=== PATIENT | female | born 1970 | race Caucasian/White ===

== ENCOUNTER 2019-08-04 13:12 | Observation (INO) | payer OTHER, SELFPAY ==
[2019-08-04] VITALS (14 sets, daily range): BP systolic 125–147; BP diastolic 71–99; PULSE 76–111; RESP 16–26; TEMP 36.2–36.9; O2SAT 94–100; BMI 37.0
--- NOTE | ~2019-08-04 | MR_ITS ---
EXAMINATION: MR shoulder RT wo con DATE: 08/05/2019 12:52 INDICATION: Right shoulder pain. TECHNIQUE: Magnetic resonance imaging (MRI) of the right shoulder was performed without intravenous c ontrast. Sequences included axial PD-weighted FS FSE, coronal oblique PD-weighted FS FSE and T2-weigh tate FS FSE, and sagittal oblique T2-weighted FS FSE and T1-weighted FSE. COMPARISON: Right shoulder radiographs 08/04/2019 FINDINGS: Coracoacromial arch: The acromion undersurface is flat in morphology (type I). There is moderate acromioclavicular joint o steoarthritis. There is mild subacromial/subdeltoid bursitis. Rotator cuff: There is moderate supraspinatus and infraspinatus tendinopathy. Teres minor tendon is normal. Subscap ularis tendon is normal. There is no asymmetric fatty atrophy of the rotator cuff muscle bellies. Biceps tendon and glenoid labrum: Biceps tendon is in bicipital groove. Intra-articular biceps tendon is normal. The glenoid labrum is normal. Fluid: There is a small glenohumeral joint effusion. Bones/cartilage: The glenoid cartilage is normal. Humeral head cartilage is normal. IMPRESSION: 1. Moderate rotator cuff tendinopathy. No tear. 2. Moderate acromioclavicular joint osteoarthritis. 3. Mild subacromial/subdeltoid bursitis. 4. Small glenohumeral joint effusion. Reviewed, dictated and finalized at location A. ILITY CLAIMS EXAMINER
--- NOTE | ~2019-08-04 | XR_ITS ---
EXAMINATION: XR chest 2V 08/04/2019 14:13 INDICATION: Chest pain and arm numbness PROCEDURE: 2 view chest COMPARISON: Comparison to multiple prior studies sequentially, with oldest reviewed study dated 08/22. FINDINGS: The lungs are clear. The cardiomediastinal silhouette is within normal limits. There are no pleural effusions. There is no pneumothorax suspected. IMPRESSION: 1: NO ACUTE CARDIOPULMONARY DISEASE. Reviewed, dictated and finalized at location B. REPAIRER TOWER
--- NOTE | ~2019-08-04 | CT_ITS ---
EXAMINATION: CT brain wo con DATE: 08/04/2019 13:58 INDICATION: Numbness. TECHNIQUE: Computed tomography (CT) of the head was performed without intravenous contrast. The dose- length product was 605.33 mGy-cm. Automated exposure control and iterative reconstruction technique w ere employed. COMPARISON: None FINDINGS: There is a kyle cisterna magna. No acute intracranial hemorrhage, infarction, mass or mass effect. Mild generalized atrophy. No ventriculomegaly or midline shift. Basilar cisterns are patent. There is mild mucosal thickening of the ethmoid sinuses. Mastoids are pneumatized. No depressed skull fractures. IMPRESSION: 1. No acute intracranial abnormality. 2: Kyle cisterna magna 3: Mild sinus disease. Reviewed, dictated and finalized at location B. TER MAINTENANCE
--- NOTE | ~2019-08-04 | MR_ITS ---
EXAMINATION: MR cervical spine wo con DATE: 08/05/2019 12:52 INDICATION: Right arm numbness and tingling. TECHNIQUE: Magnetic resonance imaging (MRI) of the cervical spine was performed without intravenous c ontrast. Sequences included sagittal T2-weighted FSE, sagittal STIR FSE, sagittal T1-weighted FSE, ax ial MERGE, and axial T2-weighted FSE. COMPARISON: None FINDINGS: Motion artifact is noted. Bone alignment is normal. Vertebral body heights are normal. Ther e is mildly decreased disc height at C5-C6. The spinal cord signal intensity is normal. The following disc levels are specifically discussed: C2-C3: The disc does not extend beyond the endplate margin. There is no uncovertebral joint osteoarth ritis. There is mild bilateral facet joint osteoarthritis. There is no neural foraminal stenosis. The re is no central canal stenosis. C3-C4: The disc is bulging. There is mild bilateral uncovertebral joint osteoarthritis. There is no f acet joint osteoarthritis. There is mild bilateral neural foraminal stenosis. There is mild central c anal stenosis. C4-C5: The disc does not extend beyond the endplate margin. There is no uncovertebral joint osteoarth ritis. There is no facet joint osteoarthritis. There is no neural foraminal stenosis. There is no collins tral canal stenosis. C5-C6: The disc is bulging. There is severe right and moderate left uncovertebral joint osteoarthriti s. There is no facet joint osteoarthritis. There is moderate right and mild left neural foraminal simeon nosis. There is mild central canal stenosis with ventral indentation of the spinal cord. C6-C7: The disc does not extend beyond the endplate margin. There is no uncovertebral joint osteoarth ritis. There is no facet joint osteoarthritis. There is no neural foraminal stenosis. There is no collins tral canal stenosis. C7-T1: The disc does not extend beyond the endplate margin. There is no uncovertebral joint osteoarth ritis. There is mild bilateral facet joint osteoarthritis. There is mild bilateral neural foraminal s tenosis. There is no central canal stenosis. IMPRESSION: 1. Mild cervical spondylosis. Reviewed, dictated and finalized at location A. 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
--- NOTE | ~2019-08-04 | XR_ITS ---
EXAMINATION: XR shoulder RT min 2V DATE: 08/04/2019 14:13 INDICATION: Right shoulder pain. TECHNIQUE: 4 views of right shoulder were obtained. COMPARISON: Right shoulder radiographs 09/09/2018 FINDINGS: Bone alignment is normal. No fracture. Glenohumeral joint is normal. There is mild acromioc lavicular joint osteoarthritis. IMPRESSION: 1. Mild right acromioclavicular joint osteoarthritis. Reviewed, dictated and finalized at location A. L SUMMER INTERN
--- NOTE | 2019-08-04 13:15 | ECG_ITS ---
Measurements Intervals [place] Rate: 100 P: 67 CT: 162 QRS: 50 QRSD: 101 T: 48 QT: 339 QTc: 439 Interpretive Statements SINUS TACHYCARDIA MINIMAL Q WAVES- INFERIOR LEADS BORDERLINE ECG Electronically Signed On 08-04-2019 13:21:01 NURSING SURGICAL SERVICES DIRECTOR by Dejuan Cardoso D.O.
[2019-08-04 13:34] LABS: Basophils Absolute Auto 0.1 K/mm3 (0.0-0.1); Basophils Percent Auto 0.9 % (0.2-1.2); Eosinophils Absolute Auto 0.2 K/mm3 (0-0.3); Eosinophils Percent Auto 3.5 % (0-4.4); Hematocrit 41.5 % (37.0-47.0); Hemoglobin 13.8 g/dL (12.0-15.0); Immature Granulocyte Absolute 0.01 K/mm3 (0.00-0.031); Immature Granulocyte Percent A 0.2 % (0-0.5); Lymphocytes Absolute Auto 2.45 K/mm3 (0.9-3.2); Lymphocytes Percent Auto 43.1 % (18.3-44.2); Mean Corpuscular HGB Conc 33.3 g/dl (32-36); Mean Corpuscular Hemoglobin 32.6 pg (26-34); Mean Corpuscular Volume 98.1 fl (80-100); Mean Platelet Volume 9.1 fl (7.4-10.4); Monocytes Absolute Auto 0.5 K/mm3 (0.1-0.6); Monocytes Percent Auto 8.1 % (2.6-8.5); Neutrophils Absolute Auto 2.5 K/mm3 (1.3-6.7); Neutrophils Percent Auto 44.2 % (45.5-73.1); Platelet Count Result 271 k/mm3 (150-375); Red Blood Count 4.23 M/mm3 (4.2-5.4); Red Cell Distribution Width 12.3 % (11.5-14.5); White Blood Count 5.7 K/mm3 (4.5-10.0)
--- NOTE | 2019-08-04 13:42 | ED.EXTPRO ---
HPI - Extremity Problem General Chief complaint: Chest Pain Stated complaint: Pain/numbess in back and right arm Time Seen by Provider: 08/04/19 13:37 Source: patient and RN notes reviewed Mode of arrival: ambulatory Limitations: no limitations History of Present Illness HPI Narrative: Pt is a 49 y/o female who presents to the ED with c/o rt arm pain. 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 Pt notes that she has had pain radiating from her rt hand up her rt arm and into her rt posterior shoulder. She states that movement of her rt arm aggravates her pain. Pt states that she has had intermittent numbness in her rt arm and swelling in her rt hand. Pt also reports lt sided chest tightness as of yesterday, a cough, and chronic back pain, but denies any numbness in her legs or fever. She notes that her CP is currently resolved. MD Complaint: extremity pain Pain Consistency: constant Location: right and upper extremity Exacerbating factors: range of motion Associated symptoms: chest pain (lt sided chest tightness (resolved)) and other (numbness in rt arm; swelling in rt hand; cough; back pain (chronic)) Related Data Home Medications Medication Instructions Recorded Confirmed hydrocodone-acetaminophen [Vicodin 1 tablet PO BID PRN 08/04/19 HP] metformin mg PO 08/04/19 Allergies Allergy/AdvReac Type Severity Reaction Status Date / Time No Known Allergies Allergy Unknown Unverified 08/04/19 13:18 Review of Systems Review of Systems: Narrative: CONSTITUTIONAL: Denies fever, chills, or sweats. CARDIOVASCULAR: Reports lt sided chest tightness (resolved). Denies palpitations or edema. RESPIRATORY: Reports cough. Denies dyspnea. GASTROINTESTINAL: Denies abdominal pain, nausea, vomiting, or diarrhea. MUSCULOSKELETAL: Reports rt arm pain extending into rt posterior shoulder, swelling in rt hand, and chronic back pain. NEUROLOGIC: Denies headache or weakness. Reports numbness in rt arm. Denies numbness in legs. All systems reviewed & are unremarkable except as noted in HPI and below PMFSH Past Medical History Medical History Anxiety Bowel obstruction Bowel perforation Bronchitis COPD (chronic obstructive pulmonary disease) Depression Diverticulitis Emphysema of lung Pneumonia Type 2 diabetes mellitus Surgical History Surgical History History of ankle surgery Hx of knee surgery Hx of spinal surgery Hx of tubal ligation Family History Family History (Updated 03/27/17 @ 10:23 by DOCTOR UNKNOWN) Mother Patient's mother is in good health Family history of Alzheimer's disease Sibling Family history of type 2 diabetes mellitus Father Family history of malignant neoplasm of kidney Social History Social History Smoking status: Current every day smoker Second hand tobacco smoke exposure: No Alcohol intake: current Gender identity (if verbalized by the patient): Female Exam Narrative: Exam Narrative: GENERAL: Well-appearing, well-nourished, and in no acute distress. HEAD: Normocephalic, atraumatic. EYES: PERRLA and EOMI. ENT: Nares clear, no rhinorrhea or epistaxis. Mucous membranes moist. NECK: Supple. No cervical midline tenderness. No step-offs or deformities. CHEST: Bilateral expiratory wheezing. No respiratory distress. HEART: Regular rate and rhythm. No murmur heard. Normal peripheral pulses. ABDOMEN: Soft, nontender, nondistended, normal active bowel sounds. EXTREMITIES: No edema. Tenderness over trapezius. Pain with abduction of rt upper extremity. Tenderness over the trapezius. This reproduces pain. Intact sensation over the deltoid. Intact sensation median, ulnar, radial nerve distribution. Crm Architect strength 5 out of 5. Radial pulse is 2+. SKIN: Warm, dry, no rash. NEURO: No focal deficits. Alert and or
[2019-08-04 13:43] LABS: INR 0.9; Prothrombin Time 11.3 Seconds (11.1-14.7)
[2019-08-04 13:44] LABS: Partial Thromboplastin Time 27.9 SECONDS (22.3-36.8)
[2019-08-04] MEDS: ASPIRIN 81 MG CHEWABLE TABLET 324 MG PO (13:45)
[2019-08-04 13:46] LABS: Blood Urea Nitrogen 13 mg/dL (7-17); Calcium 8.4 mg/dL (8.4-10.2); Carbon Dioxide 22 mmol/L (22-30); Chloride 105 mmol/L (98-107); Estimated CRCL calculation 130 ml/min; Estimated Glomerular Filt Rate > 60; Glucose 148 mg/dL (65-105); Potassium 4.1 mmol/L (3.4-5.0); Sodium 139 mmol/L (137-145)
--- NOTE | 2019-08-04 13:51 | PC.NURSE ---
Patient to CT at this time.
[2019-08-04 13:59] LABS: Troponin I 0.065 ng/mL (0.000-0.034)
--- NOTE | 2019-08-04 14:12 | PCRCNOTE ---
[address] 1406 Pt in X-ray. 1415 Pt returned to room.
[2019-08-04] MEDS: ALBUTEROL SULFATE NEB 2.5 MG/0.5 ML INH 5 MG INHALATION ×2 (14:15→21:42)
[2019-08-04] MEDS: IPRATROPIUM BR 0.02% INH SOLN 0.5 MG/2.5 ML VIAL 1 MG INHALATION (14:15)
[2019-08-04] MEDS: ACETAMINOPHEN 500 MG TABLET 1000 MG PO (14:43)
[2019-08-04] MEDS: methylPREDNISolone SOD SUCC 125 MG VIAL IV PUSH (14:44)
[2019-08-04] MEDS: KETOROLAC 15 MG/ML VIAL (*BKC) IV PUSH (14:44)
[2019-08-04] MEDS: SODIUM CHLORIDE 0.9% IV 500 ML 999 ML IV CONT (14:45)
[2019-08-04 17:13] LABS: Troponin I 0.047 ng/mL (0.000-0.034)
--- NOTE | 2019-08-04 17:20 | PC.NURSE ---
This patient, Padma Santana, was admitted to IMU Room 204-01. Patient/family oriented to hospital policies and general routines including ID bracelet, bed and alarms, visiting hours, pain management, procedures, bathroom and other care routines, personal items, smoking policy, room service/diet, and visiting hours. Valuables list has been completed. Information on how to activate the Rapid Response Team has been discussed. Patient/Family are encouraged to report perceived risks to care and to ask questions if they do not understand what they are told or what they should do.
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
[2019-08-04 20:10] LABS: Troponin I 0.023 ng/mL (0.000-0.034)
[2019-08-04 20:34] LABS: Hemoglobin A1C 5.8 % (<5.7)
[2019-08-04 20:49] LABS: Glucose Point of Care 224 (65-105)
[2019-08-04] MEDS: IPRATROPIUM BR 0.02% INH SOLN 0.5 MG/2.5 ML VIAL INHALATION (21:42)
[2019-08-05] VITALS (14 sets, daily range): BP systolic 130–140; BP diastolic 68–96; PULSE 59–111; RESP 18–20; TEMP 36.1–36.7; O2SAT 96–98
--- NOTE | 2019-08-05 | EST_ITS ---
Patient Info Name: Padma Santana Age: 49 years : 1970 Gender: Female Ht: 69 in Wt: 250 lbs BSA: 2.40 m2 Exam Date: 08/05/2019 8:26 AM [facility] Patient Status: Inpatient Admit Date: 08/04/2019 Staff Ordering Physician: Oscar Augustin MD Seaming Machine Operator: Zully Balderas RDCS Attending Provider: DR ARTIS Exam Type: CA stress echo Study Info Indications R07.89 - Other chest pain Treadmill exercise stress echocardiogram is performed. Summary 1. Patient exercised for 4 minutes and 18 seconds on Andrews protocol achieving \R\7 METs. HR was 93 at rest, went up to 145 which was 84% of her max target heart rate. BP was 133/91 at rest, went up to 162/70 at peak exercise. No evidence of ischemia on EKG at rest or peak stress. LV function was normal to hyperdynamic at rest and augmented to hyperdynamic at peak exercise. LV cavity became smaller at peak exercise. Summary: Negative stress test by EKG and echocardiogram criteria. Protocol: Andrews Stress ECG Details Stage: REST Duration (min): 1 min : 6 sec Speed (mph): 0.0 Grade (%): 0 HR (bpm): 108 SBP (mmHg): 133 DBP (mmHg): 91 METS: --- Stage: REST Duration (min): 12 min : 21 sec Speed (mph): 0.0 Grade (%): 0 HR (bpm): 110 SBP (mmHg): 133 DBP (mmHg): 91 METS: --- Stage: STAGE 1 Duration (min): 1 min : 0 sec Speed (mph): 1.7 Grade (%): 10 HR (bpm): 127 SBP (mmHg): 133 DBP (mmHg): 91 METS: --- Stage: STAGE 1 Duration (min): 2 min : 0 sec Speed (mph): 1.7 Grade (%): 10 HR (bpm): 136 SBP (mmHg): 133 DBP (mmHg): 91 METS: --- Stage: STAGE 1 Duration (min): 3 min : 0 sec Speed (mph): 1.7 Grade (%): 10 HR (bpm): 140 SBP (mmHg): 161 DBP (mmHg): 80 METS: --- Stage: STAGE 2 Duration (min): 1 min : 0 sec Speed (mph): 2.5 Grade (%): 12 HR (bpm): 144 SBP (mmHg): 161 DBP (mmHg): 80 METS: --- Stage: STAGE 2 Duration (min): 1 min : 18 sec Speed (mph): 0.0 Grade (%): 0 HR (bpm): 145 SBP (mmHg): 161 DBP (mmHg): 80 METS: --- Stage: RECOVERY Duration (min): 0 min : 41 sec Speed (mph): 0.0 Grade (%): 0 HR (bpm): 124 SBP (mmHg): 162 DBP (mmHg): 70 METS: --- Stage: RECOVERY Duration (min): 1 min : 41 sec Speed (mph): 0.0 Grade (%): 0 HR (bpm): 114 SBP (mmHg): 162 DBP (mmHg): 70 METS: --- Stage: RECOVERY Duration (min): 2 min : 41 sec Speed (mph): 0.0 Grade (%): 0 HR (bpm): 113 SBP (mmHg): 159 DBP (mmHg): 67 METS: --- Stage: RECOVERY Duration (min): 3 min : 41 sec Speed (mph): 0.0 Grade (%): 0 HR (bpm): 102 SBP (mmHg): 159 DBP (mmHg): 67 METS: --- Stage: RECOVERY Duration (min): 4 min : 41 sec Speed (mph): 0.0 Grade (%): 0 HR (bpm): 102 SBP (mmHg): 152 DBP (mmHg): 68 METS: ---
[2019-08-05 05:10] LABS: Basophils Percent Auto 0.2 % (0.2-1.2); Hematocrit 39.9 % (37.0-47.0); Hemoglobin 13.4 g/dL (12.0-15.0); Immature Granulocyte Absolute 0.03 K/mm3 (0.00-0.031); Immature Granulocyte Percent A 0.3 % (0-0.5); Lymphocytes Absolute Auto 0.85 K/mm3 (0.9-3.2); Lymphocytes Percent Auto 8.6 % (18.3-44.2); Mean Corpuscular HGB Conc 33.6 g/dl (32-36); Mean Corpuscular Hemoglobin 33.1 pg (26-34); Mean Corpuscular Volume 98.5 fl (80-100); Mean Platelet Volume 9.7 fl (7.4-10.4); Monocytes Absolute Auto 0.2 K/mm3 (0.1-0.6); Monocytes Percent Auto 1.5 % (2.6-8.5); Neutrophils Absolute Auto 8.8 K/mm3 (1.3-6.7); Neutrophils Percent Auto 89.4 % (45.5-73.1); Platelet Count Result 282 k/mm3 (150-375); Red Blood Count 4.05 M/mm3 (4.2-5.4); Red Cell Distribution Width 11.9 % (11.5-14.5); White Blood Count 9.9 K/mm3 (4.5-10.0)
[2019-08-05 05:27] LABS: CRP < 0.5 mg/dL (<1.0); Cholesterol 160 mg/dL (0-200); HDL Direct 54 mg/dL; Magnesium 2.1 mg/dL (1.6-2.3); Triglycerides 114 mg/dL (<150)
[2019-08-05 05:35] LABS: LDL Cholesterol Direct 86 mg/dL
[2019-08-05 06:11] LABS: Thyroid Stimulating Hormone Reflex 0.471 uIU/mL (0.465-4.68)
[2019-08-05 07:51] LABS: Glucose Point of Care 127 (65-105)
[2019-08-05] MEDS: ALBUTEROL SULFATE NEB 2.5 MG/0.5 ML INH 5 MG INHALATION ×2 (08:16→14:27)
[2019-08-05] MEDS: IPRATROPIUM BR 0.02% INH SOLN 0.5 MG/2.5 ML VIAL INHALATION ×2 (08:16→14:27)
[2019-08-05] MEDS: predniSONE 20 MG TABLET 60 MG PO (09:59)
[2019-08-05] MEDS: ASPIRIN 81 MG CHEWABLE TABLET PO (09:59)
[2019-08-05] MEDS: CYCLOBENZAPRINE HCL 5 MG TABLET PO (10:00)
--- NOTE | 2019-08-05 10:05 | PM.CNCAR ---
Assessment and Plan Assessment and plan (1) Chest pain: Code(s): R07.9 - Chest pain, unspecified Status: Acute Assessment and Plan: With indeterminate trop elevation at 0.06 that subsequently normalized EKG with no ischemic changes Chest pain characteristic are atypical for angina Given her cardiovascular risk factors including obesity, DM and smoking will proceed with stress echo If that is normal then she should be stable for discharge from cardiac standpoint (2) Type 2 diabetes mellitus: Code(s): E11.9 - Type 2 diabetes mellitus without complications Status: Chronic Assessment and Plan: On Metformin (3) Tobacco abuse: Code(s): Z72.0 - Tobacco use Status: Acute Assessment and Plan: Smoking cessation and other lifestyle modifications is highly recommended History of Present Illness History of Present Illness Consult date/time: 08/05/19 10:05 49 year old female with h/o of DM on Metformin and tobacco abuse who presented with right shoulder pain. She reports pain from right shoulder down to the arm associated with numbness and tingling. Troponin checked in EF and was very mildly elevated at 0.06. She denies any active chest pain now but admits to prior chest pains including on Sunday. She has stable exertional dyspnea attributed to her tobacco abuse. Denies dizziness, lightheadedness or syncope. EKG with sinus rhythm with small inferior Q waves. Reason For Visit: Elevated troponin/shoulder strain/copd exacerbatio Review of Systems Review of Systems: All systems reviewed & are unremarkable except as noted in HPI and below Constitutional: Constitutional: Denies fatigue and Denies headache(s) Eyes: Eyes: Denies blurry vision ENT: Reports Normal hearing present and Denies headache(s) Cardiovascular: Cardiovascular: Denies chest pain, Denies diaphoresis, Denies pedal edema, Denies leg edema, Denies lightheadedness, Denies palpitations and Denies dyspnea Respiratory: Respiratory: Denies cough and Denies dyspnea Gastrointestinal: Gastrointestinal: Denies abdominal pain Musculoskeletal: Musculoskeletal: Denies back pain Neurologic: Reports Normal hearing present and Denies headache(s) Psychiatric: Psychiatric: Denies anxiety Endocrine: Endocrine: Denies fatigue and Denies palpitations [facility] Past Medical History Medical History (Updated 08/05/19 @ 10:11 by Helena White MD) Acute exacerbation of chronic obstructive pulmonary disease Anxiety Bowel obstruction Bowel perforation Patient had microperforation diverticulitis in 2017 and was treated conservatively without surgery Bronchitis COPD (chronic obstructive pulmonary disease) Degenerative disc disease Depression Diverticulitis Emphysema of lung Pneumonia Type 2 diabetes mellitus Surgical History Surgical History (Updated 08/04/19 @ 20:10 by Lilliana Vasquez NP) History of ankle surgery right ankle History of endometrial ablation Hx of knee surgery left knee Hx of spinal surgery L3, L4 Hx of tubal ligation Family History Family History (Updated 08/04/19 @ 20:11 by Lilliana Vasquez NP) Mother Alzheimer's disease Sibling Diabetes mellitus Type 2 Father Renal carcinoma Sibling No problems noted. Social History Social History (Updated 08/04/19 @ 20:27 by Lilliana Vasquez NP) Social History: Patient reports she has one child, a daughter. She has 1 brother and 2 sisters. She had another brother who is . Smoking packs per day: 0.5 Smoking cigarettes per day: 10.0 Years smoked: 25 Smoking pack-years: 12.50 Smoking status: Current every day smoker Tobacco type: cigarettes Second hand tobacco smoke exposure: No Alcohol intake: current Alcohol use details: Reports she occasionally drinks, goes out about once every 3 months and has a few drinks with friends Substance use: never Living arrangements: with f
[2019-08-05] MEDS: LIDOCAINE 5% PATCH 1 PATCH TRANSDERM (12:58)
[2019-08-05 13:02] LABS: Glucose Point of Care 193 (65-105)
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
== END 2019-08-05 16:05 | disposition home or self-care (01) ==
LOC: ANHED 15:43 → ANHIMU 18:28
PROVIDERS: Emergency Medicine; Nurse Practitioner; Admitting Provider Family Medicine; Emergency Provider Emergency Medicine; PCP Family Medicine Adolescent Medicine; Visit Provider Internal Medicine
DX: S46.911A Strain of unspecified muscle, fascia and tendon at shoulder and upper arm level, right arm, initial encounter (principal); X58.XXXA Exposure to other specified factors, initial encounter; Y99.0 Civilian activity done for income or pay; R79.89 Other specified abnormal findings of blood chemistry; F41.9 Anxiety disorder, unspecified; E11.9 Type 2 diabetes mellitus without complications; J43.9 Emphysema, unspecified; F17.210 Nicotine dependence, cigarettes, uncomplicated; M19.011 Primary osteoarthritis, right shoulder; M47.892 Other spondylosis, cervical region; M54.9 Dorsalgia, unspecified; G89.29 Other chronic pain; Z79.84 Long term (current) use of oral hypoglycemic drugs; Z79.899 Other long term (current) drug therapy
CPT/HCPCS: 36415; 70450; 71046; 72141; 73030; 73221; 80048; 80061; 83036; 83735; 84443; 84484; 85025; 85610; 85730; 86140; 87804; 93005; 93351; 94640; 96361; 96374; 96375; 99285; A9270; G0378; J1885; J2930; J7040; J7512

== ENCOUNTER 2021-05-20 21:20 | Emergency (ER) | payer OTHER, SELFPAY ==
--- NOTE | ~2021-05-20 | XR_ITS ---
XR shoulder LT min 2V DATE: 05/20/2021 23:05 INDICATION: Left shoulder pain, radiating TECHNIQUE: 4 views COMPARISON: None FINDINGS: There is moderately prominent osteoarthritic change of the left glenohumeral joint and mild degenerative change at the acromioclavicular joint. No fracture or dislocation, periosteal reaction or bone destruction. There is interbody spinal fusion at C5-6. IMPRESSION: Moderately prominent osteoarthritis at left glenohumeral joint Mild degenerative change at the left acromioclavicular joint Reviewed, dictated and finalized at location A. TRANSPORTATION OPERATOR
[2021-05-20 21:26] VITALS: BP 181/108; PULSE 111; RESP 22; TEMP 36.6; O2SAT 100
--- NOTE | 2021-05-20 21:41 | PC.NURSE ---
pt. hysterical in waiting room and hyperventilating. pt. instructed to focus on slow breathing.
--- NOTE | 2021-05-20 22:01 | ECG_ITS ---
Measurements Intervals [place] Rate: 113 P: 50 AR: 173 QRS: 20 QRSD: 93 T: 55 QT: 315 QTc: 433 Interpretive Statements SINUS TACHYCARDIA BASELINE ARTIFACT- I, III, AVR, AVL, AVF, V2 ABNORMAL ECG Electronically Signed On 05-21-2021 6:47:35 SOLID TIRE FINISHER by Dejuan Cardoso D.O.
--- NOTE | 2021-05-20 23:55 | ED.GENADULT ---
HPI - General Adult General Chief complaint: Extremity Injury, Upper Stated complaint: L shoulder pain Time Seen by Provider: 05/20/21 23:15 History of Present Illness HPI narrative: Patient is a 51-year-old female presents emerged from with chief complaint of left shoulder pain. Patient reports that she has pain that shoots from her left neck down her left arm. The patient states that sharp worse with movement and improved with rest. The patient states she took [place] and took a Flexeril and had no improvement in her symptoms. Patient states the pain is worse with movement states that sharp denies any numbness or tingling. Patient reports she has history of arthritis of her shoulder also reports that she has history of degenerative disc disease in her neck. The patient states she is had surgeries before. Related Data Home Medications Medication Instructions Recorded Confirmed hydrocodone-acetaminophen [Vicodin 1 tablet PO QID PRN 08/04/19 08/04/19 HP] metformin 500 mg PO DAILY 08/04/19 08/04/19 Allergies Allergy/AdvReac Type Severity Reaction Status Date / Time No Known Allergies Allergy Unknown Unverified 08/04/19 13:18 Review of Systems Review of Systems: A 10 system review of systems was completed on the patient and is negative except for what is stated in the HPI. Nursing and ancillary documentation was reviewed. [facility] Past Medical History Medical History Acute exacerbation of chronic obstructive pulmonary disease Anxiety Bowel obstruction Bowel perforation Patient had microperforation diverticulitis in 2017 and was treated conservatively without surgery Bronchitis COPD (chronic obstructive pulmonary disease) Degenerative disc disease Depression Diverticulitis Emphysema of lung Pneumonia Type 2 diabetes mellitus Surgical History Surgical History History of ankle surgery right ankle History of endometrial ablation Hx of knee surgery left knee Hx of spinal surgery L3, L4 Hx of tubal ligation Family History Family History Mother Alzheimer's disease Sibling Diabetes mellitus Type 2 Father Renal carcinoma Sibling No problems noted. Social History Social History Social History: Patient reports she has one child, a daughter. She has 1 brother and 2 sisters. She had another brother who is . Smoking packs per day: 0.5 Smoking cigarettes per day: 10.0 Years smoked: 25 Smoking pack-years: 12.50 Smoking status: Current every day smoker Tobacco type: cigarettes Second hand tobacco smoke exposure: No Alcohol intake: current Alcohol use details: Reports she occasionally drinks, goes out about once every 3 months and has a few drinks with friends Substance use: never Additional living arrangements comments: Resides with and her mother who has Alzheimer's. At present she is caring for both of them. Her just had recent C-spine surgery. 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 HEAD: Normocephalic, atraumatic. EYES: PERRLA and EOMI. ENT: Nares clear, no rhinorrhea or epistaxis. Mucous membranes moist. NECK: Supple. There is tenderness in the paraspinous muscles of the left neck CHEST: Clear to auscultation. No respiratory distress. HEART: Regular rate and rhythm. No murmur heard. Normal peripheral pulses. ABDOMEN: Soft, nontender, nondistended, normal active bowel sounds. EXTREMITIES: Normal range of motion. No edema. There is tenderness to palpatio
[2021-05-21] MEDS: DEXAMETHASONE SOD PHOS INJ 4 MG/ML VIAL 10 MG IM (00:02)
[2021-05-21] MEDS: KETOROLAC (*BKC) 60 MG/2 ML VIAL IM (00:05)
[2021-05-21] MEDS: MORPHINE SULFATE (*CRX) 4 MG/ML INJ IM (00:07)
[2021-05-21 00:11] VITALS: BP 159/96; PULSE 116; RESP 24; O2SAT 98
== END 2021-05-21 00:25 | disposition home or self-care (01) ==
PROVIDERS: Emergency Provider Emergency Medicine; PCP Family Medicine Adolescent Medicine
DX: M54.12 Radiculopathy, cervical region (principal); M25.512 Pain in left shoulder; E11.9 Type 2 diabetes mellitus without complications; J43.9 Emphysema, unspecified; F17.210 Nicotine dependence, cigarettes, uncomplicated
CPT/HCPCS: 73030; 93005; 96372; 99284; A4565; J1100; J1885; J2270

== ENCOUNTER 2022-06-05 10:10 | Emergency (ER) | payer OTHER, SELFPAY ==
--- NOTE | ~2022-06-05 | XR_ITS ---
EXAMINATION: XR hand LT min 3V DATE: 06/05/2022 11:19 INDICATION: Left hand injury. TECHNIQUE: 3 views of left hand were obtained. COMPARISON: Left hand radiographs 12/16/2005 FINDINGS: Bone alignment is normal. No fracture. Joint spaces are well maintained. IMPRESSION: 1. No fracture. Reviewed, dictated and finalized at location A. ITIAN ASSISTANT IMPRESSION: 1. No fracture.
--- NOTE | ~2022-06-05 | XR_ITS ---
EXAMINATION: XR facial bones min 3V DATE: 06/05/2022 11:18 INDICATION: Face injury and left cheek pain. TECHNIQUE: 4 views of the facial bones were obtained. COMPARISON: Head CT 08/04/2019 FINDINGS: Bone alignment is normal. No fracture. There is a prosthetic disc in cervical spine. IMPRESSION: 1. No fracture. Reviewed, dictated and finalized at location A. ORT TEACHER IMPRESSION: 1. No fracture.
[2022-06-05 10:14] VITALS: BP 143/83; PULSE 117; RESP 20; TEMP 36.9; O2SAT 97
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
== END 2022-06-05 11:59 | disposition home or self-care (01) ==
PROVIDERS: Emergency Provider Nurse Practitioner; PCP Family Medicine Adolescent Medicine
DX: S60.222A Contusion of left hand, initial encounter (principal); S00.83XA Contusion of other part of head, initial encounter; Y04.0XXA Assault by unarmed brawl or fight, initial encounter; F17.210 Nicotine dependence, cigarettes, uncomplicated; J44.9 Chronic obstructive pulmonary disease, unspecified; E11.9 Type 2 diabetes mellitus without complications
CPT/HCPCS: 70150; 73130; 99214; G0463

== ENCOUNTER 2023-04-19 19:46 | Emergency (ER) | payer OTHER, SELFPAY ==
[2023-04-19 19:56] VITALS: BP 133/81; PULSE 118; RESP 20; TEMP 37.1; O2SAT 98
--- NOTE | 2023-04-19 20:17 | ED.BACK ---
HPI - Back Pain/Injury General Chief Complaint: Back Pain/Injury Stated Complaint: Lower back pain Time Seen by Provider: 04/19/23 20:10 Source: patient Mode of arrival: ambulatory Limitations: no limitations History of Present Illness HPI Narrative: 53-year-old female with a history of chronic back pain and sciatica presented for complaint of new left lower back pain. Onset yesterday while standing cooking dinner. Denies known injury. She states pain is unrelieved with tens unit, ice/heat, hydrocodone or NSAIDs. Pain is worse with coughing or movements. States this does not feel like her sciatica pain. She denies pain radiating into the hip or leg. Denies numbness, tingling, weakness of the lower extremities. Denies change in gait, saddle paresthesia or loss of bowel or bladder. Patient is scheduled with her PCP tomorrow morning. Related Data Allergies Allergy/AdvReac Type Severity Reaction Status Date / Time No Known Allergies Allergy Unknown Verified 04/19/23 20:04 Review of Systems Review of Systems: CONSTITUTIONAL: Denies body aches, fever, chills EYES: Denies visual changes CARDIOVASCULAR: Denies chest pain, palpitations, or edema. RESPIRATORY: Denies cough or dyspnea. GASTROINTESTINAL: Denies abdominal pain, nausea, vomiting, or diarrhea. SKIN: Denies rash, itching, or wounds. MUSCULOSKELETAL: reports back pain NEUROLOGIC: Denies headache, numbness, tingling, or weakness. All systems reviewed & are unremarkable except as noted in HPI and below PMFSH Past Medical History Medical History Acute exacerbation of chronic obstructive pulmonary disease Anxiety Bowel obstruction Bowel perforation Patient had microperforation diverticulitis in 2017 and was treated conservatively without surgery COPD (chronic obstructive pulmonary disease) Degenerative disc disease Depression Diabetes Diverticulitis Emphysema of lung Pneumonia Radiculopathy, cervical region Type 2 diabetes mellitus Surgical History Surgical History History of ankle surgery right ankle History of endometrial ablation Hx of knee surgery left knee Hx of spinal surgery L3, L4 Hx of tubal ligation Family History Family History Mother Alzheimer's disease Cerebrovascular accident Hypertension Sibling Diabetes mellitus Type 2 Asthma Hypertension Father Renal carcinoma Colon polyp Sibling Diabetes mellitus Hypertension Other Depression Social History Social History Social History: Patient reports she has one child, a daughter. She has 1 brother and 2 sisters. She had another brother who is . Smoking packs per day: 0.5 Smoking cigarettes per day: 10.0 Years smoked: 25 Smoking pack-years: 12.50 Smoking status: Current every day smoker Tobacco type: cigarettes Second hand tobacco smoke exposure: No Alcohol intake: never Alcohol use details: Reports she occasionally drinks, goes out about once every 3 months and has a few drinks with friends Substance use: never Substance use type: does not use Lack of Transportation: No Lack of Food: Sometimes True Current Housing: I Have Housing Concerned About Future Housing: No Difficulty Paying Gas/Electric Bills: No Difficulty Paying for Meds: No Currently Unemployed: YES Education: Trade/Vocational Certificate Difficulty w/ Childcare or Family Care: No Living arrangements: with family Additional living arrangements comments: Resides with and her mother who has Alzheimer's. At present she is caring for both of them. Her just had recent C-spine surgery. 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
== END 2023-04-19 20:22 | disposition left against medical advice (07) ==
PROVIDERS: Emergency Provider Nurse Practitioner Family; PCP Family Medicine Adolescent Medicine
DX: M54.50 Low back pain, unspecified (principal); F17.210 Nicotine dependence, cigarettes, uncomplicated; J44.9 Chronic obstructive pulmonary disease, unspecified; E11.9 Type 2 diabetes mellitus without complications
CPT/HCPCS: 81003; 99212; G0463

== ENCOUNTER 2024-08-27 12:02 | Emergency (ER) | payer OTHER, SELFPAY ==
--- NOTE | ~2024-08-27 | CT_ITS ---
EXAMINATION: CT abdomen pelvis w con DATE: 08/27/2024 14:12 INDICATION: Mid abdomen pain TECHNIQUE: Computed tomography (CT) of the abdomen and pelvis was performed with 100 cc Omnipaque 350 intravenous contrast. The dose-length product was 1668.17 mGy-cm. Automated exposure control and ite rative reconstruction technique were employed. COMPARISON: CT dated 04/02/2019. FINDINGS: There is dependent atelectasis. Heart size normal. No significant pleural or pericardial ef fusion. There are multiple dilated loops of proximal and mid small bowel with air-fluid levels at mul tiple locations. There is transition to normal caliber small bowel in the ileum. Colonic diverticulos is without evidence for diverticulitis. Normal appendix. There is gas throughout the colon. Fatty infiltration of the liver. The spleen, pancreas, adrenal glands and kidneys are normal. Gallbla dder is present. No significant vascular abnormality. No lymphadenopathy. Moderate-severe lumbar spon dylosis. No focal lytic or blastic lesions. IMPRESSION: 1. Dilated small bowel with air-fluid levels with transition to normal caliber in the ileum. Findings may represent partial small bowel obstruction and ileus. Reviewed, dictated and finalized at location A.
[2024-08-27 12:04] VITALS: BP 151/106; PULSE 130; RESP 20; TEMP 36.9; O2SAT 100
--- NOTE | 2024-08-27 12:11 | ECG_ITS ---
Test Date: 2024-08-27 12:17:05 Measurements Intervals [place] Rate: 119 P: 66 SD: 165 QRS: 46 QRSD: 88 T: 64 QT: 298 QTc: 419 Interpretive Statements SINUS TACHYCARDIA No previous ECG available for comparison Electronically Signed On 08-27-2024 13:04:02 CDT by Massimo Presley M.D.
[2024-08-27 12:15] LABS: BEDSIDEPREGUCG Negative (Negative)
[2024-08-27 12:40] LABS: Basophils Absolute Auto 0.1 K/mm3 (0.0-0.1); Basophils Percent Auto 0.8 % (0.2-1.2); Eosinophils Absolute Auto 0.2 K/mm3 (0-0.3); Eosinophils Percent Auto 1.7 % (0-4.4); Hematocrit 51.8 % (37.0-47.0); Hemoglobin 17.5 g/dL (12.0-15.0); Immature Granulocyte Absolute 0.04 K/mm3 (0.00-0.031); Immature Granulocyte Percent A 0.3 % (0-0.5); Immature Platelet Fraction Pct 4.8 % (0.9-11.2); Lymphocytes Absolute Auto 3.38 K/mm3 (0.9-3.2); Lymphocytes Percent Auto 28.5 % (18.3-44.2); Mean Corpuscular HGB Conc 33.8 g/dl (32-36); Mean Corpuscular Hemoglobin 32.1 pg (26-34); Mean Platelet Volume 10.1 fl (7.4-10.4); Monocytes Absolute Auto 0.7 K/mm3 (0.1-0.6); Monocytes Percent Auto 6.2 % (2.6-8.5); Neutrophils Absolute Auto 7.4 K/mm3 (1.3-6.7); Neutrophils Percent Auto 62.5 % (45.5-73.1); Platelet Count Result 273 k/mm3 (150-375); Red Blood Count 5.45 M/mm3 (4.2-5.4); White Blood Count 11.9 K/mm3 (4.5-10.0)
[2024-08-27 12:43] LABS: Add Urine Microscopic? YES; Appearance Urine Cloudy (Clear); Bacteria Urine 4+ /hpf; Bilirubin Urine Negative (Negative); Blood Urine Negative (Negative); Color Urine Yellow (Yellow); Glucose Urine UA Negative (Negative); Ketones Urine Trace mg/dL (Negative); Leukocyte Esterase Ur Negative LEU/UL (Negative); Nitrate Urine Negative (Negative); Protein Urine Negative (Negative); RBC Urine 0-2 /hpf (0-2); Specific Grav Ur 1.023 (1.001-1.035); Squamous Epithelial Cell Urine Moderate /hpf (Few); Urobilinogen Urine 0.2 mg/dL (<2.0); pH Urine 5.5 (5.0-9.0)
[2024-08-27] MEDS: MORPHINE SULFATE (*CRX) 4 MG/ML INJ IV PUSH (12:54)
[2024-08-27] MEDS: ONDANSETRON INJ 4 MG/2 ML VIAL IV PUSH (12:56)
[2024-08-27 12:57] VITALS: BP 134/102; PULSE 116; RESP 28; O2SAT 100
[2024-08-27] MEDS: SODIUM CHLORIDE 0.9% IV 1,000 ML 150 ML IV CONT (12:57)
[2024-08-27 13:01] LABS: Atypical Lymphocytes Present; Platelet Estimate Adequate (Adequate); Schistocytes None Seen
--- OUTSIDE RECORDS SUMMARY | 2024-08-27 13:18 | XMS_ITS | Clinical Summary ---
Author Organization [facility] Address [address] [place] [id number] Care Team Providers Care Wrecking Car Driver Name Role Phone Cb Perdue MD Primary Care Provider [phone] Allergies No known active allergies Medications cyclobenzaprine 10 MG tablet 12/19/2018 Active CONTOUR NEXT TEST test strip 08/29/2018 Active hydrocodone-acetam inophen 5-325 MG tablet 06/16/2019 Active ibuprofen 400 MG tablet 04/09/2019 Active metFORMIN ER 500 MG 24 hr tablet 05/08/2019 Act opal traMADol 50 MG tablet 03/20/2019 Active Active Problems Problem Noted Date Diagnosed Date Syncope 06/25/2019 Social History Tobacco Use Types Packs/Day Years Used Date Smoking Tobacco: Every Day Cigarettes 0.3 25 Electronic Cigarettes Smokeless Tobacco: Never Tobacco Cessation:Ready to Q uit: Yes Alcohol Use Standard Drinks/Week Comments Yes 0 (1 standard drink = 0.6 oz pur e alcohol) occassionally Comments No Sex and Gender Information Value Date Recorded Sex Assigned at Not on file Legal Sex Female 5:22 PM SUPERVISOR [employer] WORK[employer] Gender Identity Not on file Sexual Orientation Not on file Last Filed Vital Signs Vital Sign Reading Time Taken Comments Blood Pressure 151/86 06/27/2019 9:55 AM SUPERVISOR [employer] Pulse 71 06/27/2019 7:47 AM SUPERVISOR [employer] WORK[employer] Temperature 36.1 C (97 F) 06/27/2019 7:47 AM SUPERVISOR [employer] WORK[employer] Respiratory Rate 16 06/27/2019 7:47 AM SUPERVISOR [employer] WORK[employer] Oxygen Saturation 96% 06/27/2019 3:41 AM SUPERVISOR [employer] WORK[employer] Inhaled Oxygen Concentration - - Weight 113.6 kg (250 lb 7.1 oz) 06/27/2019 3:41 AM SUPERVISOR [employer] WORK[employer] Height 170.2 cm (5' 7 ) 06/25/2019 10:4 7 PM SUPERVISOR [employer] WORK[employer] Body Mass Index 39.22 06/25/2019 10:47 PM SUPERVISOR [employer] WORK[employer] Plan of Treatment Health Maintenance Due Date Last Done Comments Cervical Cancer Screening Pa p Smear (Age 30 to 64) Every 3 Years 1972 Colorectal Cancer Screening Colonoscopy (10 Years) 1972 Annual Physical 02/14/1975 Pneumococcal Vaccine: Pediat rics (0 to 5 Years) and At-Risk Patients (6 to 64 Years) (1 of 2 - PCV) 02/14/1978 Hepatitis C 02/14/1990 DTaP, Tdap and Td Vaccines ( 1 - Tdap) 02/14/1991 Hepatitis B Vaccines (1 of 3 - 19+ 3-dose series) 02/14/1991 Cervical Cancer Screening Pa p with HPV Testing (Age 30 to 64) Every 5 Years 02/14/2002 Cervical Cancer Screening with HPV 02/14/2002 Mammogram Screening 2012 Zoster Vaccines (1 of 2) 02/14/2022 COVID-19 Vaccine (1 - 2023-2 5 season) 2024 Influenza Adult (#1) 2024 Meningococcal B Vaccine Aged Out No l onger eligible based on patient's age to complete this topic Meningococcal Vaccine Aged Out No lan shahab eligible based on patient's age to complete this topic RSV Immunizations Under 20 Months Aged Out No longer eligible based on patient's age to complete this topic Goals Goal Patient Goal Type Associated Problems Recent Progress Patient-Stated? Author [facility] Pamela Alonso RN Insurance [facility] Advance Directives * Full Code (Latest Code Status on File) Date Activated Date Inactivated Comments 06/25/2019 10:58 PM 06/27/2019 1:16 PM Care Teams Wrecking Car Driver Relationship Specialty Start Date End Date Cb Perdue MD [address] [address] PCP - General FAMILY PRACTICE 06/25/19
--- OUTSIDE RECORDS SUMMARY | 2024-08-27 13:18 | XMS_ITS | Clinical Summary ---
Author Organization [facility] Address [address] [place], [address] [address] Phone Care Team Providers Care Pediatric Oncology Nurse Name Role Phone Cb Pedrue MD Primary Care Provider + Allergies No known active allergies Medications ciprofloxacin (CIPRO) 500 MG Tablet TAKE 1 TABLET BY MOUTH TWICE A DAY 0 03/14/2017 Active fluticasone (FLONASE) 50 MCG/ACT Suspension SPRAY 1 SPRAY INTO BOTH NOSTRILS TWICE A DAY 6 02/13/2017 Active HYDROcodone-gali taminophen (NORCO) 5-325 MG Tablet TAKE 1 TO 2 TABLETS BY MOUTH EVERY 4 HOURS NEEDED FOR PAIN 0 03/08/2017 Active metFORMIN (GLUCOPHAGE-XR) 500 MG TABLET SR 24 HR TAKE 2 TABLETS BY MOUTH ONCE DAILY 3 02/16/2017 Active metroNIDAZOLE (FLAGYL) 500 MG Tablet Take 500 mg by mouth 3 times daily. Active montelukast (SINGULAIR) 10 MG Tablet Take 10 mg by mouth every evening. Active pantoprazole (PROTONIX) 40 MG Tablet Delayed Response Take 1 Tab by mouth 2 times daily. 60 Tab 3 03/21/2017 Active Family History Medical History Relation Name Comments Kidney Cancer Father inner ear canc er Breast Cancer Mother Cancer Mother nose Relation Name Status Comments Father Mother Alive Social History Tobacco Use Types Packs/Day Years Used Date Smoking Tobacco: Some Days Cigarettes 0.3 23 Smokeless Tobacco: Never Alcohol Use Standard Drinks/Week Comments No 0 (1 standard drink = 0.6 oz pur e alcohol) Comments No Sex and Gender Information Value Date Recorded Sex Assigned at Not on file Legal Sex Female 8:50 PM CDT Gender Identity Not on file Sexual Orientation Not on file Last Filed Vital Signs Vital Sign Reading Time Taken Comments Blood Pressure 136/89 05/03/2017 10:19 AM SALES ASSOCIATE FISHING Pulse 83 05/03/2017 10:19 AM SALES ASSOCIATE FISHING Temperature 36 C (96.8 F) 05/03/2017 10:19 AM SALES ASSOCIATE FISHING Respiratory Rate 19 05/03/2017 10:19 AM SALES ASSOCIATE FISHING Oxygen Saturation 100% 05/03/2017 10:19 AM SALES ASSOCIATE FISHING Inhaled Oxygen Concentration - - Weight 133.8 kg (295 lb) 05/09/2017 11:00 AM SALES ASSOCIATE FISHING Height 175.3 cm (5' 9 ) 05/09/2017 11:00 AM SALES ASSOCIATE FISHING Body Mass Index 43.56 05/09/2017 11:00 AM SALES ASSOCIATE FISHING Plan of Treatment Health Maintenance Due Date Last Done Comments Hepatitis C Virus (HCV) Screening 1972 TdaP Immunization 1972 Hepatitis B Immunization (1 of 3 - 19+ 3-dose series) 02/14/1991 Pap Smear 02/14/1993 Cervical Cancer Screening (CCS) 02/14/2002 HPV/Cotest 02/14/2002 Mammogram 2012 Cologuard 02/14/2022 Immunochemical Fecal Occult Blood 02/14/2022 Pneumococcal Immunization (5 0+ years) (1 of 1 - PCV) 02/14/2022 Zoster Immunization (1 of 2) 02/14/2022 Influenza Immunization (#1) 2024 SARS-COV-2 Immunization ( - season) 2024 Colonoscopy 05/03/2027 05/03/2017 Colorectal Cancer Screening 05/03/2027 Respiratory Syncytial Virus (RSV) Immunization (Adult) (1 - 1-dose 75+ series) 02/14/2047 05/03/2017 Meningococcal Immunization (ACWY) Aged Out No longer eligible based on patient's age to complete this topic Pneumococcal Immunization Combined Aged Out No longer eligible based on patient's age to complete this topic Rotavirus Immunization Aged Out No lo nger eligible based on patient's age to complete this topic Care Teams Pediatric Oncology Nurse Relationship Specialty Start Date End Date Cb Perdue MD [address] [phone] PCP - General Family Medicine 03/21/17
--- OUTSIDE RECORDS SUMMARY | 2024-08-27 13:18 | XMS_ITS | Clinical Summary ---
Author Organization [facility] Address [address] [place] [address] Care Team Providers Care Produce Wrapper Name Role Phone Cb Perdue MD Primary Care Prov ider Allergies No known active allergies Medications metFORMIN XR (GLUCOPHAGE XR) 500 mg 24 hr tablet Take 1,000 mg by mouth daily 5 12/10/2018 Active HYDROcodone-acet aminophen (NORCO) 5-325 mg per tabletIndication s:Pain Take 1 tablet by mouth every 6 (six) hours as needed Active cyclobenzaprine (FLEXERIL) 5 mg tablet Take 5 mg by mouth 3 (three) times a day as needed for muscle spasms Active orlistat (ARDEN) 60 mg capsuleIndicatio ns:Weight Loss Management for Patient with BMI >=27 Take 60 mg by mouth 3 (three) times a day with meals Active Active Problems No known active problems Surgical History Surgery Date Site/Laterality Comments BACK SURGERY KNEE SURGERY ANKLE SURGERY ABLATION Uterus Medical History Medical History Date Comments Diabetes mellitus (HCC) Obesity COPD (chronic obstructive pulmonary disease) (HC C) Family History Medical History Relation Name Comments Cancer Father Kidney disease Father Arthritis Mother Heart disease Mother Relation Name Status Comments Father Mother Social History Tobacco Use Types Packs/Day Years Used Date Smoking Tobacco: Every Day Cigarettes Smokeless Tobacco: Never Alcohol Use Standard Drinks/Week Comments Yes 0 (1 standard drink = 0.6 oz pur e alcohol) Rare AUDIT-C Answer Date Recorded Q1: How often do you have a drink containing alc ohol? 2-4 times a month 02/25/2021 Q2: How many drinks containi ng alcohol do you have on a typical day when you are drinking? 1 or 2 02/25/2021 Q3: How often do you have si x or more drinks on one occasion? 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 Not on file Not on file Obstetrics History Last Filed Vital Signs Vital Sign Reading Time Taken Comments Blood Pressure 154/83 02/25/2021 10:50 AM CDT Pulse 94 02/25/2021 11:35 AM CDT Temperature 36.1 C (97 F) 02/25/2021 10:25 AM CDT Respiratory Rate 18 02/25/2021 11:3 0 AM CDT Oxygen Saturation 100% 02/25/2021 11: 35 AM CDT Inhaled Oxygen Concentration - - Weight 136.3 kg (300 lb 7.8 oz) 02/25/2021 6:45 AM CDT Height 170.2 cm (5' 7 ) 02/25/2021 6:45 AM CDT Body Mass Index 47.06 02/25/2021 6:45 AM CDT Plan of Treatment Not on file Insurance [facility] [place] [address] [place] Care Teams Produce Wrapper Relationship Specialty Start Date End Date Cb Perdue MD PCP - General Family Medicine 01/14/19
--- OUTSIDE RECORDS SUMMARY | 2024-08-27 13:18 | XMS_ITS | Referral Summary ---
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
[2024-08-27 14:00] LABS: Alanine Aminotransferase 47 U/L (6-35); Albumin Level 4.8 g/dL (3.5-5.1); Alkaline Phosphatase 115 U/L (38-126); Anion Gap 14 mmol/L (4-12); Aspartate Amino Transferase 31 U/L (14-36); Bilirubin,Total 0.5 mg/dL (0.2-1.3); Blood Urea Nitrogen 17 mg/dL (7-17); Calcium 10.3 mg/dL (8.4-10.2); Carbon Dioxide 25 mmol/L (22-30); Chloride 99 mmol/L (98-107); Estimated CRCL calculation 101 ml/min; Estimated Glomerular Filt Rate > 60; Glucose 186 mg/dL (65-110); Lipase 89 U/L (23-300); Potassium 4.7 mmol/L (3.4-5.0); Sodium 138 mmol/L (137-145)
--- OUTSIDE RECORDS SUMMARY | 2024-08-27 14:23 | XMS_ITS | Referral Summary ---
Author Organization 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
--- OUTSIDE RECORDS SUMMARY | 2024-08-27 14:23 | XMS_ITS | Clinical Summary ---
Author Organization [facility] Address [address], [address] [address] Phone Care Team Providers Care Block Cleaner Name Role Phone Cb Perdue MD Primary Care Provider + Allergies No [...] Comments Blood Pressure 136/89 05/03/2017 10:19 AM LASER SPECIALIST Pulse 83 05/03/2017 10:19 AM LASER SPECIALIST Temperature 36 C (96.8 F) 05/03/2017 10:19 AM LASER SPECIALIST Respiratory Rate 19 05/03/2017 10:19 AM LASER SPECIALIST Oxygen Saturation 100% 05/03/2017 10:19 AM LASER SPECIALIST Inhaled Oxygen Concentration - - Weight 133.8 kg (295 lb) 05/09/2017 11:00 AM LASER SPECIALIST Height 175.3 cm (5' 9 ) 05/09/2017 11:00 AM LASER SPECIALIST Body Mass Index 43.56 05/09/2017 11:00 AM LASER SPECIALIST Plan of Treatment Health Maintenance Due Date [...] age to complete this topic Care Teams Block Cleaner Relationship Specialty Start Date End Date Cb Perdue MD [address] [phone] PCP - General Family Medicine 03/21/17
--- OUTSIDE RECORDS SUMMARY | 2024-08-27 14:23 | XMS_ITS | Clinical Summary ---
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
--- NOTE | 2024-08-27 14:34 | ED_ITS ---
HPI - Abdominal Pain General Chief Complaint: Abdominal Pain Stated Complaint: Abd Pain, Nauseated, Burping rotten eggs Time Seen by Provider: 08/27/24 12:38 Source: patient Mode of arrival: ambulatory Limitations: no limitations History of Present Illness HPI narrative: 54-year-old with a history of hypertension, diabetes here with the complaints of upper abdominal pain which started last night associated with some nausea and vomiting. She denies any fever or chills. Pertinent past history: none Onset (ago): day(s) (1) Pain Consistency: constant Location: diffuse Severity: moderate Quality: aching Radiation: none Exacerbating factors: nothing Relieving factors: nothing Associated symptoms: denies other symptoms Related Data Allergies Allergy/AdvReac Type Severity Reaction Status Date / Time No Known Allergies Allergy Unknown Verified 08/27/24 12:03 Review of Systems 2 Review of Systems: All systems reviewed & are unremarkable except as noted in HPI and below Constitutional: Constitutional: Reports no additional constitutional complaints Eyes: Eyes: Reports no additional eye complaints ENT: Reports system reviewed and no additional complaints, except as documented Cardiovascular: Cardiovascular: Reports no additional cardiovascular complaints Respiratory: Respiratory: Reports no additional respiratory complaints Gastrointestinal: Gastrointestinal: Reports as per HPI Musculoskeletal: Musculoskeletal: Reports no additional musculoskeletal complaints Integumentary/Breasts: Skin/Breast: Reports system reviewed and no additional complaints, except as docu PMFSH Past Medical History Medical History Radiculopathy, cervical region Degenerative disc disease Acute exacerbation of chronic obstructive pulmonary disease Anxiety Depression Bowel perforation Patient had microperforation diverticulitis in 2017 and was treated conservatively without surgery Bowel obstruction Diverticulitis Pneumonia Emphysema of lung Surgical History Surgical History History of endometrial ablation History of ankle surgery right ankle Hx of knee surgery left knee Hx of spinal surgery L3, L4 Hx of tubal ligation Family History Family History Mother Alzheimer's disease Cerebrovascular accident Hypertension Sibling Diabetes mellitus Type 2 Asthma Hypertension Father Renal carcinoma Colon polyp Sibling Diabetes mellitus Hypertension Other Depression Social History Social History Social History: Patient reports she has one child, a daughter. She has 1 brother and 2 sisters. She had another brother who is . Smoking packs per day: 0.5 Smoking cigarettes per day: 10.0 Years smoked: 25 Smoking pack-years: 12.50 Smoking status: Current every day smoker Tobacco type: cigarettes Second hand tobacco smoke exposure: No Alcohol intake: never Alcohol use details: Reports she occasionally drinks, goes out about once every 3 months and has a few drinks with friends Substance use: never Substance use type: does not use Do You Feel Safe in your Home?: Yes Lack of Transportation: No Lack of Food: Sometimes True Current Housing: I Have Housing Concerned About Future Housing: No Difficulty Paying Gas/Electric Bills: No Difficulty Paying for Meds: No Currently Unemployed: YES Education: Trade/Vocational Certificate Difficulty w/ Childcare or Family Care: No Living arrangements: with family Additional living arrangements comments: Resides with and her mother who has Alzheimer's. At present she is caring for both of them. Her just had recent C-spine surgery. 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 HEAD: Normocephalic, atraumatic. EYES: PERRLA and EOMI. ENT: Nares clear, no rhinorrhea or epistaxis. Mucous membranes moist. NECK: Supple. CHEST: Clear to auscultation. No respiratory distress. HEART: Regular rate and rhythm. No murmur heard. Normal peripheral pulses. ABDOMEN: Soft, diffuse tenderness more so in the upper abdomen, nondistended, normal active bowel sounds. EXTREMITIES: Normal range of motion. No edema. SKIN: Warm, dry, no rash. NEURO: No focal deficits. Alert and oriented x3. PSYCH: Normal mood and affect. Course Course Emergency Course: Patient feeling much better. Informed about the lab work, CT findings cause of her pain is unknown at this time. Advised her to take pain medication as prescribed, follow-up with her primary doctor Vital Signs Vital signs: Vital Signs Temperature 36.9 C 08/27/24 12:04 Pulse Rate 130 H 08/27/24 12:04 Respiratory Rate 20 03/26/25 12:04 Blood Pressure 151/106 H 08/27/24 12:04 Pulse Oximetry 100 08/27/24 12:04 Oxygen Delivery Room Air 08/27/24 12:04 Temperature 36.9 C 08/27/24 12:04 Pulse Rate 116 H 08/27/24 12:57 Respiratory Rate 28 H 08/27/24 12:57 Blood Pressure 134/102 H 08/27/24 12:57 Pulse Oximetry 100 08/27/24 12:57 Oxygen Delivery Room Air 08/27/24 12:04 MDM - Abdominal Pain Differential Diagnosis Differential diagnosis: Likely abdominal pain, pancreatitis and small bowel obstruction Medical Records Attestation: I reviewed the patient's medical records. Lab Data Attestation: I reviewed the patient's lab results. 08/27/24 12:24 08/27/24 12:24 Labs: Lab Results 08/27/24 08/27/24 Range/Units 12:10 12:24 WBC 11.9 H (4.5-10.0) K/mm3 RBC 5.45 H (4.2-5.4) M/mm3 Hgb 17.5 H D (12.0-15.0) g/dL Hct 51.8 H (37.0-47.0) % MCV 95.0 (80-100) fl MCH 32.1 (26-34) pg MCHC 33.8 (32-36) g/dl RDW 13.0 (11.5-14.5) % Plt Count 273 (150-375) k/mm3 MPV 10.1 (7.4-10.4) fl Immature Gran % (Auto) 0.3 (0-0.5) % Neut % (Auto) 62.5 (45.5-73.1) % Lymph % (Auto) 28.5 (18.3-44.2) % [place] % (Auto) 6.2 (2.6-8.5) % Eos % (Auto) 1.7 (0-4.4) % Baso % (Auto) 0.8 (0.2-1.2) % Lymph # (Auto) 3.38 H (0.9-3.2) K/mm3 [place] # (Auto) 0.7 H (0.1-0.6) K/mm3 Eos # (Auto) 0.2 (0-0.3) K/mm3 Baso # (Auto) 0.1 (0.0-0.1) K/mm3 Abs Immat Gran (auto) 0.04 H (0.00-0.031) K/mm3 Absolute Neuts (auto) 7.4 H (1.3-6.7) K/mm3 Absolute Nucleated RBC 0.000 (0.0-0.012) K/mm3 Band Neutrophils % Not Reportable Nucleated RBC % 0.0 (0.0-0.2) % Atypical Lymphocytes Present Platelet Estimate Adequate (Adequate) % Immature Plt Fraction 4.8 (0.9-11.2) % Schistocytes None seen Sodium 138 (137-145) mmol/L Potassium 4.7 (3.4-5.0) mmol/L Chloride 99 (98-107) mmol/L Carbon Dioxide 25 (22-30) mmol/L Anion Gap 14 H (4-12) mmol/L BUN 17 (7-17) mg/dL Creatinine 0.83 (0.7-1.0) mg/dL Estim Creat Clear Calc 101 ml/min Estimated GFR > 60 (59 - ) Glucose 186 H (65-110) mg/dL Calcium 10.3 H (8.4-10.2) mg/dL Total Bilirubin 0.5 (0.2-1.3) mg/dL AST 31 (14-36) U/L ALT 47 H (6-35) U/L Alkaline Phosphatase 115 (38-126) U/L Total Protein 8.0 (6.3-8.2) g/dL Albumin 4.8 (3.5-5.1) g/dL Lipase 89 (23-300) U/L Urine Color Yellow (Yellow) Urine Appearance Cloudy H (Clear) Urine pH 5.5 (5.0-9.0) Ur Specific [place] 1.023 (1.001-1.035) Urine Protein Negative (Negative) mg/dL Urine Glucose (UA) Negative (Negative) mg/dL Urine Ketones Trace H (Negative) mg/dL Ur Blood (Man) Negative (Negative) Urine Nitrate Negative (Negative) Urine Bilirubin Negative (Negative) Urine Urobilinogen 0.2 (<2.0) mg/dL Leukocyte Esterase Rfl Negative (Negative) AYESHA/UL Urine RBC 0-2 (0-2) /hpf Urine WBC 6-10 H (0-3) /hpf Ur Squamous Epith Cells Moderate (Few) /hpf Urine Bacteria 4+ H /hpf Urine Casts 3-5 POC Urine HCG, Qual Negative (Negative) Imaging Data Radiologist's impression: ITS Impressions Abdomen/Pelvis CT 08/27/24 14:18 IMPRESSION: 1. Dilated small bowel with air-fluid levels with transition to normal caliber in the ileum. Findings may represent partial small bowel obstruction and ileus. ECG Data EKG #1: ECG completion date: 08/27/24 ECG completion time: 12:17 Ischemic changes: poor r wave progression tachycardia (117), no ectopy, no ST changes and no acute changes Discharge Plan Discharge Clinical Impression: Abdominal pain Qualifiers: Abdominal location: upper abdomen, unspecified Qualified Code(s): R10.10 - Upper abdominal pain, unspecified Patient Disposition: Home, Self-Care Condition: Stable Instructions: Abdominal Pain (ED) Patient Language: Latvian Prescriptions: New ondansetron 4 mg tablet,disintegrating 4 mg PO Q6-8H PRN (Reason: nausea and vomiting) Qty: 14 0RF dicyclomine 20 mg tablet 20 mg PO QID PRN (Reason: abdominal pain) Qty: 30 0RF No Action albuterol sulfate 90 mcg/actuation HFA aerosol inhaler 2 inh inhalation Q4H PRN (Reason: shortness of breath or wheezing) Qty: 8.5 4RF cyclobenzaprine 10 mg tablet 10 mg PO TID PRN (Reason: muscle spasm) Qty: 30 0RF furosemide 40 mg tablet 40 mg PO QAM Qty: 30 4RF (DME) BD Sharps Dry Roller Misc See Rx Instructions .Route Qty: 1 0RF Rx Instructions: As directed insulin glargine [Lantus Solostar U-100 Insulin] 100 unit/mL (3 mL) insulin pen 55 unit subcut DAILY Qty: 18 5RF (DME) pen needle, diabetic [TRUEplus Pen Needle] 32 gauge x 5/32 needle See Rx Instructions .Route Qty: 100 2RF Rx Instructions: Use one daily to inject insulin (DME) blood-glucose meter Misc See Rx Instructions .Route Qty: 1 0RF Rx Instructions: use to test blood sugars once daily (DME) OneTouch Verio test strips Strip See Rx Instructions .Route Qty: 100 2RF Rx Instructions: use to test blood sugars once daily hydrocodone-acetaminophen 7.5-325 mg tablet 1 tablet PO Q6H PRN (Reason: pain) Qty: 90 0RF Ozempic 1 mg/dose (4 mg/3 mL) pen injector 1 mg subcut WEEKLY Qty: 3 5RF Follow-up/Referrals: Cb Perdue MD [Primary Care Provider] - Time of Disposition: 14:41
[2024-08-27 15:12] VITALS: BP 146/93; PULSE 100; RESP 19; TEMP 36.8; O2SAT 94
== END 2024-08-27 15:13 | disposition home or self-care (01) ==
PROVIDERS: Student in an Organized Health Care Education/Training Program; Emergency Provider Family Medicine; PCP Family Medicine Adolescent Medicine
DX: R10.10 Upper abdominal pain, unspecified (principal); I10 Essential (primary) hypertension; E11.9 Type 2 diabetes mellitus without complications; J43.9 Emphysema, unspecified; F17.210 Nicotine dependence, cigarettes, uncomplicated; Z87.01 Personal history of pneumonia (recurrent); Z79.4 Long term (current) use of insulin; Z79.85 Long-term (current) use of injectable non-insulin antidiabetic drugs; R00.0 Tachycardia, unspecified
CPT/HCPCS: 36415; 74177; 80053; 81001; 81025; 83690; 85025; 85055; 93005; 96361; 96374; 96375; 99284; J2270; J2405; J7030; Q9967

== ENCOUNTER 2024-09-08 04:20 | Observation (INO) | payer OTHER, SELFPAY ==
--- NOTE | ~2024-09-08 | XR_ITS ---
EXAMINATION: XR_[id number]_CR DATE: 09/08/2024 13:56 INDICATION: Small bowel obstruction. Unable to place nasogastric tube on the floor. TECHNIQUE: Fluoroscopy was utilized during nasogastric tube placement. The patient also had one swall ow of water-soluble contrast dated visualization of the cervical esophagus again tube placement. A to pete of 153 fluoroscopic images and one overhead radiograph of the abdomen were obtained. The amount o f fluoroscopy time used during this procedure was 1.6 minutes. Total DAP was 29.513 Gycm^2. FINDINGS: Nasogastric tube extends below the gastroesophageal junction with distal tip and proximal side port i n the body of the stomach. Small amount of contrast in the stomach and proximal duodenum. Multiple ga s-filled loops of small bowel and colon in the visualized abdomen to be seen with small bowel obstruc tion or ileus. IMPRESSION: 1. Successful fluoroscopic guided nasogastric tube placement with distal tip in proximal side port in the body the stomach. 2. Extensive gas-filled small bowel which could be due to ileus or obstruction. Reviewed, dictated and finalized at location A.
--- NOTE | ~2024-09-08 | CT_ITS ---
CT of the Abdomen and Pelvis: Indication: Bowel obstruction versus ileus Technique: 2.5 mm axial scans were obtained through the abdomen and pelvis following intravenous adm inistration of 100 cc of Omnipaque 350. Dose reduction technique was used on this scan by utilizing a utomated exposure control and iterative reconstruction technique. The dose-length product (DLP) was 1 692.76 mGy-cm. COMPARISON: 08/27/2024 Findings: Scans through the lung bases are unremarkable. There is diffuse fatty infiltration of the liver. The spleen, pancreas, gallbladder, adrenals and kid neys are within normal limits. No evidence of aortic aneurysm. No lymphadenopathy. There are multiple mildly dilated small bowel loops with probable transition point in the right mid a bdomen. Distal small bowel appears to be decompressed. Sigmoid diverticulosis present. Images through the pelvis were performed. Urinary bladder unremarkable. No adnexal mass seen. Small a mount of abdominopelvic ascites present. Impression: Probable small bowel obstruction, transition point in the relatively distal small bowel. Small amount of abdominopelvic ascites. Diffuse hepatic steatosis. Reviewed, dictated and finalized at [facility]. Impression: Probable small bowel obstruction, transition point in the relatively distal sma ll bowel. Small amount of abdominopelvic ascites. Diffuse hepatic steatosis.
--- NOTE | ~2024-09-08 | XR_ITS ---
EXAMINATION: XR sm bowel follow through WS DATE: 09/09/2024 13:41 INDICATION: No bowel obstruction TECHNIQUE: Battery Charger Conveyor Line radiograph(s) of the abdomen was/were obtained. The nasogastric tube was noted to be withdrawn into the mid esophagus. Utilizing fluoroscopic observation the nasogastric tube was advanc ed with the distal tip in proximal side port within the body the stomach and the nasogastric tube paramjit ttached to the nares with tape. Water-soluble oral contrast was then administered, and sequential rad iographs of the abdomen were obtained for 1.5 hours at which time the patient refused additional imag ing. A single fluoroscopic image and 9 overhead radiographs were recorded. Fluoroscopy exposure time was 0.1 minutes. Total DAP was 190.547 Gycm^2. COMPARISON: None. FINDINGS: Nasogastric tube in the mid esophagus on the initial document control supervisor radiograph which was subsequently advanced with distal tip in proximal side port in the body the stomach. There are multiple dilated gas-filled loops of small bowel in the abdomen consistent with persistent small bowel obstruction versus ileus. Contrast advanced through mildly dilated loops of small bowel. At the 1 1/2 hour time point there is still some nonopacified gas-filled loops of dilated small bowel in the right abdomen. IMPRESSION: 1. Persistent mildly dilated loops of small bowel consistent with small bowel obstruction versus ileu s. Transit time to the colon was indeterminate but greater than 1.5 hours at which time at patient re quest the study was terminated. 2. Nasogastric tube initially in the midesophagus, subsequently repositioned and appropriate position with the distal tip and proximal side port in the body the stomach. Reviewed, dictated and finalized at location B. IMPRESSION: 1. Persistent mildly dilated loops of small bowel consistent with small bowel o bstruction versus ileus. Transit time to the colon was indeterminate but greate r than 1.5 hours at which time at patient request the study was terminated. 2. Nasogastric tube initially in the midesophagus, subsequently repositioned an d appropriate position with the distal tip and proximal side port in the body t he stomach.
[2024-09-08 04:23] VITALS: BP 148/99; PULSE 128; RESP 22; TEMP 36.7; O2SAT 99
--- OUTSIDE RECORDS SUMMARY | 2024-09-08 04:23 | XMS_ITS | Clinical Summary ---
Author Organization [facility] Address [address], [address] [address] Phone Care Team Providers Care Printer Machine Name Role Phone Cb Perdue MD Primary [...] Comments Blood Pressure 136/89 05/03/2017 10:19 AM SKEWER UP Pulse 83 05/03/2017 10:19 AM SKEWER UP Temperature 36 C (96.8 F) 05/03/2017 10:19 AM SKEWER UP Respiratory Rate 19 05/03/2017 10:19 AM SKEWER UP Oxygen Saturation 100% 05/03/2017 10:19 AM SKEWER UP Inhaled Oxygen Concentration - - Weight 133.8 kg (295 lb) 05/09/2017 11:00 AM SKEWER UP Height 175.3 cm (5' 9 ) 05/09/2017 11:00 AM SKEWER UP Body Mass Index 43.56 05/09/2017 11:00 AM SKEWER UP Plan of Treatment Health Maintenance Due Date [...] age to complete this topic Care Teams Printer Machine Relationship Specialty Start Date End Date Cb Perdue MD [address] [id number] PCP - General Family Medicine 03/21/17
--- OUTSIDE RECORDS SUMMARY | 2024-09-08 04:23 | XMS_ITS | Clinical Summary ---
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
--- OUTSIDE RECORDS SUMMARY | 2024-09-08 04:23 | XMS_ITS | Clinical Summary ---
Author Organization [facility] Address [address] [place] [address] Care Team Providers Care Instrument Technician Helper Name Role Phone Cb Perdue MD Primary Care Provider [phone]- [phone] Allergies No known active allergies Medications cyclobenzaprine [...] on file Legal Sex Female 5:22 PM SHALE PLANER OPERATOR Gender Identity Not on file Sexual Orientation Not on file Last Filed Vital Signs Vital Sign Reading Time Taken Comments Blood Pressure 151/86 06/27/2019 9:55 AM SHALE PLANER OPERATOR Pulse 71 06/27/2019 7:47 AM SHALE PLANER OPERATOR Temperature 36.1 C (97 F) 06/27/2019 7:47 AM SHALE PLANER OPERATOR Respiratory Rate 16 06/27/2019 7:47 AM SHALE PLANER OPERATOR Oxygen Saturation 96% 06/27/2019 3:41 AM SHALE PLANER OPERATOR Inhaled Oxygen Concentration - - Weight 113.6 kg (250 lb 7.1 oz) 06/27/2019 3:41 AM SHALE PLANER OPERATOR Height 170.2 cm (5' 7 ) 06/25/2019 10:4 7 PM SHALE PLANER OPERATOR Body Mass Index 39.22 06/25/2019 10:47 PM SHALE PLANER OPERATOR Plan of Treatment Health Maintenance Due Date [...] Vaccine (1 - 2023-2 5 season) 2024 Meningococcal B Vaccine Aged Out No [...] Recent Progress Patient-Stated? Author [facility] No Pamela Kirk, RN Insurance [facility] Advance Directives * Full Code (Latest Code Status on File) Date Activated Date Inactivated Comments 06/25/2019 10:58 PM 06/27/2019 1:16 PM Care Teams Instrument Technician Helper Relationship Specialty Start Date End Date Cb Perdue MD [address] [address] PCP - General FAMILY PRACTICE 06/25/19
--- OUTSIDE RECORDS SUMMARY | 2024-09-08 04:23 | XMS_ITS | Continuity of Care Document ---
Author Organization [facility] Address [address] [place] [address] [place] [address] Phone Care Team Providers Care Brewery Pumper Name Role Phone Wili PT,MPT,ATC, Harvinder Unavailable Unavai lable Procedures Procedure Date THERAPEUTIC EXERCISES NEUROMUSCULAR RE-ED HOT/COLD PACK ELECTRIC STIMULATION UNATT THERAPEUTIC EXERCISES NEUROMUSCULAR RE-ED HOT/COLD PACK ELECTRIC STIMULATION UNATT THERAPEUTIC EXERCISES NEUROMUSCULAR RE-ED HOT/COLD PACK ELECTRIC STIMULATION UNATT PT EVALUATION THERAPEUTIC EXERCISES HOT/COLD PACK ELECTRIC STIMULATION UNATT OT RE-EVALUATION THERAPEUTIC EXERCISES NEUROMUSCULAR RE-ED FUNC ACTIVITY HOT/COLD PACK ELECTRIC STIMULATION UNATT THERAPEUTIC EXERCISES NEUROMUSCULAR RE-ED MANUAL THERAPY FUNC ACTIVITY HOT/COLD PACK OT RE-EVALUATION THERAPEUTIC EXERCISES NEUROMUSCULAR RE-ED MANUAL THERAPY FUNC ACTIVITY HOT/COLD PACK THERAPEUTIC EXERCISES NEUROMUSCULAR RE-ED MANUAL THERAPY FUNC ACTIVITY HOT/COLD PACK ELECTRIC STIMULATION UNATT THERAPEUTIC EXERCISES MANUAL THERAPY FUNC ACTIVITY HOT/COLD PACK ELECTRIC STIMULATION UNATT OT EVALUATION THERAPEUTIC EXERCISES MANUAL THERAPY FUNC ACTIVITY HOT/COLD PACK Advance Directives Directive Yes / No Effective Date File Name No Information Encounters Encounter Description Practice Location Reason(s) For Visit Diagnoses Date Provider Providers Copied on Encounter [facility] [address] [place] [address], [place], [id number], tel:[phone] [place] No Information Sep-1 6- 5 [facility] [place] [place] [address] [place] [address], [place], [id number], tel:[phone] [place] No Information Sep-1 5 [facility] [place]. Referring Provider: Oscar Robles [address] [place] [address], [facility]. tel:[phone] [address], [place], [id number], tel:[phone] [place] No Information Sep-0 3-201 5 Robbie Maikel. [address] [facility], [address], [facility], . tel:[phone] Referring Provider: Oscar Robles [facility] [address], [place], [facility]. tel:[phone], [place], [place], [id number], tel:[phone] [place] No Information Sep-0 2-201 5 Robbie Maikel. [address] [facility], [address], [place], [facility], . tel:[phone] Referring Provider: Oscar Robles [address] [place] [address] [address], [place], [facility]. tel:[phone] [facility] [address], [place], [place], [id number], [place] tel:[phone] [place] Pain in joint involving shoulder region 5 Robbie Maikel. [address] [place] [address], [address], [place], [facility], . tel:[phone] Referring Provider: Oscar Robles , [address], [place], [address]. tel:[phone] [facility] [address], [place], [place], [id number], [place] tel:[phone] [place] No Information 2-201 4 Nancy Hernández. [address] [place] [address], [address], [place], [facility], . tel:[phone] Referring Provider: Edmundo Mcfarland, [address] [place] [address], [address]. tel:[phone] [facility] [address] [place], [place] [address], [place], [place], [id number], [place] tel:[phone] [place] No Information 0-201 4 Nancy Hernández. [address] [place] [address], [address], [place], [facility], . tel:[phone] Referring Provider: Edmundo Mcfarland, [address] [place], [address]. tel:[phone] [facility] [address] [facility] [address], [id number], [place] tel:[phone] [place] No Information 5-201 4 Nancy Hernández. [address] [place] [address], [address], [place], [facility], . tel:[phone] Referring Provider: Edmundo Mcfarland, [address] [place], [address]. tel:[phone] [facility] [facility] [address], [place], [id number], tel:[phone] [place] No Information 3-201 4 Nancy Hernández. [address] [facility], [address], [facility], . tel:[phone] Referring Provider: Edmundo Mcfarland, [address] [place], [address]. tel:[phone], [id number], tel:[phone] [place] No Information 0-201 4 Nancy Hernández. [address] [facility], [address], [address], . tel:[phone] Referring Provider: Edmundo Mcfarland, [address] [place], [address]. tel:[phone], [id number], tel:[phone] [place] Pain in joint involving hand 8-201 4 Nancy Hernández. [address] [facility], [address], [address], . tel:[phone] Referring Provider: Edmundo Mcfaralnd, [address] [place], [address]. tel:[phone] Family History Family Member Type Diagnosis Age At Onset No Information Payers Payer name Insurance type Covered republican ID Authorreinier saravia(s) One Call - Align [facility] [id number] Social History Type Description Quantity Date Captured Comments Sex Female Smoking Status No Information Chief Complaint And Reason For Visit No Information Reason For Referral Reason For Referral No Information History Of Present Illness Encounter Date Complaint History Of Prese nt Illness No Information Functional Status Date Functional Assessmen t No Information Instructions Date Instruction Additional Infor mation No Information Assessments Type Assessment Date No Information Patient Care Teams Name Effective Dates (start - stop) Status Members No Information
--- OUTSIDE RECORDS SUMMARY | 2024-09-08 04:23 | XMS_ITS | Referral Summary ---
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
--- OUTSIDE RECORDS SUMMARY | 2024-09-08 05:12 | XMS_ITS | Clinical Summary ---
Author Organization [facility] Address [address], [address] [address] Phone Care Team Providers Care Security Officers And Guards Name Role Phone Cb Perdue MD Primary [...] Comments Blood Pressure 136/89 05/03/2017 10:19 AM HIDES SOAKER Pulse 83 05/03/2017 10:19 AM HIDES SOAKER Temperature 36 C (96.8 F) 05/03/2017 10:19 AM HIDES SOAKER Respiratory Rate 19 05/03/2017 10:19 AM HIDES SOAKER Oxygen Saturation 100% 05/03/2017 10:19 AM HIDES SOAKER Inhaled Oxygen Concentration - - Weight 133.8 kg (295 lb) 05/09/2017 11:00 AM HIDES SOAKER Height 175.3 cm (5' 9 ) 05/09/2017 11:00 AM HIDES SOAKER Body Mass Index 43.56 05/09/2017 11:00 AM HIDES SOAKER Plan of Treatment Health Maintenance Due Date [...] age to complete this topic Care Teams Security Officers And Guards Relationship Specialty Start Date End Date Cb Perdue MD [address] [id number] PCP - General Family Medicine 03/21/17
--- OUTSIDE RECORDS SUMMARY | 2024-09-08 05:12 | XMS_ITS | Referral Summary ---
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
--- OUTSIDE RECORDS SUMMARY | 2024-09-08 05:12 | XMS_ITS | Clinical Summary ---
Author Organization 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 Gender Identity Not on file Sexual Orientation Not on file Last Filed Vital Signs Vital Sign Reading Time Taken Comments Blood Pressure 151/86 06/27/2019 9:55 AM TEXTILE DESIGNER Pulse 71 06/27/2019 7:47 AM TEXTILE DESIGNER Temperature 36.1 C (97 F) 06/27/2019 7:47 AM TEXTILE DESIGNER Respiratory Rate 16 06/27/2019 7:47 AM TEXTILE DESIGNER Oxygen Saturation 96% 06/27/2019 3:41 AM TEXTILE DESIGNER Inhaled Oxygen Concentration - - Weight 113.6 kg (250 lb 7.1 oz) 06/27/2019 3:41 AM TEXTILE DESIGNER Height 170.2 cm (5' 7 ) 06/25/2019 10:4 7 PM TEXTILE DESIGNER Body Mass Index 39.22 06/25/2019 10:47 PM TEXTILE DESIGNER Plan of Treatment Health Maintenance Due Date [...] Progress Patient-Stated? Author [facility] No Pamela Kirk, RN Insurance [facility] Advance Directives * Full Code (Latest Code Status on File) Date Activated Date Inactivated Comments 06/25/2019 10:58 PM 06/27/2019 1:16 PM Care Teams Senior Market Research Analyst Relationship Specialty Start Date End Date Cb Perdue MD [address] [address] PCP - General FAMILY PRACTICE 06/25/19
--- OUTSIDE RECORDS SUMMARY | 2024-09-08 05:13 | XMS_ITS | Continuity of Care Document ---
Author Organization [facility] Address [address] [place] [address] [place] [address] Phone Care Team Providers Care Multicultural Services Librarian Name Role Phone Wili PT,MPT,ATC, Harvinder Unavailable [...] Diagnoses Date Provider Providers Copied on Encounter [facility] [address] [place] [address], [place], [id number], tel:[phone] [place] No Information Sep-1 6- 5 [facility] [place] [place]. [facility] [address] [place] [address], [place], [id number], tel:[phone] [place] No Information Sep-1 5 [facility] [place] [place]. Referring Provider: Oscar Robles [address] [place] [address], [facility]. tel:[phone], [place], [id number], tel:[phone] [place] No Information Sep-0 3-201 5 Robbie Maikel. [address] [facility], [address], [facility], . tel:[phone] Referring Provider: Oscar Robles Mich[facility] [address], [place], [facility]. tel:[phone], [place], [place], [id number], tel:[phone] [place] No Information Sep-0 2-201 5 Robbie Maikel. [address] [facility], [address], [place], [facility], . tel:[phone] Referring Provider: Oscar Robles [address] [place] [address] [address], [place], [facility]. tel:[phone] [facility] [address], [place], [place], [id number], [place] tel:[phone] [place] Pain in joint involving shoulder region 5 Robbie Maikel. [address] [place] [address], [address], [place], [facility], . tel:[phone] Referring Provider: Oscar Robles , [address], [place], [address]. tel:[phone] [facility] [address], [place], [place], [id number], [place] tel:[phone] [place] No Information 2-201 4 Nancy Hernández. [address] [place] [address], [address], [place], [facility], . tel:[phone] Referring Provider: Edmundo Mcfarland, [address] [place] [address], [address]. tel:[phone] [facility] [address] [place], [place] [address], [place], [place], [id number], [place] tel:[phone] [place] No Information 0-201 4 Nancy Hernández. [address] [place] [address], [address], [place], [facility], . tel:[phone] Referring Provider: Edmundo Mcfarland, [address] [place], [address]. tel:[phone] [facility] [address] [facility] [address], [place], [id number], [place] tel:[phone] [place] No Information 5-201 4 Nancy Hernández. [address] [place] [address], [address], [place], [facility], . tel:[phone] Referring Provider: Edmundo Mcfarland, [address] [place], [address]. tel:[phone] [facility] [facility] [address], [place], [id number], tel:[phone] [place] No Information 3-201 4 Nancy Hernández. [address] [facility], [address], [facility], . tel:[phone] Referring Provider: Edmundo Mcfarland, [address] [place], [address]. tel:[phone], [id number], tel:[phone] [place] No Information 0-201 4 Nancy Hernández. [address] [facility], [address], [address], . tel:[phone] Referring Provider: Edmundo Mcfarland, [address] [place], [address]. tel:[phone], [id number], tel:[phone] [place] Pain in joint involving hand 8-201 4 Nancy Hernández. [address] [facility], [address], [address], . tel:[phone] Referring Provider: Edmundo Mcfarland, [address] [place], [address]. tel:[phone] Family History Family Member Type Diagnosis Age At Onset No Information Payers Payer name Insurance type Covered democrat ID Authorreinier saravia(s) One Call - Align [facility] [id number] Social History Type Description Quantity Date Captured [...]
--- OUTSIDE RECORDS SUMMARY | 2024-09-08 05:13 | XMS_ITS | Clinical Summary ---
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
--- NOTE | 2024-09-08 05:16 | ED_ITS ---
HPI - Abdominal Pain General Chief Complaint: Abdominal Pain Stated Complaint: ABD pain, left sided, N/V Time Seen by Provider: 09/08/24 05:07 Source: patient Mode of arrival: ambulatory Limitations: no limitations History of Present Illness HPI narrative: Patient presents with generalized abdominal pain although the lef side seems to hurt the most, nausea/ vomiting. She was here a few days ago for the same, symptoms have continued. She quit drinking soda and tried water. She is having large burps which bring up fluid. LBM was Sunday or Sunday, not passing flatus. Initially denies any previous abdominal surgeries but there are some listed in EMR. Not on anticoagulation. DEYANIRA Sunday. Her emesis has not been bilious, it has been brown but she denies coffee grounds. Related Data Allergies Allergy/AdvReac Type Severity Reaction Status Date / Time No Known Allergies Allergy Unknown Verified 09/08/24 12:11 [facility] Past Medical History Medical History COPD (chronic obstructive pulmonary disease) Type 2 diabetes mellitus with hyperglycemia Radiculopathy, cervical region Degenerative disc disease Acute exacerbation of chronic obstructive pulmonary disease Anxiety Depression Bowel perforation Patient had microperforation from ileocecal diverticulitis in 2017 and was treated conservatively without surgery Bowel obstruction Diverticulitis Pneumonia Emphysema of lung Surgical History Surgical History History of endometrial ablation History of ankle surgery right ankle Hx of knee surgery left knee Hx of spinal surgery L3, L4 Hx of tubal ligation Family History Family History Mother Alzheimer's disease Cerebrovascular accident Hypertension Sibling Diabetes mellitus Type 2 Asthma Hypertension Father Renal carcinoma Colon polyp Sibling Diabetes mellitus Hypertension Other Depression Social History Social History Social History: Patient reports she has one child, a daughter. She has 1 brother and 2 sisters. She had another brother who is . Smoking packs per day: 0.5 Smoking cigarettes per day: 10.0 Years smoked: 3 Smoking pack-years: 1.50 Smoking status: Current every day smoker Tobacco type: cigarettes Second hand tobacco smoke exposure: No Alcohol intake: never Alcohol use details: Reports she occasionally drinks, goes out about once every 3 months and has a few drinks with friends Substance use: never Substance use type: does not use Do You Feel Safe in your Home?: Yes Lack of Transportation: No Lack of Food: Never True Current Housing: I Have Housing Concerned About Future Housing: No Difficulty Paying Gas/Electric Bills: No Difficulty Paying for Meds: No Currently Unemployed: No Education: High School Diploma/GED Difficulty w/ Childcare or Family Care: No Living arrangements: with family Additional living arrangements comments: Resides with and her mother who has Alzheimer's. At present she is caring for both of them. Her just had recent C-spine surgery. 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 EYES: Non injected, non icteric ENT: Nares clear, no rhinorrhea or epistaxis. NECK: Supple. CHEST: Speaking in full sentences. No respiratory distress. HEART: Tachycardic rate and rhythm. . ABDOMEN: Soft, distended. No rigidity or guarding. Not peritoneal. EXTREMITIES: Normal range of motion. No lower extremity edema. SKIN: Warm, dry, no rash. NEURO: No focal deficits. Alert and oriented x3. PSYCH: Congruent mood and affect. Course Vital Signs Vital signs: Vital Signs Temperature 98.0 F 09/08/24 04:23 Pulse Rate 128 H 09/08/24 04:23 Respiratory Rate 22 H 09/08/24 04:23 Blood Pressure 148/99 H 09/08/24 04:23 Pulse Oximetry 99 09/08/24 04:23 Oxygen Delivery Room Air 09/08/24 04:23 Temperature 98.1 F 09/09/24 05:02 Pulse Rate 106 H 09/09/24 05:02 Respiratory Rate 20 09/09/24 05:02 Blood Pressure 128/83 09/09/24 05:02 Pulse Oximetry 93 09/09/24 05:02 Oxygen Delivery Room Air 09/09/24 10:30 MDM - Abdominal Pain MDM Narrative Medical decision making narrative: Patient presents with abdominal pain, nausea, vomiting. Not having bowel movements or passing flatus. I have Strong concern for bowel obstruction. In the emergency department she is afebrile with vital signs that show hypertension, tachycardia with 128 beats per minute, and mild tachypnea 22 breaths per minute. 1 L IV fluids ordered for the tachycardia and Dilaudid ordered for pain with Zofran for nausea. Patient was seen here on 08/27/2024. CT scan at that time showed findings concerning for partial small bowel obstruction and ileus. Patient is in significant pain and distress. Multiple attempts are made an IV but I am informed by nurses that she jerks and jars or moans and groans and pulls including pulling and IV out. IM Dilaudid is ordered instead of IV to help facilitate better pain control to then obtain IV and the rest of patient's workup. Patient has mild leukocytosis. She has marked elevation in hemoglobin and hematocrit and I suspect this is due to significant hemoconcentration. Hyperglycemia with no anion gap or acidosis. Lactic normal. CT with Small bowel obstruction. NG Tube insertion ordered. Discussed with Evin who concurs. Can hold off on antibiotics. Admitted to medicine. Differential Diagnosis Differential diagnosis: Likely abdominal pain, constipation, diverticulitis, pancreatitis and small bowel obstruction Medical Records Attestation: I reviewed the patient's medical records. Medical records narrative: 08/27/24 IMPRESSION: 1. Dilated small bowel with air-fluid levels with transition to normal caliber in the ileum. Findings may represent partial small bowel obstruction and ileus. Lab Data Attestation: I reviewed the patient's lab results. 09/09/24 08:31 09/09/24 08:31 Labs: Lab Results 09/08/24 09/08/24 09/08/24 Range/Units 05:58 06:57 07:03 WBC 11.9 H (4.5-10.0) K/mm3 RBC 5.88 H (4.2-5.4) M/mm3 Hgb 18.7 H (12.0-15.0) g/dL Hct 56.9 H (37.0-47.0) % MCV 96.8 (80-100) fl MCH 31.8 (26-34) pg MCHC 32.9 (32-36) g/dl RDW 13.1 (11.5-14.5) % Plt Count 230 (150-375) k/mm3 MPV 11.2 H (7.4-10.4) fl Immature Gran % (Auto) 0.4 (0-0.5) % Neut % (Auto) 70.4 (45.5-73.1) % Lymph % (Auto) 22.4 (18.3-44.2) % Jasper % (Auto) 5.8 (2.6-8.5) % Eos % (Auto) 0.7 (0-4.4) % Baso % (Auto) 0.3 (0.2-1.2) % Lymph # (Auto) 2.67 (0.9-3.2) K/mm3 Jasper # (Auto) 0.7 H (0.1-0.6) K/mm3 Eos # (Auto) 0.1 (0-0.3) K/mm3 Baso # (Auto) 0.0 (0.0-0.1) K/mm3 Abs Immat Gran (auto) 0.05 H (0.00-0.031) K/mm3 Absolute Neuts (auto) 8.4 H (1.3-6.7) K/mm3 Absolute Nucleated RBC 0.000 (0.0-0.012) K/mm3 Nucleated RBC % 0.0 (0.0-0.2) % % Immature Plt Fraction 9.0 (0.9-11.2) % Sodium 135 L (137-145) mmol/L Potassium 3.6 (3.4-5.0) mmol/L Chloride 101 (98-107) mmol/L Carbon Dioxide 22 (22-30) mmol/L Anion Gap 12 (4-12) mmol/L BUN 12 D (7-17) mg/dL Creatinine 0.86 (0.7-1.0) mg/dL Estim Creat Clear Calc 96 ml/min Estimated GFR > 60 (59 - ) Glucose 172 H (65-110) mg/dL POC Capillary Glucose (65-105) mg/dl Hemoglobin A1c 8.6 H (<5.7) % Lactic Acid 1.4 (0.7-2.0) mmol/L Calcium 9.0 (8.4-10.2) mg/dL Magnesium 1.9 (1.6-2.3) mg/dL Total Bilirubin 0.6 (0.2-1.3) mg/dL AST 27 (14-36) U/L ALT 36 H (6-35) U/L Alkaline Phosphatase 107 (38-126) U/L Total Protein 7.0 (6.3-8.2) g/dL Albumin 4.1 (3.5-5.1) g/dL Lipase 69 (23-300) U/L 09/08/24 09/08/24 09/08/24 Range/Units 11:59 18:33 23:40 WBC (4.5-10.0) K/mm3 RBC (4.2-5.4) M/mm3 Hgb (12.0-15.0) g/dL Hct (37.0-47.0) % MCV (80-100) fl MCH (26-34) pg MCHC (32-36) g/dl RDW (11.5-14.5) % Plt Count (150-375) k/mm3 MPV (7.4-10.4) fl Immature Gran % (Auto) (0-0.5) % Neut % (Auto) (45.5-73.1) % Lymph % (Auto) (18.3-44.2) % Jasper % (Auto) (2.6-8.5) % Eos % (Auto) (0-4.4) % Baso % (Auto) (0.2-1.2) % Lymph # (Auto) (0.9-3.2) K/mm3 Jasper # (Auto) (0.1-0.6) K/mm3 Eos # (Auto) (0-0.3) K/mm3 Baso # (Auto) (0.0-0.1) K/mm3 Abs Immat Gran (auto) (0.00-0.031) K/mm3 Absolute Neuts (auto) (1.3-6.7) K/mm3 Absolute Nucleated RBC (0.0-0.012) K/mm3 Nucleated RBC % (0.0-0.2) % % Immature Plt Fraction (0.9-11.2) % Sodium (137-145) mmol/L Potassium (3.4-5.0) mmol/L Chloride (98-107) mmol/L Carbon Dioxide (22-30) mmol/L Anion Gap (4-12) mmol/L BUN (7-17) mg/dL Creatinine (0.7-1.0) mg/dL Estim Creat Clear Calc ml/min Estimated GFR (59 - ) Glucose (65-110) mg/dL POC Capillary Glucose 144 H 144 H 133 H (65-105) mg/dl Hemoglobin A1c (<5.7) % Lactic Acid (0.7-2.0) mmol/L Calcium (8.4-10.2) mg/dL Magnesium (1.6-2.3) mg/dL Total Bilirubin (0.2-1.3) mg/dL AST (14-36) U/L ALT (6-35) U/L Alkaline Phosphatase (38-126) U/L Total Protein (6.3-8.2) g/dL Albumin (3.5-5.1) g/dL Lipase (23-300) U/L 09/09/24 09/09/24 09/09/24 Range/Units 05:02 08:13 08:31 WBC 10.7 H (4.5-10.0) K/mm3 RBC 4.90 (4.2-5.4) M/mm3 Hgb 15.6 H D (12.0-15.0) g/dL Hct 48.7 H (37.0-47.0) % MCV 99.4 (80-100) fl MCH 31.8 (26-34) pg MCHC 32.0 (32-36) g/dl RDW 13.3 (11.5-14.5) % Plt Count 249 (150-375) k/mm3 MPV 10.4 (7.4-10.4) fl Immature Gran % (Auto) 0.7 H (0-0.5) % Neut % (Auto) 63.4 (45.5-73.1) % Lymph % (Auto) 24.6 (18.3-44.2) % Jasper % (Auto) 9.7 H (2.6-8.5) % Eos % (Auto) 1.3 (0-4.4) % Baso % (Auto) 0.3 (0.2-1.2) % Lymph # (Auto) 2.64 (0.9-3.2) K/mm3 Jasper # (Auto) 1.0 H (0.1-0.6) K/mm3 Eos # (Auto) 0.1 (0-0.3) K/mm3 Baso # (Auto) 0.0 (0.0-0.1) K/mm3 Abs Immat Gran (auto) 0.07 H (0.00-0.031) K/mm3 Absolute Neuts (auto) 6.8 H (1.3-6.7) K/mm3 Absolute Nucleated RBC 0.000 (0.0-0.012) K/mm3 Nucleated RBC % 0.0 (0.0-0.2) % % Immature Plt Fraction (0.9-11.2) % Sodium 139 (137-145) mmol/L Potassium 4.3 (3.4-5.0) mmol/L Chloride 98 (98-107) mmol/L Carbon Dioxide 32 H (22-30) mmol/L Anion Gap 9 (4-12) mmol/L BUN 13 (7-17) mg/dL Creatinine 1.09 H (0.7-1.0) mg/dL Estim Creat Clear Calc 77 ml/min Estimated GFR 53 L (59 - ) Glucose 122 H (65-110) mg/dL POC Capillary Glucose 117 H 115 H (65-105) mg/dl Hemoglobin A1c (<5.7) % Lactic Acid (0.7-2.0) mmol/L Calcium 8.5 (8.4-10.2) mg/dL Magnesium 2.0 (1.6-2.3) mg/dL Total Bilirubin 0.6 (0.2-1.3) mg/dL AST 23 (14-36) U/L ALT 27 (6-35) U/L Alkaline Phosphatase 79 (38-126) U/L Total Protein 7.0 (6.3-8.2) g/dL Albumin 3.6 (3.5-5.1) g/dL Lipase (23-300) U/L Imaging Data Radiologist's impression: ITS Impressions Abdomen/Pelvis CT 09/08/24 07:42 Impression: Probable small bowel obstruction, transition point in the relatively distal small bowel. Small amount of abdominopelvic ascites. Diffuse hepatic steatosis. NG Tube Placement 09/08/24 14:06 IMPRESSION: 1. Successful fluoroscopic guided nasogastric tube placement with distal tip in proximal side port in the body the stomach. 2. Extensive gas-filled small bowel which could be due to ileus or obstruction. Small Bowel X-Ray 09/09/24 14:16 IMPRESSION: 1. Persistent mildly dilated loops of small bowel consistent with small bowel obstruction versus ileus. Transit time to the colon was indeterminate but greater than 1.5 hours at which time at patient request the study was terminated. 2. Nasogastric tube initially in the midesophagus, subsequently repositioned and appropriate position with the distal tip and proximal side port in the body the stomach. Discharge Plan Discharge Clinical Impression: Hyperglycemia, SBO (small bowel obstruction), Abdominal ascites, Hepatic steatosis Patient Disposition: Still a Patient Condition: Stable
[2024-09-08 06:10] LABS: Basophils Percent Auto 0.3 % (0.2-1.2); Eosinophils Absolute Auto 0.1 K/mm3 (0-0.3); Eosinophils Percent Auto 0.7 % (0-4.4); Hematocrit 56.9 % (37.0-47.0); Hemoglobin 18.7 g/dL (12.0-15.0); Immature Granulocyte Absolute 0.05 K/mm3 (0.00-0.031); Immature Granulocyte Percent A 0.4 % (0-0.5); Lymphocytes Absolute Auto 2.67 K/mm3 (0.9-3.2); Lymphocytes Percent Auto 22.4 % (18.3-44.2); Mean Corpuscular HGB Conc 32.9 g/dl (32-36); Mean Corpuscular Hemoglobin 31.8 pg (26-34); Mean Corpuscular Volume 96.8 fl (80-100); Mean Platelet Volume 11.2 fl (7.4-10.4); Monocytes Absolute Auto 0.7 K/mm3 (0.1-0.6); Monocytes Percent Auto 5.8 % (2.6-8.5); Neutrophils Absolute Auto 8.4 K/mm3 (1.3-6.7); Neutrophils Percent Auto 70.4 % (45.5-73.1); Platelet Count Result 230 k/mm3 (150-375); Red Blood Count 5.88 M/mm3 (4.2-5.4); Red Cell Distribution Width 13.1 % (11.5-14.5); White Blood Count 11.9 K/mm3 (4.5-10.0)
[2024-09-08] MEDS: HYDROmorphone HCL INJ (*CRX) 1 MG/ML SYR IM (06:12)
[2024-09-08] MEDS: ONDANSETRON INJ 4 MG/2 ML VIAL IV PUSH ×3 (06:51→23:45)
[2024-09-08] MEDS: SODIUM CHLORIDE 0.9% IV 1,000 ML 999 ML IV CONT (06:51)
[2024-09-08 07:21] LABS: Alanine Aminotransferase 36 U/L (6-35); Albumin Level 4.1 g/dL (3.5-5.1); Alkaline Phosphatase 107 U/L (38-126); Anion Gap 12 mmol/L (4-12); Aspartate Amino Transferase 27 U/L (14-36); Bilirubin,Total 0.6 mg/dL (0.2-1.3); Blood Urea Nitrogen 12 mg/dL (7-17); Carbon Dioxide 22 mmol/L (22-30); Chloride 101 mmol/L (98-107); Estimated CRCL calculation 96 ml/min; Estimated Glomerular Filt Rate > 60; Glucose 172 mg/dL (65-110); Lipase 69 U/L (23-300); Magnesium 1.9 mg/dL (1.6-2.3); Potassium 3.6 mmol/L (3.4-5.0); Sodium 135 mmol/L (137-145)
[2024-09-08 07:22] LABS: Lactic Acid Reflex 1.4 mmol/L (0.7-2.0)
[2024-09-08] MEDS: METOCLOPRAMIDE HCL INJ 10 MG/2 ML VIAL IV PUSH (08:30)
--- NOTE | 2024-09-08 08:50 | PC.NURSE ---
Pt refused the NG tube, pushed nurses aways, grabbed and throw the tube away. Pt educated, pt still refused the NG tube said I can not do this .
[2024-09-08 08:53] VITALS: BP 133/79; PULSE 83; RESP 20; O2SAT 98
[2024-09-08 09:07] VITALS: BP 144/91; PULSE 89; RESP 20; O2SAT 97
--- NOTE | 2024-09-08 09:30 | ADMGEN ---
This patient, Padma Santana, was admitted to 2 Medical Room 251-01. Patient/family oriented to hospital policies and general routines including ID bracelet, bed and alarms, visiting hours, pain management, procedures, bathroom and other care routines, personal items, smoking policy, room service/diet, and visiting hours. Information on how to activate the Rapid Response Team has been discussed. Patient/Family are encouraged to report perceived risks to care and to ask questions if they do not understand what they are told or what they should do.
[2024-09-08 09:41] VITALS: BMI 46.2
--- NOTE | 2024-09-08 09:41 | P.CONGS_ITS ---
Assessment and Plan Assessment and plan (1) SBO (small bowel obstruction): Code(s): K56.609 - Unspecified intestinal obstruction, unspecified as to partial versus complete obstruction Status: Acute Assessment and Plan: CT showed evidence of distal SBO. No history of abdominal surgery. Does have a history of ileocecal diverticulitis with microperforation treated conservatively in 2017. WBC slightly elevated, lactic acid normal. Recommend NG tube decompression, bowel rest, and IV fluids for hydration. NG placement unsuccessful in the ER. Will order NG placement under fluoroscopy. Will get a water soluble SBS once NG placed to further evaluate the small bowel obstruction. Continue to monitor with serial abdominal exams and labs. (2) COPD (chronic obstructive pulmonary disease): Code(s): J44.9 - Chronic obstructive pulmonary disease, unspecified Status: Chronic (3) Type 2 diabetes mellitus with hyperglycemia: Code(s): E11.65 - Type 2 diabetes mellitus with hyperglycemia Status: Chronic (4) Morbid (severe) obesity due to excess calories: Code(s): E66.01 - Morbid (severe) obesity due to excess calories Status: Acute (5) Hepatic steatosis: Onset Date: 09/2024 Code(s): K76.0 - Fatty (change of) liver, not elsewhere classified Status: Chronic (6) Tobacco abuse: Code(s): Z72.0 - Tobacco use Status: Acute Plan I have discussed the patient's case and plan of care with Dr. Cleary. History of Present Illness Consult details Consult date: 09/08/24 Reason for consult: other (Small bowel obstruction) Requesting physician: Yani Moore MD Narrative: This is a 54-year-old woman with no previous abdominal surgery and PMH of COPD, tobacco abuse, diabetes, and obesity, who we have been asked to see in surgical consultation for small bowel obstruction. She developed generalized abdominal cramping pain, nausea, and belching about 2 weeks ago. She came into the ED on 08/27/24 for evaluation of these symptoms. Workup showed mild leukocytosis and CT evidence of dilated small bowel with air- fluid levels with transition to normal caliber in the ileum, consistent with possible partial SBO versus ileus. Symptoms improved in the ED and she was discharged home with dicyclomine and ondansetron. Her symptoms have persisted since then with nausea, vomiting, and abdominal pain. She was constipated leading up to the onset of symptoms, but was moving her bowels regularly up until Lad[place], 3 days ago. She has not been passing flatus or had any bowel movements since then. Over the past few days, she has been unable to keep down any food or fluids and vomits if even trying to take in any water. Her abdominal pain has progressed and is constant without any alleviating factors. She has more pain in the LUQ, but reports generalized cramping pain. Due to her persistent symptoms despite the Zofran and dicyclomine, she came into the ED today. Labs showed WBC count at 11,[address] scan of the abdomen and pelvis showed probable small bowel obstruction with transition point in the relatively distal small bowel, small amount of abdominopelvic ascites, and diffuse hepatic steatosis. She is now seen in the ER. Still no flatus or BM. Nursing had multiple failed attempts at NG placement. No previous abdominal surgeries. She reports having uterine ablation. She was treated for ileocecal diverticulitis with microperforation in 2017 with conservative management. She never had surgery follow-up or colonoscopy, which was recommended at that time. Review of Systems 2 Review of Systems: All systems reviewed & are unremarkable except as noted in HPI and below PMFSH Past Medical History Medical History COPD (chronic obstructive pulmonary disease) Type 2 diabetes mellitus with hyperglycemia Radiculopathy, cervical region Degenerative disc disease Acute exacerbation of chronic obstructive pulmonary disease Anxiety Depression Bowel perforation Patient had microperforation from ileocecal diverticulitis in 2017 and was treated conservatively without surgery Bowel obstruction Diverticulitis Pneumonia Emphysema of lung Surgical History Surgical History History of endometrial ablation History of ankle surgery right ankle Hx of knee surgery left knee Hx of spinal surgery L3, L4 Hx of tubal ligation Family History Family History Mother Alzheimer's disease Cerebrovascular accident Hypertension Sibling Diabetes mellitus Type 2 Asthma Hypertension Father Renal carcinoma Colon polyp Sibling Diabetes mellitus Hypertension Other Depression Social History Social History Social History: Patient reports she has one child, a daughter. She has 1 brother and 2 sisters. She had another brother who is . Smoking packs per day: 0.5 Smoking cigarettes per day: 10.0 Years smoked: 25 Smoking pack-years: 12.50 Smoking status: Current every day smoker Tobacco type: cigarettes Second hand tobacco smoke exposure: No Alcohol intake: never Alcohol use details: Reports she occasionally drinks, goes out about once every 3 months and has a few drinks with friends Substance use: never Substance use type: does not use Do You Feel Safe in your Home?: Yes Lack of Transportation: No Lack of Food: Sometimes True Current Housing: I Have Housing Concerned About Future Housing: No Difficulty Paying Gas/Electric Bills: No Difficulty Paying for Meds: No Currently Unemployed: YES Education: Trade/Vocational Certificate Difficulty w/ Childcare or Family Care: No Living arrangements: with family Additional living arrangements comments: Resides with and her mother who has Alzheimer's. At present she is caring for both of them. Her just had recent C-spine surgery. 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 Gender identity (if verbalized by the patient): Female Sexual Orientation (if Verbalized by the Patient): Straight or Heterosexual Spiritual care concerns: No Agree to blood products: Yes Meds Home Medications and Allergies Home Medications ?Medication ?Instructions ?Recorded ?Confirmed ?Type albuterol sulfate 90 mcg/actuation 2 inh inhalation Q4H PRN shortness 04/20/23 01/31/24 Rx aerosol inhaler of breath or wheezing #8.5 grams empty container (BD Sharps #1 ea 05/07/23 01/31/24 Rx Sleep Technician) blood sugar diagnostic (Contemporary AnalysisTouch #100 ea 03/13/24 Rx Verio test strips) blood-glucose meter #1 ea 03/13/24 Rx semaglutide 1 mg/dose (4 mg/3 mL) 1 mg (0.75 mL) subcut WEEKLY #3 mL 08/19/24 Rx subcutaneous pen injector (Ozempic) dicyclomine 20 mg tablet 20 mg PO QID PRN abdominal pain 08/27/24 Rx #30 tabs ondansetron 4 mg disintegrating 4 mg PO Q6-8H PRN nausea and 03/26/25 Rx tablet vomiting #14 tabs hydrocodone 7.5 mg-acetaminophen 1 tablet PO Q6H PRN pain #90 tabs 08/29/24 Rx 325 mg tablet Allergies Allergy/AdvReac Type Severity Reaction Status Date / Time No Known Allergies Allergy Unknown Verified 09/08/24 09:41 Vital Signs Vital Signs - 24 hr 09/08/24 04:23 09/08/24 08:53 09/08/24 09:07 Temperature 98.0 F Pulse Rate 128 H 83 89 Respiratory Rate 22 H 20 20 Blood Pressure 148/99 H 133/79 144/91 H Pulse Oximetry 99 98 97 Oxygen Delivery Room Air Exam 2 Const: General: no acute distress and uncomfortable Nutritional Appearance: obese Orientation/consciousness: patient oriented x3 HENMT: Head: normocephalic and atraumatic Ears: hearing grossly normal bilaterally Mouth: Yes moist mucous membranes Eyes: General: appearance normal, both eyes and all related structures P upils: Equal, round and reactive pupils present Neck: Neck: normal visual inspection and full ROM Resp: Effort & Inspection: no respiratory distress Auscultation: clear to auscultation bilaterally Cardio: Rate: regular rate Rhythm: regular rhythm Peripheral pulses: P eripheral pulses 2+ throughout GI: Inspection: distended, Pannus present and obesity GI Palp: Yes Soft to palpation, Yes Tenderness to palpation present (GI) (diffusely tender but worse in the LUQ and RLQ) and Yes Guarding due to palpation present (GI) (LUQ) A uscultation: Hypoactive bowel sounds present Rectal Exam: deferred Skin: General skin exam: normal color Neuro: General: moves all extremities and no focal motor deficits Speech: n ormal speech Motor exam (neuro): 5/5 motor strength present throughout Extrem: General: normal to inspection and no edema Psych: Mental Status: mental status grossly normal Attitude: cooperative Insight: Good insight present (Psych) Judgement: Good judgement present (Psych) Results Labs 09/08/24 05:58 09/08/24 06:57 Labs: Abnormal lab results 09/08/24 09/08/24 Range/Units 05:58 06:57 WBC 11.9 H (4.5-10.0) K/mm3 RBC 5.88 H (4.2-5.4) M/mm3 Hgb 18.7 H (12.0-15.0) g/dL Hct 56.9 H (37.0-47.0) % MPV 11.2 H (7.4-10.4) fl [place]ley # (Auto) 0.7 H (0.1-0.6) K/mm3 Abs Immat Gran (auto) 0.05 H (0.00-0.031) K/mm3 Absolute Neuts (auto) 8.4 H (1.3-6.7) K/mm3 Sodium 135 L (137-145) mmol/L Glucose 172 H (65-110) mg/dL ALT 36 H (6-35) U/L Diabetes panel 09/08/24 Range/Units 06:57 Sodium 135 L (137-145) mmol/L Potassium 3.6 (3.4-5.0) mmol/L Chloride 101 (98-107) mmol/L Carbon Dioxide 22 (22-30) mmol/L BUN 12 D (7-17) mg/dL Creatinine 0.86 (0.7-1.0) mg/dL Glucose 172 H (65-110) mg/dL Calcium 9.0 (8.4-10.2) mg/dL AST 27 (14-36) U/L ALT 36 H (6-35) U/L Alkaline Phosphatase 107 (38-126) U/L Total Protein 7.0 (6.3-8.2) g/dL Albumin 4.1 (3.5-5.1) g/dL Calcium panel 09/08/24 Range/Units 06:57 Calcium 9.0 (8.4-10.2) mg/dL Albumin 4.1 (3.5-5.1) g/dL Pituitary panel 09/08/24 Range/Units 06:57 Sodium 135 L (137-145) mmol/L Potassium 3.6 (3.4-5.0) mmol/L Chloride 101 (98-107) mmol/L Carbon Dioxide 22 (22-30) mmol/L BUN 12 D (7-17) mg/dL Creatinine 0.86 (0.7-1.0) mg/dL Glucose 172 H (65-110) mg/dL Calcium 9.0 (8.4-10.2) mg/dL Adrenal panel 09/08/24 Range/Units 06:57 Sodium 135 L (137-145) mmol/L Potassium 3.6 (3.4-5.0) mmol/L Chloride 101 (98-107) mmol/L Carbon Dioxide 22 (22-30) mmol/L BUN 12 D (7-17) mg/dL Creatinine 0.86 (0.7-1.0) mg/dL Glucose 172 H (65-110) mg/dL Calcium 9.0 (8.4-10.2) mg/dL Total Bilirubin 0.6 (0.2-1.3) mg/dL AST 27 (14-36) U/L ALT 36 H (6-35) U/L Alkaline Phosphatase 107 (38-126) U/L Total Protein 7.0 (6.3-8.2) g/dL Albumin 4.1 (3.5-5.1) g/dL All other labs normal. Imaging Additional studies: ITS Impressions Abdomen/Pelvis CT 09/08/24 07:42 Impression: Probable small bowel obstruction, transition point in the relatively distal small bowel. Small amount of abdominopelvic ascites. Diffuse hepatic steatosis.
[2024-09-08 09:57] VITALS: RESP 20; O2SAT 97
[2024-09-08] MEDS: LACTATED RINGERS 1,000 ML 125 ML IV CONT ×2 (10:12→19:53)
[2024-09-08] MEDS: HYDROmorphone HCL INJ (*CRX) 1 MG/ML SYR IV PUSH ×2 (11:18→23:46)
--- NOTE | 2024-09-08 11:19 | P.HP_ITS ---
H&P: HPI History of Present Illness Date/Time: 09/08/24 11:19 Chief Complaint: Abdominal pain Narrative: This is a 54-year-old female who presents with generalized abdominal pain nausea and vomiting for 1 week. She came in evaluation initially in August 27, [address] showed evidence of small bowel dilation with air fluid levels with transition to normal caliber in the ileum consistent with possible partial small-bowel obstruction versus ileus. Symptoms improved and was sent home on supportive treatment. The symptoms however progressed and she continued to have nausea vomiting and abdominal pain leading to come back to the ER last evening. She has not been able to keep her food down. Reports abdominal discomfort days in the lower abdomen. In the ED her vitals were stable or On laboratory workup revealed WBC of 11.9 hemoglobin of 18.7 platelet of 230. Chem panel was unremarkable. CT abdomen pelvis showed probable small-bowel obstruction transition point in the relatively distal small bowel with small amount of abdominal pelvic ascites and diffuse hepatic steatosis NG tube has been attempted in the ER however unsuccessful. She is getting admitted for further treatment. Review of Systems Review of Systems: - CONSTITUTIONAL: Denies weight loss, fe darron and chills. - HEENT: Denies changes in vision and he aring - RESPIRATORY: Denies SOB and cough. - CV: Denies palpitations and CP. - GI: Reports abdominal pain, nausea, v omiting and denies diarrhea. - : Denies dysuria and urinary frequen cy. - MSK: Denies myalgia and joint pain. - SKIN: Denies rash and pruritus. - NEUROLOGICAL: Denies headache and sync ope. - PSYCHIATRIC: Denies recent changes in mood. Denies anxiety and depression. [facility] Past Medical History Medical History COPD (chronic obstructive pulmonary disease) Type 2 diabetes mellitus with hyperglycemia Radiculopathy, cervical region Degenerative disc disease Acute exacerbation of chronic obstructive pulmonary disease Anxiety Depression Bowel perforation Patient had microperforation from ileocecal diverticulitis in 2017 and was treated conservatively without surgery Bowel obstruction Diverticulitis Pneumonia Emphysema of lung Surgical History Surgical History History of endometrial ablation History of ankle surgery right ankle Hx of knee surgery left knee Hx of spinal surgery L3, L4 Hx of tubal ligation Family History Family History Mother Alzheimer's disease Cerebrovascular accident Hypertension Sibling Diabetes mellitus Type 2 Asthma Hypertension Father Renal carcinoma Colon polyp Sibling Diabetes mellitus Hypertension Other Depression Social History Social History Social History: Patient reports she has one child, a daughter. She has 1 brother and 2 sisters. She had another brother who is . Smoking packs per day: 0.5 Smoking cigarettes per day: 10.0 Years smoked: 3 Smoking pack-years: 1.50 Smoking status: Current every day smoker Tobacco type: cigarettes Second hand tobacco smoke exposure: No Alcohol intake: never Alcohol use details: Reports she occasionally drinks, goes out about once every 3 months and has a few drinks with friends Substance use: never Substance use type: does not use Do You Feel Safe in your Home?: Yes Lack of Transportation: No Lack of Food: Never True Current Housing: I Have Housing Concerned About Future Housing: No Difficulty Paying Gas/Electric Bills: No Difficulty Paying for Meds: No Currently Unemployed: No Education: High School Diploma/GED Difficulty w/ Childcare or Family Care: No Living arrangements: with family Additional living arrangements comments: Resides with and her mother who has Alzheimer's. At present she is caring for both of them. Her just had recent C-spine surgery. 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 Gender identity (if verbalized by the patient): Female Sexual Orientation (if Verbalized by the Patient): Straight or Heterosexual Spiritual care concerns: No Agree to blood products: Yes Meds Home Medications and Allergies Home Medications ?Medication ?Instructions ?Recorded ?Confirmed ?Type albuterol sulfate 90 mcg/actuation 2 inh inhalation Q4H PRN shortness 04/20/23 09/08/24 Rx aerosol inhaler of breath or wheezing #8.5 grams empty container (BD Sharps #1 ea 05/07/23 09/08/24 Rx Molecular Biology Director) blood sugar diagnostic (OneTouch #100 ea 03/13/24 09/08/24 Rx Verio test strips) blood-glucose meter #1 ea 03/13/24 09/08/24 Rx semaglutide 1 mg/dose (4 mg/3 mL) 1 mg (0.75 mL) subcut WEEKLY #3 mL 08/19/24 09/08/24 Rx subcutaneous pen injector (Ozempic) dicyclomine 20 mg tablet 20 mg PO QID PRN abdominal pain 08/27/24 09/08/24 Rx #30 tabs ondansetron 4 mg disintegrating 4 mg PO Q6-8H PRN nausea and 08/27/24 09/08/24 Rx tablet vomiting #14 tabs hydrocodone 7.5 mg-acetaminophen 1 tablet PO Q6H PRN pain #90 tabs 08/29/24 09/08/24 Rx 325 mg tablet Allergies Allergy/AdvReac Type Severity Reaction Status Date / Time No Known Allergies Allergy Unknown Verified 09/08/24 09:41 Vital Signs Vital Signs - 24 hr 09/08/24 04:23 09/08/24 08:53 09/08/24 09:07 Temperature 98.0 F Pulse Rate 128 H 83 89 Respiratory Rate 22 H 20 20 Blood Pressure 148/99 H 133/79 144/91 H Pulse Oximetry 99 98 97 Oxygen Delivery Room Air 09/08/24 09:57 Temperature Pulse Rate Respiratory Rate 20 Blood Pressure Pulse Oximetry 97 Oxygen Delivery Room Air Exam Narrative: GENERAL: Well-appearing, well-nourished, and in no acute distress. HEAD: Normocephalic, atraumatic. EYES: Non injected, non icteric ENT: Nares clear, no rhinorrhea or epistaxis. NECK: Supple. CHEST: Speaking in full sentences. No respiratory distress. HEART: Regular rate and rhythm. . ABDOMEN: Soft, nondistended. Tender diffuse no rebound EXTREMITIES: Normal range of motion. No lower extremity edema. SKIN: Warm, dry, no rash. NEURO: No focal deficits. Alert and oriented x3. PSYCH: Normal mood and affect. H&P: Results Labs Labs: Short CBC 09/08/24 Range/Units 05:58 WBC 11.9 H (4.5-10.0) K/mm3 Hgb 18.7 H (12.0-15.0) g/dL Hct 56.9 H (37.0-47.0) % Plt Count 230 (150-375) k/mm3 [facility] 09/08/24 06:57 Sodium 135 L Potassium 3.6 Chloride 101 Carbon Dioxide 22 BUN 12 D Creatinine 0.86 Glucose 172 H Calcium 9.0 Liver Function 09/08/24 Range/Units 06:57 Total Bilirubin 0.6 (0.2-1.3) mg/dL AST 27 (14-36) U/L ALT 36 H (6-35) U/L Alkaline Phosphatase 107 (38-126) U/L Albumin 4.1 (3.5-5.1) g/dL Assessment and Plan Assessment and plan (1) SBO (small bowel obstruction): Code(s): K56.609 - Unspecified intestinal obstruction, unspecified as to partial versus complete obstruction Status: Acute (2) Type 2 diabetes mellitus with hyperglycemia: Code(s): E11.65 - Type 2 diabetes mellitus with hyperglycemia Status: Chronic Plan This is a 54-year-old female who presents with generalized abdominal pain nausea and vomiting for 1 week. She came in evaluation initially in August 27, [address] showed evidence of small bowel dilation with air fluid levels with transition to normal caliber in the ileum consistent with possible partial small-bowel obstruction versus ileus. Symptoms improved and was sent home on supportive treatment. The symptoms however progressed and she continued to have nausea vomiting and abdominal pain leading to come back to the ER last evening. She has not been able to keep her food down. Reports abdominal discomfort days in the lower abdomen. In the ED her vitals were stable or On laboratory workup revealed WBC of 11.9 hemoglobin of 18.7 platelet of 230. Chem panel was unremarkable. CT abdomen pelvis showed probable small-bowel obstruction transition point in the relatively distal small bowel with small amount of abdominal pelvic ascites and diffuse hepatic steatosis NG tube has been attempted in the ER however unsuccessful. She is getting admitted for further treatment. Small bowel obstruction NG tube will be attempted under fluoroscopy. Continue IV fluids and IV analysis 6 Diabetes on Ozempic started since 10 weeks Obesity COPD Tobacco abuse History of diverticulitis with micro perforation in 2017 DVT prophylaxis SCD Code status full code Hospitalist MIPS Advance Care Plan I have confirmed that the patient's Advanced Care Plan is present, code status is documented, or surrogate decision maker is listed in patient medical record.: Yes Medication Reconciliation I have utilized all available resources to obtain, update and review the patients current medications (includes all prescriptions, OTC, herbals, cannabis, and nutritional supplements).: Yes
[2024-09-08 12:05] LABS: Glucose Point of Care 144 mg/dl (65-105)
[2024-09-08 13:18] LABS: Hemoglobin A1C 8.6 % (<5.7)
[2024-09-08 14:00] VITALS: BP 160/80; PULSE 101; RESP 18; TEMP 36.5; O2SAT 100
[2024-09-08 18:37] LABS: Glucose Point of Care 144 mg/dl (65-105)
[2024-09-08 20:54] VITALS: BP 112/66; PULSE 105; RESP 20; TEMP 37.1; O2SAT 99
[2024-09-08 23:43] LABS: Glucose Point of Care 133 mg/dl (65-105)
[2024-09-09] MEDS: LACTATED RINGERS 1,000 ML 125 ML IV CONT (04:37)
[2024-09-09 05:02] VITALS: BP 128/83; PULSE 106; RESP 20; TEMP 36.7; O2SAT 93
--- NOTE | 2024-09-09 05:07 | PC.NURSE ---
Patient has not voided all shift. Encouraged patient to get up to use the restroom, patient states it's too early, I usually don't use the bathroom through the night.
[2024-09-09 05:13] LABS: Glucose Point of Care 117 mg/dl (65-105)
[2024-09-09 08:24] LABS: Glucose Point of Care 115 mg/dl (65-105)
[2024-09-09 08:52] LABS: Alanine Aminotransferase 27 U/L (6-35); Albumin Level 3.6 g/dL (3.5-5.1); Alkaline Phosphatase 79 U/L (38-126); Anion Gap 9 mmol/L (4-12); Aspartate Amino Transferase 23 U/L (14-36); Bilirubin,Total 0.6 mg/dL (0.2-1.3); Blood Urea Nitrogen 13 mg/dL (7-17); Calcium 8.5 mg/dL (8.4-10.2); Carbon Dioxide 32 mmol/L (22-30); Chloride 98 mmol/L (98-107); Estimated CRCL calculation 77 ml/min; Estimated Glomerular Filt Rate 53; Glucose 122 mg/dL (65-110); Potassium 4.3 mmol/L (3.4-5.0); Sodium 139 mmol/L (137-145)
[2024-09-09 08:55] LABS: Basophils Percent Auto 0.3 % (0.2-1.2); Eosinophils Absolute Auto 0.1 K/mm3 (0-0.3); Eosinophils Percent Auto 1.3 % (0-4.4); Hematocrit 48.7 % (37.0-47.0); Hemoglobin 15.6 g/dL (12.0-15.0); Immature Granulocyte Absolute 0.07 K/mm3 (0.00-0.031); Immature Granulocyte Percent A 0.7 % (0-0.5); Lymphocytes Absolute Auto 2.64 K/mm3 (0.9-3.2); Lymphocytes Percent Auto 24.6 % (18.3-44.2); Mean Corpuscular Hemoglobin 31.8 pg (26-34); Mean Corpuscular Volume 99.4 fl (80-100); Mean Platelet Volume 10.4 fl (7.4-10.4); Monocytes Percent Auto 9.7 % (2.6-8.5); Neutrophils Absolute Auto 6.8 K/mm3 (1.3-6.7); Neutrophils Percent Auto 63.4 % (45.5-73.1); Platelet Count Result 249 k/mm3 (150-375); Red Cell Distribution Width 13.3 % (11.5-14.5); White Blood Count 10.7 K/mm3 (4.5-10.0)
--- NOTE | 2024-09-09 08:58 | P.PNGS_ITS ---
Progress Note: A&P Assessment and Plan (1) SBO (small bowel obstruction): Code(s): K56.609 - Unspecified intestinal obstruction, unspecified as to partial versus complete obstruction Status: Acute Assessment and Plan: * Abdominal pain improved, no signs of bowel function as of yet. Continue NG tube decompression, bowel rest, and IV fluids * WS small-bowel follow-through ordered today Plan I have discussed the patient's case and plan of care with Dr. Cleary. Subjective Subjective Date/Time Seen: 09/09/24 08:58 Patient reports: no flatus and no bowel movement Interval history: Patient feeling better. Abdominal pain improved. Denies any abdominal pain this morning or overnight. She has had over 1500 mL out of the NG tube since it was placed in Radiology. She reports passing little flatus yesterday before NG placement, but no flatus or BM today. Her main complaint is discomfort from the NG tube and sore throat. Exam Const: General: no acute distress GI: Inspection: distended, Pannus present and obesity GI Palp: Yes Soft to palpation, Yes Tenderness to palpation present (GI) (diffusely tender), No Guarding due to palpation present (GI) and No Rebound tenderness present Auscultation: Hypoactive bowel sounds present Objective Data Vital Signs Vital Signs: Vital Signs - 24 hr 09/08/24 09:07 09/08/24 09:57 09/08/24 14:00 Temperature 97.7 F Pulse Rate 89 101 H Respiratory Rate 20 20 18 Blood Pressure 144/91 H 160/80 H Pulse Oximetry 97 97 100 Oxygen Delivery Room Air 09/08/24 20:54 09/09/24 05:02 Temperature 98.7 F 98.1 F Pulse Rate 105 H 106 H Respiratory Rate 20 20 Blood Pressure 112/66 128/83 Pulse Oximetry 99 93 Oxygen Delivery Intake/Output Intake/Output: Intake & Output 09/06/24 09/07/24 09/08/24 09/09/24 23:59 23:59 23:59 23:59 Intake Total 2000.0 1000 Output Total 900 650 Balance 1100.0 350 Meds/Results Medications: Active Medications Generic Name Dose Route Start Last Admin Trade Name Freq PRN Reason Stop Dose Admin Acetaminophen 650 mg 09/08/24 08:32 Acetaminophen 650 Mg Suppository RECTAL Q6H PRN Mild Pain (1-3) or Fever Albuterol 2 puff 09/08/24 11:23 Albuterol Sulfate (*Sp) Aerosol 1 Puff INHALATION Q4H PRN shortness of breath or wheezing Dextrose 12.5 gm 09/08/24 11:24 Dextrose 50% 25 Gm/50 Ml Syringe IV PUSH PRN PRN Hypoglycemia Protocol Glucagon 1 mg 09/08/24 11:24 Glucagon For Inj 1 Mg Vial IM PRN PRN Hypoglycemia Protocol Glucose 15 gm 09/08/24 11:24 Glucose Oral Gel 15 Gm Of Glucse In 37.5 Gm Tube PO PRN PRN Hypoglycemia Protocol Hydromorphone HCl 1 mg 09/08/24 08:32 09/08/24 23:46 Hydromorphone Hcl Inj (*Crx) 1 Mg/Ml Syr IV PUSH 1 mg Q4H PRN Administration Pain Rated 7-10 Lactated Ringer's 1,000 mls @ 125 mls/hr 09/08/24 08:35 09/09/24 04:37 Lr - Lactated Ringers Iv IV CONT 125 mls/hr .Q8H MARCOS Administration Dextrose 1,000 mls @ 100 mls/hr 09/08/24 11:24 Dextrose 5% 1,000 Ml IVPB PRN PRN Hypoglycemia Protocol Insulin Aspart 2 - 5 units 09/08/24 12:00 09/09/24 05:06 Insulin Aspart (*Bkc) 100 Units/Ml SUB-Q Not Given Q6HR MARCOS Protocol Ondansetron HCl 4 mg 09/08/24 08:32 09/08/24 23:45 Ondansetron Inj 4 Mg/2 Ml Vial IV PUSH 4 mg Q4H PRN Administration Nausea Ondansetron HCl 4 mg 09/08/24 11:23 Ondansetron Hcl Odt 4 Mg Tablet PO Q6-8H PRN nausea and vomiting Radiology Results: ITS Impressions Abdomen/Pelvis CT 09/08/24 07:42 Impression: Probable small bowel obstruction, transition point in the relatively distal small bowel. Small amount of abdominopelvic ascites. Diffuse hepatic steatosis. NG Tube Placement 09/08/24 14:06 IMPRESSION: 1. Successful fluoroscopic guided nasogastric tube placement with distal tip in proximal side port in the body the stomach. 2. Extensive gas-filled small bowel which could be due to ileus or obstruction. Labs Labs: Laboratory Results - last 24 hr 09/08/24 09/08/24 09/08/24 05:58 11:59 18:33 Sodium Potassium Chloride Carbon Dioxide Anion Gap BUN Creatinine Estim Creat Clear Calc Estimated GFR Glucose POC Capillary Glucose 144 H 144 H Hemoglobin A1c 8.6 H Calcium Magnesium Total Bilirubin AST ALT Alkaline Phosphatase Total Protein Albumin 09/08/24 09/09/24 09/09/24 23:40 05:02 08:13 Sodium Potassium Chloride Carbon Dioxide Anion Gap BUN Creatinine Estim Creat Clear Calc Estimated GFR Glucose POC Capillary Glucose 133 H 117 H 115 H Hemoglobin A1c Calcium Magnesium Total Bilirubin AST ALT Alkaline Phosphatase Total Protein Albumin 09/09/24 08:31 Sodium 139 Potassium 4.3 Chloride 98 Carbon Dioxide 32 H Anion Gap 9 BUN 13 Creatinine 1.09 H Estim Creat Clear Calc 77 Estimated GFR 53 L Glucose 122 H POC Capillary Glucose Hemoglobin A1c Calcium 8.5 Magnesium 2.0 Total Bilirubin 0.6 AST 23 ALT 27 Alkaline Phosphatase 79 Total Protein 7.0 Albumin 3.6
[2024-09-09] MEDS: PHENOL/SOD PHENO SPRAY CHERRY (*BKC) 1 SPRAY MUCOUS MEM (10:28)
--- NOTE | 2024-09-09 11:41 | P.PNIM_ITS ---
Progress Note: A&P Assessment and Plan (1) SBO (small bowel obstruction): Code(s): K56.609 - Unspecified intestinal obstruction, unspecified as to partial versus complete obstruction Status: Acute (2) Type 2 diabetes mellitus with hyperglycemia: Code(s): E11.65 - Type 2 diabetes mellitus with hyperglycemia Status: Chronic Plan This is a 54-year-old female who presents with generalized abdominal pain nausea and vomiting for 1 week. She came in evaluation initially in August 27, [address] showed evidence of small bowel dilation with air fluid levels with transition to normal caliber in the ileum consistent with possible partial small-bowel obstruction versus ileus. Symptoms improved and was sent home on supportive treatment. The symptoms however progressed and she continued to have nausea vomiting and abdominal pain leading to come back to the ER last evening. She has not been able to keep her food down. Reports abdominal discomfort days in the lower abdomen. In the ED her vitals were stable or On laboratory workup revealed WBC of 11.9 hemoglobin of 18.7 platelet of 230. Chem panel was unremarkable. CT abdomen pelvis showed probable small-bowel obstruction transition point in the relatively distal small bowel with small amount of abdominal pelvic ascites and diffuse hepatic steatosis NG tube has been attempted in the ER however unsuccessful. She is getting admitted for further treatment. Small bowel obstruction NG tube placed under fluoroscopy. Continue NG decompression. Continue IV fluids and IV analgesic and IV antiemetic. General surgery on board. Small-bowel follow-through plan today. Diabetes on Ozempic started since 10 weeks Obesity COPD Tobacco abuse History of diverticulitis with micro perforation in 2017 DVT prophylaxis SCD Code status full code Subjective Date/time seen: 09/09/24 11:41 Interval history: No overnight events. No new complaints. Abdominal pain is improved. NG output reviewed Review of Systems Review of Systems: All systems reviewed & are unremarkable except as noted in HPI and below Exam Narrative: GENERAL: Well-appearing, well-nourished, and in no acute distress. HEAD: Normocephalic, atraumatic. EYES: Non injected, non icteric ENT: Nares clear, no rhinorrhea or epistaxis. NECK: Supple. CHEST: Speaking in full sentences. No respiratory distress. HEART: Regular rate and rhythm. . ABDOMEN: Soft, nondistended. Nontender no rebound EXTREMITIES: Normal range of motion. No lower extremity edema. SKIN: Warm, dry, no rash. NEURO: No focal deficits. Alert and oriented x3. PSYCH: Normal mood and affect. Objective Data Vital Signs Vital Signs: Vital Signs - 24 hr 09/08/24 14:00 09/08/24 20:54 09/09/24 05:02 Temperature 97.7 F 98.7 F 98.1 F Pulse Rate 101 H 105 H 106 H Respiratory Rate 18 20 20 Blood Pressure 160/80 H 112/66 128/83 Pulse Oximetry 100 99 93 Intake/Output Intake/Output: Intake & Output 09/06/24 09/07/24 09/08/24 09/09/24 23:59 23:59 23:59 23:59 Intake Total 2000.0 1000 Output Total 900 650 Balance 1100.0 350 Meds/Results Medications: Active Medications Generic Name Dose Route Start Last Admin Trade Name Freq PRN Reason Stop Dose Admin Acetaminophen 650 mg 09/08/24 08:32 Acetaminophen 650 Mg Suppository RECTAL Q6H PRN Mild Pain (1-3) or Fever Albuterol 2 puff 09/08/24 11:23 Albuterol Sulfate (*Sp) Aerosol 1 Puff INHALATION Q4H PRN shortness of breath or wheezing Benzocaine 1 lozenge 09/09/24 08:58 Benzocaine/Menthol (*Bkc) 18 Ea Lozenge PO PRN PRN Sore Throat Dextrose 12.5 gm 09/08/24 11:24 Dextrose 50% 25 Gm/50 Ml Syringe IV PUSH PRN PRN Hypoglycemia Protocol Glucagon 1 mg 09/08/24 11:24 Glucagon For Inj 1 Mg Vial IM PRN PRN Hypoglycemia Protocol Glucose 15 gm 09/08/24 11:24 Glucose Oral Gel 15 Gm Of Glucse In 37.5 Gm Tube PO PRN PRN Hypoglycemia Protocol Hydromorphone HCl 1 mg 09/08/24 08:32 09/08/24 23:46 Hydromorphone Hcl Inj (*Crx) 1 Mg/Ml Syr IV PUSH 1 mg Q4H PRN Administration Pain Rated 7-10 Lactated Ringer's 1,000 mls @ 125 mls/hr 09/08/24 08:35 09/09/24 04:37 Lr - Lactated Ringers Iv IV CONT 125 mls/hr .Q8H MARCOS Administration Dextrose 1,000 mls @ 100 mls/hr 09/08/24 11:24 Dextrose 5% 1,000 Ml IVPB PRN PRN Hypoglycemia Protocol Insulin Aspart 2 - 5 units 09/08/24 12:00 09/09/24 05:06 Insulin Aspart (*Bkc) 100 Units/Ml SUB-Q Not Given Q6HR MARCOS Protocol Ondansetron HCl 4 mg 09/08/24 08:32 09/08/24 23:45 Ondansetron Inj 4 Mg/2 Ml Vial IV PUSH 4 mg Q4H PRN Administration Nausea Ondansetron HCl 4 mg 09/08/24 11:23 Ondansetron Hcl Odt 4 Mg Tablet PO Q6-8H PRN nausea and vomiting Phenol 1 spray 09/09/24 08:58 09/09/24 10:28 Phenol/Sod Pheno Etta Mcgill (*Bkc) MUCOUS MEM 1 spray PRN PRN Administration Sore Throat Radiology Results: ITS Impressions Abdomen/Pelvis CT 09/08/24 07:42 Impression: Probable small bowel obstruction, transition point in the relatively distal small bowel. Small amount of abdominopelvic ascites. Diffuse hepatic steatosis. NG Tube Placement 09/08/24 14:06 IMPRESSION: 1. Successful fluoroscopic guided nasogastric tube placement with distal tip in proximal side port in the body the stomach. 2. Extensive gas-filled small bowel which could be due to ileus or obstruction. Labs Labs: Laboratory Results - last 24 hr 09/08/24 09/08/24 09/08/24 05:58 11:59 18:33 WBC RBC Hgb Hct MCV MCH MCHC RDW Plt Count MPV Immature Gran % (Auto) Neut % (Auto) Lymph % (Auto) [place] % (Auto) Eos % (Auto) Baso % (Auto) Lymph # (Auto) [place] # (Auto) Eos # (Auto) Baso # (Auto) Abs Immat Gran (auto) Absolute Neuts (auto) Absolute Nucleated RBC Nucleated RBC % Sodium Potassium Chloride Carbon Dioxide Anion Gap BUN Creatinine Estim Creat Clear Calc Estimated GFR Glucose POC Capillary Glucose 144 H 144 H Hemoglobin A1c 8.6 H Calcium Magnesium Total Bilirubin AST ALT Alkaline Phosphatase Total Protein Albumin 09/08/24 09/09/24 09/09/24 23:40 05:02 08:13 WBC RBC Hgb Hct MCV MCH MCHC RDW Plt Count MPV Immature Gran % (Auto) Neut % (Auto) Lymph % (Auto) [place] % (Auto) Eos % (Auto) Baso % (Auto) Lymph # (Auto) [place] # (Auto) Eos # (Auto) Baso # (Auto) Abs Immat Gran (auto) Absolute Neuts (auto) Absolute Nucleated RBC Nucleated RBC % Sodium Potassium Chloride Carbon Dioxide Anion Gap BUN Creatinine Estim Creat Clear Calc Estimated GFR Glucose POC Capillary Glucose 133 H 117 H 115 H Hemoglobin A1c Calcium Magnesium Total Bilirubin AST ALT Alkaline Phosphatase Total Protein Albumin 09/09/24 08:31 WBC 10.7 H RBC 4.90 Hgb 15.6 H D Hct 48.7 H MCV 99.4 MCH 31.8 MCHC 32.0 RDW 13.3 Plt Count 249 MPV 10.4 Immature Gran % (Auto) 0.7 H Neut % (Auto) 63.4 Lymph % (Auto) 24.6 [place] % (Auto) 9.7 H Eos % (Auto) 1.3 Baso % (Auto) 0.3 Lymph # (Auto) 2.64 [place] # (Auto) 1.0 H Eos # (Auto) 0.1 Baso # (Auto) 0.0 Abs Immat Gran (auto) 0.07 H Absolute Neuts (auto) 6.8 H Absolute Nucleated RBC 0.000 Nucleated RBC % 0.0 Sodium 139 Potassium 4.3 Chloride 98 Carbon Dioxide 32 H Anion Gap 9 BUN 13 Creatinine 1.09 H Estim Creat Clear Calc 77 Estimated GFR 53 L Glucose 122 H POC Capillary Glucose Hemoglobin A1c Calcium 8.5 Magnesium 2.0 Total Bilirubin 0.6 AST 23 ALT 27 Alkaline Phosphatase 79 Total Protein 7.0 Albumin 3.6
--- NOTE | 2024-09-09 13:57 | PC.NURSE ---
Patient notified of risks of leaving AMA. [Joanna ]notified. Follow up instructions given to patient. Patient refused to signed AMA form. Patient returned from X-ray during small bowel series. Patient stated she's leaving against medical advice. Notified provider. Education was provided on why she's here and where she should go for further treatment.
--- NOTE | 2024-09-09 14:06 | PM.DS ---
DS: Admitting Diagnosis Discharge Date 09/09/2024 Admitting Diagnosis Abdominal pain DS: Discharge Diagnosis Discharge Diagnosis (1) SBO (small bowel obstruction): Code(s): K56.609 - Unspecified intestinal obstruction, unspecified as to partial versus complete obstruction Status: Acute (2) Type 2 diabetes mellitus with hyperglycemia: Code(s): E11.65 - Type 2 diabetes mellitus with hyperglycemia Status: Chronic DS: Summary Hospital Course Hospital Course: This is a 54-year-old female who presents with generalized abdominal pain nausea and vomiting for 1 week. She came in evaluation initially in August 27, [address] showed evidence of small bowel dilation with air fluid levels with transition to normal caliber in the ileum consistent with possible partial small-bowel obstruction versus ileus. Symptoms improved and was sent home on supportive treatment. The symptoms however progressed and she continued to have nausea vomiting and abdominal pain leading to come back to the ER last evening. She has not been able to keep her food down. Reports abdominal discomfort days in the lower abdomen. In the ED her vitals were stable or On laboratory workup revealed WBC of 11.9 hemoglobin of 18.7 platelet of 230. Chem panel was unremarkable. CT abdomen pelvis showed probable small-bowel obstruction transition point in the relatively distal small bowel with small amount of abdominal pelvic ascites and diffuse hepatic steatosis NG tube has been attempted in the ER however unsuccessful. She is getting admitted for further treatment. Small bowel obstruction NG tube placed under fluoroscopy. Continue NG decompression. Continue IV fluids and IV analgesic and IV antiemetic. General surgery on board. Small-bowel follow-through plan today and result pending. Patient however was demented leaving against medical advise. Patient alert and oriented x3 was wanted to smoke and getting agitated. Offered nicotine patch however refuses and curses. Patient subsequently left against medical advise. Diabetes on Ozempic started since 10 weeks Obesity COPD Tobacco abuse History of diverticulitis with micro perforation in 2017 DVT prophylaxis SCD Code status full code Time Spent with Patient Time attestation: Total time spent providing and/or coordinating discharge services: 35 minutes Exam Narrative: GENERAL: Well-appearing, well-nourished, and in no acute distress. HEAD: Normocephalic, atraumatic. EYES: Non injected, non icteric ENT: Nares clear, no rhinorrhea or epistaxis. NECK: Supple. CHEST: Speaking in full sentences. No respiratory distress. HEART: Regular rate and rhythm. . ABDOMEN: Soft, nondistended. Nontender no rebound EXTREMITIES: Normal range of motion. No lower extremity edema. SKIN: Warm, dry, no rash. NEURO: No focal deficits. Alert and oriented x3. Agitated PSYCH: Agitated DS: Data Data Completed and Pending Labs on day of discharge: Labs from last 24 hours 09/09/24 09/09/24 09/09/24 08:31 08:13 05:02 WBC 10.7 H RBC 4.90 Hgb 15.6 H D Hct 48.7 H MCV 99.4 MCH 31.8 MCHC 32.0 RDW 13.3 Plt Count 249 MPV 10.4 Immature Gran % (Auto) 0.7 H Neut % (Auto) 63.4 Lymph % (Auto) 24.6 [place] % (Auto) 9.7 H Eos % (Auto) 1.3 Baso % (Auto) 0.3 Lymph # (Auto) 2.64 [place] # (Auto) 1.0 H Eos # (Auto) 0.1 Baso # (Auto) 0.0 Abs Immat Gran (auto) 0.07 H Absolute Neuts (auto) 6.8 H Absolute Nucleated RBC 0.000 Nucleated RBC % 0.0 Sodium 139 Potassium 4.3 Chloride 98 Carbon Dioxide 32 H Anion Gap 9 BUN 13 Creatinine 1.09 H Estim Creat Clear Calc 77 Estimated GFR 53 L Glucose 122 H POC Capillary Glucose 115 H 117 H Calcium 8.5 Magnesium 2.0 Total Bilirubin 0.6 AST 23 ALT 27 Alkaline Phosphatase 79 Total Protein 7.0 Albumin 3.6 09/08/24 09/08/24 23:40 18:33 WBC RBC Hgb Hct MCV MCH MCHC RDW Plt Count MPV Immature Gran % (Auto) Neut % (Auto) Lymph % (Auto) [place] % (Auto) Eos % (Auto) Baso % (Auto) Lymph # (Auto) [place] # (Auto) Eos # (Auto) Baso # (Auto) Abs Immat Gran (auto) Absolute Neuts (auto) Absolute Nucleated RBC Nucleated RBC % Sodium Potassium Chloride Carbon Dioxide Anion Gap BUN Creatinine Estim Creat Clear Calc Estimated GFR Glucose POC Capillary Glucose 133 H 144 H Calcium Magnesium Total Bilirubin AST ALT Alkaline Phosphatase Total Protein Albumin Imaging Radiologist's impression: ITS Impressions Abdomen/Pelvis CT 09/08/24 07:42 Impression: Probable small bowel obstruction, transition point in the relatively distal small bowel. Small amount of abdominopelvic ascites. Diffuse hepatic steatosis. NG Tube Placement 09/08/24 14:06 IMPRESSION: 1. Successful fluoroscopic guided nasogastric tube placement with distal tip in proximal side port in the body the stomach. 2. Extensive gas-filled small bowel which could be due to ileus or obstruction. Discharge Plan Discharge Consulting providers: Leah Cleary Patient Disposition: Left Against Medical Advice Patient Language: Ethiopian Discharge Medications: No Action albuterol sulfate 90 mcg/actuation HFA aerosol inhaler 2 inh inhalation Q4H PRN (Reason: shortness of breath or wheezing) Qty: 8.5 4RF ondansetron 4 mg tablet,disintegrating 4 mg PO Q6-8H PRN (Reason: nausea and vomiting) Qty: 14 0RF dicyclomine 20 mg tablet 20 mg PO QID PRN (Reason: abdominal pain) Qty: 30 0RF (DME) [facility] Registered Nurse Nursery Misc See Rx Instructions .Route Qty: 1 0RF Rx Instructions: As directed (DME) blood-glucose meter Misc See Rx Instructions .Route Qty: 1 0RF Rx Instructions: use to test blood sugars once daily (DME) OneTouch Verio test strips Strip See Rx Instructions .Route Qty: 100 2RF Rx Instructions: use to test blood sugars once daily Ozempic 1 mg/dose (4 mg/3 mL) pen injector 1 mg subcut WEEKLY Qty: 3 5RF hydrocodone-acetaminophen 7.5-325 mg tablet 1 tablet PO Q6H PRN (Reason: pain) Qty: 90 0RF Date of admission: 09/09/24 09:20 Primary Care Provider: Cb Perdue Admitting Provider: John Marshall Attending physician on admission: John Marshall
== END 2024-09-09 13:40 | disposition left against medical advice (07) ==
LOC: ANHED 05:10 → ANH2MED 08:57
PROVIDERS: Admitting Provider Internal Medicine; Emergency Provider Student in an Organized Health Care Education/Training Program; PCP Family Medicine Adolescent Medicine; Visit Provider Internal Medicine
DX: K56.609 Unspecified intestinal obstruction, unspecified as to partial versus complete obstruction (principal); E11.65 Type 2 diabetes mellitus with hyperglycemia; J43.9 Emphysema, unspecified; F17.210 Nicotine dependence, cigarettes, uncomplicated; K76.0 Fatty (change of) liver, not elsewhere classified; R18.8 Other ascites; M54.12 Radiculopathy, cervical region; E66.01 Morbid (severe) obesity due to excess calories; Z68.42 Body mass index [BMI] 45.0-49.9, adult; F41.9 Anxiety disorder, unspecified; F32.A Depression, unspecified; Z79.51 Long term (current) use of inhaled steroids; Z79.85 Long-term (current) use of injectable non-insulin antidiabetic drugs; Z87.19 Personal history of other diseases of the digestive system; Z98.890 Other specified postprocedural states; Z79.899 Other long term (current) drug therapy
CPT/HCPCS: 36415; 74177; 74250; 80053; 82948; 83036; 83605; 83690; 83735; 85025; 85055; 96361; 96372; 96374; 96375; 96376; 99285; A9270; G0378; G0379; J1171; J2405; J2765; J7030; J7120; Q9967

== ENCOUNTER 2025-04-29 16:23 | Emergency (ER) | payer OTHER, SELFPAY ==
--- OUTSIDE RECORDS SUMMARY | 2025-04-29 16:26 | XMS_ITS | Clinical Summary ---
Author Organization [facility] Address [address], [address] [address] Phone Care Team Providers Care Political Director Name Role Phone Cb Perdue MD Primary [...] times daily. 60 Tab 3 03/21/2017 Active predniSONE (DELTASONE) 10 MG Tablet Take 4 tabs for days 1 through 5, then take 2 tabs for days 6 through 10, then take 1 tab for days 11 through 15 35 Tablet 02/23/2025 Active Encounters Date Type Department Care Team Description 02/23/2025 12:48 PM CDT - 02/23/2025 1:20 PM CDT Emergency 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, [employer] AND [employer]ICER Dermatitis due to plants, including poison abdi, sumac, and oak Discharge Disposition: Discharged to home or Selfcare 02/23/2025 Travel from Last 3 Months Family History Medical History Relation Name Comments [...] Sign Reading Time Taken Comments Blood Pressure 159/87 02/23/2025 12:47 PM CDT Pulse 108 02/23/2025 12:45 PM CDT Temperature 36.9 C (98.4 F) 02/23/2025 12:45 PM CDT Respiratory Rate 18 02/23/2025 12:45 PM CDT Oxygen Saturation 100% 02/23/2025 12:45 PM CDT Inhaled Oxygen Concentration - - Weight 133.5 kg (294 lb 5 oz) 02/23/2025 12:45 P M CDT Height 175.3 cm (5' 9) 02/23/2025 12:45 PM CDT Body Mass Index 43.46 02/23/2025 12:45 PM CDT Plan of Treatment Health Maintenance Due Date Last Done Comments Hepatitis C Virus (HCV) Screening 1970 Mammogram 1970 Hepatitis B Immunization (1 of 3 - 19+ 3-dose series) 02/14/1991 Pap Smear 02/14/1993 Cervical Cancer Screening (CCS) 02/14/2002 HPV/Cotest 02/14/2002 Cologuard 02/14/2017 Immunochemical Fecal Occult Blood 02/14/2017 Pneumococcal Immunization (5 0+ years) (2 of 2 - PCV) 09/01/2017 09/01/2016 Respiratory Syncytial Virus (RSV) Immunization (Adult) (1 - Risk 50-74 years 1-dose series) 02/14/2022 Zoster Immunization (1 of 2) 02/14/2022 Influenza Immunization (#1) 2025 07/20/2021 SARS-COV-2 Immunization (3 - season) 2025 08/10/2021, 07/20/2021 Colonoscopy 05/03/2027 05/03/2017 Colorectal Cancer Screening 05/03/2027 Pneumococcal Immunization Combined Discontinued 09/01/2016 DTaP/Tdap/Td Immunization Discontinued 11/26/2017 TdaP Immunization Completed 11/26/2017 Human Papillomavirus (HPV) Immunization Aged Out No longer eligible based on patient's age to complete this topic Meningococcal Immunization (ACWY) Aged Out No longer eligible based on patient's age to complete this topic Rotavirus Immunization Aged Out No lo nger eligible based on patient's age to complete this topic Insurance [place]ID [place] Care Teams Political Director Relationship Specialty Start Date End Date Cb Perdue MD PCP - General Family Medicine 03/21/17
--- OUTSIDE RECORDS SUMMARY | 2025-04-29 16:28 | XMS_ITS | Clinical Summary ---
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 Name Role Phone Cb Perdue MD Primary Care Prov ider Allergies No known active allergies Medications cyclobenzaprine (FLEXERIL) 5 mg tablet Take 1 tablet (5 mg total) by mouth 3 (three) times a day as needed for muscle spasms Active LANTUS 100 unit/mL (3 mL) pen for injection Inject 55 Units under the skin leguillon debeader before breakfast 5 Active albuterol HFA (PROVENTIL HFA,VENTOLIN HFA,PROAIR HFA) 90 mcg/actuation inhaler Inhale 1 puff every 6 (six) hours as needed for wheezing or shortness of breath 3 Active HYDROcodone-gali taminophen (NORCO) 7.5-325 mg per tabletIndicatio ns:Pain Take 1 tablet by mouth every 6 (six) hours as needed for pain Active Active Problems Problem Noted Date Diagnosed Date COPD exacerbation 03/29/2025 Hyperglycemia 03/29/2025 Chest pain 03/29/2025 SBO (small bowel obstruction) 09/14/2024 Encounters Date Type Department Care Team Description 03/29/2025 12:19 PM CDT - 04/01/2025 9:30 AM CDT Hospital Encounter [facility] [address] [place] [address] Triston Lynn Jr., MD Akuse, MD Ron Vela Jonathan S., MD COPD exacerbation (HCC) (Primary Dx) Discharge Disposition: Left Against Medical Advice from Last 3 Months Surgical History Surgery Date Site/Laterality Comments BACK SURGERY KNEE SURGERY ANKLE SURGERY ABLATION Uterus Medical History Medical History Date Comments Diabetes mellitus Obesity COPD (chronic obstructive pulmonary disease) Family History Medical History Relation Name Comments Cancer Father Kidney disease Father Arthritis Mother Heart disease Mother Relation Name Status Comments Father Mother Social History Tobacco Use Types Packs/Day Years Used Date Smoking Tobacco: Every Day Cigarettes Smokeless Tobacco: Never Alcohol Use Standard Drinks/Week Comments Yes 0 (1 standard drink = 0.6 oz pur e alcohol) Rare Social Connection and Isolation Panel Answer Date Recorded In a typical week, how many times do you talk on the phone with family, friends, or neighbors? Three times a week 09/15/2024 How often do you get togethe r with friends or relatives? Three times a week 09/15/2024 How often do you attend chur ch or worship services? Never 09/15/2024 Do you belong to any clubs o r organizations such as bahai groups, unions, fraternal or athletic groups, or school groups? No 09/15/2024 How often do you attend meet ings of the clubs or organizations you belong to? Never 09/15/2024 Are you , , di vorced, , never , or living with a partner? 09/15/2024 AUDIT-C Answer Date Recorded Q1: How often do you have a drink containing alc ohol? 2-4 times a month 02/25/2021 Q2: How many drinks containi ng alcohol do you have on a typical day when you are drinking? 1 or 2 02/25/2021 Q3: How often do you have si x or more drinks on one occasion? Never 02/25/2021 Overall Financial Resource Strain (CARDIA) Answe r Date Recorded How hard is it for you to pa y for the very basics like food, housing, medical care, and heating? Very hard 09/15/2024 PRAPARE - Transportation Answer Date Re corded In the past 12 months, has l ack of transportation kept you from medical appointments or from getting medications? No 09/02 In the past 12 months, has l ack of transportation kept you from meetings, work, or from getting things needed for daily living? No 09/15/2024 Housing Stability Vital Sign Answer Fer e Recorded In the last 12 months, was t here a time when you were not able to pay the mortgage or rent on time? No 09/15/2024 Number of Times Moved in the Last Year Not on fi le 09/15/2024 At any time in the past 12 m [facility], were you homeless or living in a skilled nursing (including now)? No 09/15/2024 Social Connection and Isolation Panel Answer Date Recorded In a typical week, how many times do you talk on the phone with family, friends, or neighbors? More than three times a week 03/30/2025 How often do you get togethe r with friends or relatives? Three times a week 03/30/2025 How often do you attend chur ch or worship services? Never 03/30/2025 Do you belong to any clubs o r organizations such as bahai groups, unions, fraternal or athletic groups, or school groups? No 03/30/2025 How often do you attend meet ings of the clubs or organizations you belong to? Never 03/30/2025 Are you , , di vorced, , never , or living with a partner? 03/30/2025 Overall Financial Resource Strain (CARDIA) Answe r Date Recorded How hard is it for you to pa y for the very basics like food, housing, medical care, and heating? Very hard 03/30/2025 Hunger Vital Sign Answer Date Recorded Within the past 12 months, y ou worried that your food would run out before you got the money to buy more. Never true 03/30/20 25 Within the past 12 months, t he food you bought just didn't last and you didn't have money to get more. Never true 03/30/2025 PRAPARE - Transportation Answer Date Re corded In the past 12 months, has l ack of transportation kept you from medical appointments or from getting medications? No 03/05 In the past 12 months, has l ack of transportation kept you from meetings, work, or from getting things needed for daily living? No 03/30/2025 Housing Stability Vital Sign Answer Fer e Recorded In the last 12 months, was t here a time when you were not able to pay the mortgage or rent on time? Yes 03/30/2025 In the past 12 months, how m any times have you moved where you were living? 0 03/30/2025 At any time in the past 12 m [facility], were you homeless or living in a skilled nursing (including now)? No 03/30/2025 [facility] Utilities Answer Date Recorded In the past 12 months has th e [employer], gas, oil, or water company threatened to shut off services in your home? Yes 03/30/2025 Personal Safety Answer Date Recorded Have you ever been in or are you currently in a harmful physical or emotional relationship or is someone making you feel afraid or unsafe? 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 Not on file Not on file Obstetrics History Para Term AB IAB SAB Ectopic Multiple Livin g Live Births 1 1 Date Outcome GA Total Labor Labor/2nd/3rd Weight Sex Type Anes PTL Aaliyah A1 A5 Name Clin Para Last Filed Vital Signs Vital Sign Reading Time Taken Comments Blood Pressure 142/65 04/01/2025 8:25 AM CDT Pulse 89 04/01/2025 8:25 AM CDT Temperature 35.9 C (96.6 F) 04/01/2025 8:25 AM CDT Respiratory Rate 18 04/01/2025 8:25 AM CDT Oxygen Saturation 95% 04/01/2025 8:25 AM CDT Inhaled Oxygen Concentration - - Weight 133.8 kg (294 lb 15.6 oz) 03/29/2025 3:58 PM CDT Height 170.2 cm (5' 7) 03/29/2025 3:58 PM CDT Body Mass Index 46.2 03/29/2025 3:58 PM CDT Plan of Treatment Health Maintenance Due Date Last Done Comments Breast Cancer Screening-Mammogram 1972 Cervical Cancer Screening 1972 Colon Cancer Screening-Colonoscopy 1972 Depression Screening 1972 Hepatitis C Screening 1972 Hepatitis B Screening 02/14/1990 Regular Well Visit/Exam 18-64 02/14/1990 Pneumococcal vaccine <65 (2 of 2 - PCV) 09/01/2017 0 09/01/2016 Zoster Vaccine (1 of 2) 02/14/2022 Influenza Vaccine (#1) 2025 07/20/2021 DTaP/Tdap/Td Vaccine (2 - Td or Tdap) 11/27/2027 Procedures Procedure Name Priority Date/Time Associated Diagnosis Comments POCT GLUCOSE DEVICE Routine 04/01/2025 8 :37 AM CDT POCT GLUCOSE DEVICE Routine 04/01/2025 2 :25 AM CDT POCT GLUCOSE DEVICE Routine 03/31/2025 8 :15 PM CDT AMPHETAMINE, URINE, CONFIRMATION Routine 03/31/2025 5:29 PM CDT DRUGS OF ABUSE SCREEN, URINE WITH REFLEX CONFIRMATION Routine 03/31/2025 5:29 PM CDT POCT GLUCOSE DEVICE Routine 03/31/2025 5 :13 PM CDT POCT GLUCOSE DEVICE Routine 03/31/2025 3 :10 PM CDT POCT GLUCOSE DEVICE Routine 03/31/2025 1 2:15 PM CDT POCT GLUCOSE DEVICE Routine 03/31/2025 1 1:38 AM CDT POCT GLUCOSE DEVICE Routine 03/31/2025 8 :00 AM CDT EGFR Routine 03/31/2025 2:27 AM CDT DIFFERENTIAL AUTO Routine 03/31/2025 2:2 7 AM CDT HEMOGLOBIN A1C Routine 03/31/2025 2:27 AM CDT CBC WITH AUTO DIFFERENTIAL Routine 03/31/2025 2:27 AM CDT COMPREHENSIVE METABOLIC PANEL Routine 03/31/2025 2:27 AM CDT POCT GLUCOSE DEVICE Routine 03/31/2025 2 :03 AM CDT POCT GLUCOSE DEVICE Routine 03/30/2025 8 :05 PM CDT POCT GLUCOSE DEVICE Routine 03/30/2025 4 :50 PM CDT POCT GLUCOSE DEVICE Routine 03/30/2025 3 :01 PM CDT POCT GLUCOSE DEVICE Routine 03/30/2025 1 2:28 PM CDT TRANSTHORACIC ECHO (TTE) COMPLETE W DOPPLER/CF W CONTRAST Routine 03/30/2025 8:15 AM CDT POCT GLUCOSE DEVICE Routine 03/30/2025 7 :50 AM CDT POCT GLUCOSE DEVICE Routine 03/30/2025 3 :15 AM CDT EGFR Routine 03/30/2025 12:26 AM CDT DIFFERENTIAL AUTO Routine 03/30/2025 12: 26 AM CDT CBC WITH AUTO DIFFERENTIAL Routine 03/30/2025 12:26 AM CDT COMPREHENSIVE METABOLIC PANEL Routine 03/30/2025 12:26 AM CDT PRO B-TYPE NATRIURETIC PEPTIDE Routine 03/30/2025 12:26 AM CDT POCT GLUCOSE DEVICE Routine 03/30/2025 1 2:24 AM CDT PROCALCITONIN Routine 03/30/2025 12:20 AM CDT POCT GLUCOSE DEVICE Routine 03/29/2025 1 0:23 PM CDT POCT GLUCOSE DEVICE Routine 03/29/2025 9 :17 PM CDT TROPONIN T HIGH-SENSITIVITY 6-HOUR Timed 03/29/2025 8:35 PM CDT POCT GLUCOSE DEVICE Routine 03/29/2025 8 :03 PM CDT TROPONIN T HIGH-SENSITIVITY 4-HR Timed 03/29/2025 5:57 PM CDT POCT GLUCOSE DEVICE Routine 03/29/2025 5 :52 PM CDT POCT GLUCOSE DEVICE Routine 03/29/2025 5 :04 PM CDT TROPONIN T HIGH-SENSITIVITY 2-HOUR Timed 03/29/2025 4:18 PM CDT EGFR Routine 03/29/2025 2:07 PM CDT DIFFERENTIAL AUTO STAT 03/29/2025 2:0 7 PM CDT COMPREHENSIVE METABOLIC PANEL Routine 03/29/2025 2:07 PM CDT TROPONIN T HIGH-SENSITIVITY SERIES (BASELINE, 2HR, 4HR, 6HR) Timed 03/29/2025 2:07 PM CDT CBC WITH AUTO DIFFERENTIAL STAT 03/29/2025 2:07 PM CDT XR CHEST 1 VIEW ED 03/29/2025 12:33 PM CDT INFLUENZA A/B, RSV, AND COVID-19 PCR STAT 03/29/2025 12:30 PM CDT ECG 12-LEAD STAT 03/29/2025 12:21 PM CDT from Last 3 Months Results * (ABNORMAL) POCT glucose (04/01/2025 8:37 AM CDT) [facility] Glucose, POC 221(H) 70 - 199 mg/dL Blood 04/01/2025 8:37 AM CDT 04/01/2025 8:37 AM CDT Kee Velasquez MD LAB POCT ORDERABLES - DEVICE Final Result Performing Organization Address [facility] Co de Phone Number AURELIO RUSH (ANCHOR) 1 [facility] [place] [address] * (ABNORMAL) POCT glucose (04/01/2025 2:25 AM CDT) Glucose, POC 323(H) 70 - 199 mg/dL Blood 04/01/2025 2:25 AM CDT 04/01/2025 2:25 AM CDT Grace Maynard MD LAB POCT ORDERABLES - DEVICE Final Result Performing Organization Address [facility] Co de Phone Number AURELIO RUSH (ANCHOR) 1 [facility] [place] [address] * (ABNORMAL) POCT glucose (03/31/2025 8:15 PM CDT) Glucose, POC 345(H) 70 - 199 mg/dL Blood 03/31/2025 8:15 PM CDT 03/31/2025 8:15 PM CDT Grace Maynard MD LAB POCT ORDERABLES - DEVICE Final Result Performing Organization Address [facility] Co de Phone Number AURELIO RUSH (ANCHOR) 1 [facility] [place] [address] * (ABNORMAL) Drugs of Abuse Screen, Urine with Reflex Confirmation (03/31/2025 5:29 PM CDT) Pathologist [facility] Amphetamine, ur Screen Positive, presumptive (A) CutOff 500ng/mL Comment: Interpretive Data - Amphetamines: Samples containing greater than 500 ng/mL d-methamphetamine or other cross-reacting amphetamine compounds are reported as positive. Amphetamine immunoassays are subject to significant false positive rates due to cross-reactivity of non-amphetamine drugs. Confirmatory testing required for definitive results. Current Interpretive Data was last reviewed 2023. Barbiturates, ur Not Detected CutOff 200ng/mL [facility] ([place]) Comment: Interpretive Data - Barbiturates: Samples containing greater than 200 ng/mL secobarbital or other cross-reacting barbiturate compounds are reported as positive. False positive and false negative results are possible. Confirmatory testing required for definitive results. Current Interpretive Data was last reviewed 2023. Benzodiazepines, ur Not Detected CutOff 100ng/mL [facility] ([place]) Comment: Interpretive Data - Benzodiazepines: Samples containing greater than 100 ng/mL nordiazepam or other cross-reacting compounds are reported as positive. False positive and false negative results are possible. Confirmatory testing required for definitive results. Current Interpretive Data was last reviewed 2023. Cannabinoids, ur Not Detected CutOff 50 ng/mL [facility] ([place]) Comment: Interpretive Data - Cannabinoids: Samples containing greater than 50 ng/mL delta-9 THC -COOH or other cross- reacting compounds are reported as positive. False positive and false negative results are possible. Confirmatory testing required for definitive results. Current Interpretive Data was last reviewed 2023. Cocaine, ur Not Detected CutOff 150ng/mL [facility] ([place]) Comment: Interpretive Data - Cocaine: Samples containing greater than 150 ng/mL benzoylecgonine or other cross- reacting compounds are reported as positive. False positive and false negative results are possible. Confirmatory testing required for definitive results. Current Interpretive Data was last reviewed 2023. Fentanyl, Ur Not Detected CutOff 5 ng/mL [facility] ([place]) Comment: Interpretive Data - Fentanyl: Samples containing greater than 5 ng/mL norfentanyl, fentanyl, or other cross-reacting fentanyl compounds are reported as positive. False positive and false negative results are possible. Confirmatory testing required for definitive results. Current Interpretive Data was last reviewed 2023. Methadone, ur Not Detected CutOff 300ng/mL [facility] ([place]) Comment: Interpretive Data - Methadone: Samples containing greater than 300 ng/mL d,l-methadone or other cross-reacting compounds are reported as positive. False positive and false negative results are possible. Confirmatory testing required for definitive results. Current Interpretive Data was last reviewed 2023. Opiates, ur Not Detected CutOff 300ng/mL AURELIO RUSH (SERGIO) Comment: Interpretive Data - Opiates: Samples containing greater than 300 ng/mL morphine or other cross-reacting compounds are reported as positive. False positive and false negative results are possible. Confirmatory testing required for definitive results. Current Interpretive Data was last reviewed 2023. Oxycodone, ur NOT DETECTED CutOff 100ng/mL [facility] (SERGIO) Comment: Interpretive Data - Oxycodone: Samples containing greater than 100 ng/mL oxycodone or other cross-reacting compounds are reported as positive. False positive and false negative results are possible. Confirmatory testing required for definitive results. Current Interpretive Data was last reviewed 2023. Phencyclidine, ur Not Detected CutOff 25 ng/mL AURELIO RUSH (SERGIO) Comment: Interpretive Data - Phencyclidine: Samples containing greater than 25 ng/mL phencyclidine or other cross-reacting compounds are reported as positive. False positive and false negative results are possible. Confirmatory testing required for definitive results. Current Interpretive Data was last reviewed 2023. Urine Creatinine 18 mg/dL ETHEL RUSH (SERGIO) Comment: Interpretive Data Urine Creatinine: < 10 mg/dL is extremely dilute = or > 10 but < 20 mg/dL is dilute = or > 20 mg/dL is normal Current Interpretive Data was last revised on 2017. Urine 03/31/2025 5:29 PM CDT 03/31/2025 5:31 PM CDT Narrative AURELIO RUSH (S[place]GIO) - 03/31/2025 5:47 PM CDT Drug Screening is performed by immunoassay for medical purposes. If positive, confirmation testing will be performed for amphetamines, benzodiazepines, cocaine, fentanyl, methadone, opiates, oxycodone, and phencyclidine. us Kee Velasquez MD LAB URINE ORDERABLES Final R esult AURELIO RUSH (ANCHOR) 1 [facility] [place] [address] * (ABNORMAL) Amphetamine Confirmation, Urine (03/31/2025 5:29 PM CDT) Amphetamine Conf, Ur Confirmed Positive(A) CutOff 150ng/mL Comment:Testing performed by : [facility], [address] [place]., [address] Methamphetamine Conf, Ur Confirmed Positive(A) CutOff 150ng/mL [facility] ([place]) Comment:Testing performed by : [facility], [address] [place]., [address] MDA Conf, Ur Does Not Confirm CutOff 150ng/mL [facility] ([place]) Comment:Testing performed by : [facility], [address] [place]., [address] MDMA Conf, Ur Does Not Confirm CutOff 50 ng/mL [facility] ([place]) Comment:Testing performed by : [facility], [address] [place]., [address] MDEA Conf, Ur Does Not Confirm CutOff 150ng/mL [facility] ([place]) Comment:Testing performed by : [facility], [address] [place]., [address] MBDB Conf, Ur Does Not Confirm CutOff 150ng/mL [facility] ([place]) Comment: Interpretive Data This test detects the presence or absence of drug compounds using LC Tandem mass spectrometry. While this test is highly specific, false positive and false negative results may occur in very rare circumstances. Contact the laboratory for consultation, if needed. Performance characteristics were determined by the [facility] in a manner consistent with CLIA requirement and has not been cleared or approved by the U.S. Food and Drug Administration. Current interpretive data was last revised on 2020. Testing performed by: [facility], [address] [place]., [address] Urine 03/31/2025 5:29 PM CDT 03/31/2025 8:20 PM CDT Kee Velasquez MD LAB URINE ORDERABLES Final R esult AURELIO RUSH (SERGIO) 1 [facility] [place] [address] * (ABNORMAL) POCT glucose (03/31/2025 5:13 PM CDT) Glucose, POC 454(C) 70 - 199 mg/dL Comment:Glu2: RN/MD Notified Blood 03/31/2025 5:13 PM CDT 03/31/2025 5:13 PM CDT us Grace Maynard MD LAB POCT ORDERABLES - DEVICE Final Result Performing Organization Address [facility]/ZIP Co de Phone Number AURELIO RUSH (ANCHOR) 1 [facility] [place] [address] * (ABNORMAL) POCT glucose (03/31/2025 3:10 PM CDT) Glucose, POC 413(H) 70 - 199 mg/dL Blood 03/31/2025 3:10 PM CDT 03/31/2025 3:10 PM CDT us Grace Maynard MD LAB POCT ORDERABLES - DEVICE Final Result Performing Organization Address City/[facility]/ZIP Co de Phone Number AURELIO RUSH (ANCHOR) 1 [facility] [place] [address] * (ABNORMAL) POCT glucose (03/31/2025 12:15 PM CDT) Glucose, POC 234(H) 70 - 199 mg/dL Blood 03/31/2025 12:1 5 PM CDT 03/31/2025 12:15 PM CDT us Grace Maynard MD LAB POCT ORDERABLES - DEVICE Final Result AURELIO RUSH (ANCHOR) 1 [facility] [place] [address] * (ABNORMAL) POCT glucose (03/31/2025 11:38 AM CDT) Glucose, POC 229(H) 70 - 199 mg/dL Blood 03/31/2025 11:3 8 AM CDT 03/31/2025 11:38 AM CDT Grace Maynard MD LAB POCT ORDERABLES - DEVICE Final Result AURELIO RUSH (ANCHOR) 1 [facility] [place] [address] * POCT glucose (03/31/2025 8:00 AM CDT) Glucose, POC 115 70 - 199 mg/dL Blood 03/31/2025 8:00 AM CDT 03/31/2025 8:00 AM CDT Grace Maynard MD LAB POCT ORDERABLES - DEVICE Final Result AURELIO RUSH (ANCHOR) 1 [facility] [place] [address] * eGFR (03/31/2025 2:27 AM CDT) eGFR >90 >=60 mL/min/1. 73 m2 Comment: Interpretive Data Reference Interval Normal >/= 90 mL/min/1.73m2 Mildly decreased* 60 - 89 mL/min/1.73m2 Mildly to moderately decreased 45 - 59 mL/min/1.73m2 Moderately to severely decreased 30 - 44 mL/min/1.73m2 Severely decreased 15 - 29 mL/min/1.73m2 Kidney Failure < 15 mL/min/1.73m2 *Relative to young adult level Estimated glomerular filtration rate is determined by the 2020 CKD-EPI equation recommended by the National Kidney Foundation (A Unifying Approach to GFR Estimation: Recommendations of the NKF-ASK Task Force on Reassessing the Inclusion of Race in Diagnosing Kidney Disease, MICAELASN 2020). The CKD-EPI equation should not be used for patients with unstable renal function and has not been validated in children and those over 70. Current interpretive data was last reviewed 2021. Blood 03/31/2025 2:27 AM CDT 03/31/2025 2:39 AM CDT us Valeriano Pereira MD LAB BLOOD ORDERABLES Final Resu lt [facility] ([place]) 1 [facility] [place] [address] * (ABNORMAL) Differential, auto (03/31/2025 2:27 AM CDT) Neutrophil abs 9.57(H) 1.50 - 6.50 K/cumm Imm gran abs 0.09 0.00 - 0.10 K/cumm [facility] ([place]) Lymphocyte abs 2.94 0.80 - 3.30 K/cumm [facility] ([place]) Monocyte abs 0.96(H) 0.20 - 0.80 K/cumm [facility] ([place]) Eosinophil abs 0.02 0.00 - 0.50 K/cumm [facility] ([place]) Basophil abs 0.04 0.00 - 0.10 K/cumm [facility] ([place]) Neutrophil pct 70.3 % [facility] ([place]) Comment: Interpretive Data Percent cell count reference ranges are not reported, since discordance with absolute values may lead to misinterpretation of CBC data. Current Interpretive Data was last revised on 2017. Imm gran pct 0.7 % [facility] ([place]) Comment: Interpretive Data Percent cell count reference ranges are not reported, since discordance with absolute values may lead to misinterpretation of CBC data. Current Interpretive Data was last revised on 2017. Lymphocyte pct 21.6 % [facility] ([place]) Comment: Interpretive Data Percent cell count reference ranges are not reported, since discordance with absolute values may lead to misinterpretation of CBC data. Current Interpretive Data was last revised on 2017. Monocyte pct 7.0 % [facility] ([place]) Comment: Interpretive Data Percent cell count reference ranges are not reported, since discordance with absolute values may lead to misinterpretation of CBC data. Current Interpretive Data was last revised on 2017. Eosinophil pct 0.1 % [facility] ([place]) Comment: Interpretive Data Percent cell count reference ranges are not reported, since discordance with absolute values may lead to misinterpretation of CBC data. Current Interpretive Data was last revised on 2017. Basophil pct 0.3 % [facility] ([place]) Comment: Interpretive Data Percent cell count reference ranges are not reported, since discordance with absolute values may lead to misinterpretation of CBC data. Current Interpretive Data was last revised on 2017. Blood 03/31/2025 2:27 AM CDT 03/31/2025 2:39 AM CDT us Valeriano Pereira MD LAB BLOOD ORDERABLES Final Resu lt [facility] ([place]) 1 [facility] [place] [address] * (ABNORMAL) CBC with auto differential (03/31/2025 2:27 AM CDT) WBC 13.62(H) 3.80 - 9.90 K/cumm Hgb 13.3 11.9 - 15.5 g/dL [facility] ([place]) Hct 39.4 35.6 - 45.5 % [facility] ([place]) Plt 222 150 - 400 K/cumm [facility] ([place]) MPV 10.2 9.1 - 12.3 fL [facility] ([place]) RBC 4.16 3.90 - 5.20 M/cumm [facility] ([place]) MCV 94.7 81.3 - 96.4 fL [facility] ([place]) MCH 32.0 27.1 - 33.3 pg [facility] ([place]) MCHC 33.8 32.3 - 35.7 g/dL [facility] ([place]) RDW CV 13.0 11.1 - 14.9 % [facility] ([place]) RDW SD 44.9 35.7 - 48.1 fL [facility] ([place]) NRBC abs 0.00 0.00 - 0.01 K/cumm [facility] ([place]) Blood 03/31/2025 2:27 AM CDT 03/31/2025 2:39 AM CDT us Valeriano Pereira MD LAB BLOOD ORDERABLES Final Resu lt Performing Organization Address [facility] de Phone Number AURELIO [facility] (ANCHOR) 1 [facility] [place] [address] * (ABNORMAL) Hemoglobin A1c (03/31/2025 2:27 AM CDT) Hgb A1C 9.8(H) 4.0 - 5.6 % Estimated Average Glucose 235 mg/dL [facility] (AN[facility]) Comment: The ADA recommends reporting an estimated Average Glucose (eAG) with all Hemoglobin A1c results using the equation derived from a study of 507 normal and diabetic adults. Minority populations were underrepresented and children were not included. (Diabetes Care 31:9548-3518, 2008). The eAG is not equivalent to a fasting glucose. Blood 03/31/2025 2:27 AM CDT 03/31/2025 2:39 AM CDT us Grace Maynard MD LAB BLOOD ORDERABLES Final Result Performing Organization Address [facility] Co de Phone Number [facility] 1 [facility] [place] [address] * (ABNORMAL) Comprehensive metabolic panel (03/31/2025 2:27 AM CDT) Sodium 138 135 - 145 mmol/L Potassium, pl 4.3 3.3 - 4.9 mmol/L [facility] (SERGIO) Chloride 102 97 - 110 mmol/L [facility] ([place]) CO2 26 22 - 32 mmol/L [facility] ([place]) Anion gap 10 2 - 15 mmol/L [facility] ([place]) BUN 21 6 - 25 mg/dL [facility] ([place]) Creatinine 0.62 0.60 - 1.10 mg/dL [facility] ([place]IO) Glucose 307(H) 70 - 199 mg/dL [facility] (SREGIO) Comment: Interpretive Data Fasting glucose >/= 126 mg/dl is diagnostic for diabetes. Fasting is defined as no caloric intake for at least 8 hours. Fasting glucose between 100 mg/dl to 125 mg/dl is diagnostic of prediabetes. In a patient with classic symptoms of hyperglycemia or hyperglycemic crisis, a random glucose >/= 200 mg/dl is diagnostic for diabetes. In the absence of unequivocal hyperglycemia, results should be confirmed by repeat testing. The classification and Diagnosis of Diabetes Diabetes Care 202; 46: S19-S40. Current interpretive data was last revised 2022. Calcium 8.8 8.5 - 10.3 mg/dL [facility] ([place]IO) Bilirubin, total 0.2 0.1 - 1.2 mg/dL [facility] ([facility] Protein, pl 6.7 6.5 - 8.5 g/dL [facility] ([place]) Albumin 3.8 3.5 - 5.0 g/dL [facility] ([place]) Alk phos 129 40 - 130 Units/L [facility] ([place]) ALT 15 7 - 45 Units/L [facility] ([place]) AST 16 10 - 45 Units/L [facility] ([place]) Blood 03/31/2025 2:27 AM CDT 03/31/2025 2:39 AM CDT us Valeriano Pereira MD LAB BLOOD ORDERABLES Final Resu lt [facility] (SERGIO) 1 [facility] Department of Laboratories [place], [place] [id number] * (ABNORMAL) POCT glucose (03/31/2025 2:03 AM CDT) Glucose, POC 281(H) 70 - 199 mg/dL Blood 03/31/2025 2:03 AM CDT 03/31/2025 2:03 AM CDT Grace Maynard MD LAB POCT ORDERABLES - DEVICE Final Result Performing Organization Address [facility] Co de Phone Number [facility] (ANCHOR) 1 [facility] [place] [address] * (ABNORMAL) POCT glucose (03/30/2025 8:05 PM CDT) Glucose, POC 288(H) 70 - 199 mg/dL Blood 03/30/2025 8:05 PM CDT 03/30/2025 8:05 PM CDT Grace Maynard MD LAB POCT ORDERABLES - DEVICE Final Result Performing Organization Address [facility] Co de Phone Number [facility] (ANCHOR) 1 [facility] [place] [address] * (ABNORMAL) POCT glucose (03/30/2025 4:50 PM CDT) Glucose, POC 418(H) 70 - 199 mg/dL Blood 03/30/2025 4:50 PM CDT 03/30/2025 4:50 PM CDT Grace Maynard MD LAB POCT ORDERABLES - DEVICE Final Result Performing Organization Address [facility] Co de Phone Number [facility] (ANCHOR) 1 [facility] [place] [address] * (ABNORMAL) POCT glucose (03/30/2025 3:01 PM CDT) Glucose, POC 417(H) 70 - 199 mg/dL Blood 03/30/2025 3:01 PM CDT 03/30/2025 3:01 PM CDT Grace Maynard MD LAB POCT ORDERABLES - DEVICE Final Result Performing Organization Address [facility]/ZIP Co de Phone Number [facility] (ANCHOR) [address] [place] [phone] * (ABNORMAL) POCT glucose (03/30/2025 12:28 PM CDT) Glucose, POC 328(H) 70 - 199 mg/dL Blood 03/30/2025 12:2 8 PM CDT 03/30/2025 12:28 PM CDT us Triston Lynn Jr., MD LAB POCT ORDERABLES - DEVICE Final Result Performing Organization Address [facility] Co de Phone Number AURELIO GrimesANCHOR) [address] [place] [phone] * TRANSTHORACIC ECHO (TTE) COMPLETE W DOPPLER/CF W CONTRAST (03/30/2025 8:15 AM CDT) [facility] Estimated EF 65-70 % CONS SCIMAGE Anatomical Region Laterality Modality Ultrasound 03/30/2025 8:03 AM CDT Narrative 03/30/2025 11:22 AM CDT [address] [address] Echocardiogram Report Patient Name: MICHELLE LINARES : 1970 Study Date: 03/30/2025 8:03:16 AM Sex: F Tech: AMY Location: [id number] Ref Provider: VALERIANO PEREIRA Height(Cm): BSA: Weight(Kg): Quality: Definity contrast agent used to enhance endocardial border definition Order Provider: VALERIANO PEREIRA PROCEDURES: Echocardiographic Report: Transthoracic echocardiogram with complete 2D, M-Mode, color Doppler examination and contrast. INDICATIONS: Chest Pain. MEASUREMENTS: 2D/MM Value Range Doppler Value Range EF Teich MM 69.0 % [ 54.0 - 74.0 ] CHAPIS Vmax 2.54 cm2 Estimated EF 65-70 % AV Mean PG 3 mmHg LVIDd MM 4.10 cm [ 3.80 - 5.20 ] AV Peak Landon 1.18 m/s [ 1.00 - 1.70 ] LVIDs MM 2.60 cm [ 2.20 - 3.50 ] AV VTI 21.86 cm LVPWd MM 1.20 cm [ 0.60 - 0.90 ] LVOT Diam 2.22 cm IVSd MM 1.40 cm [ 0.60 - 0.90 ] LVOT Peak Landon 0.77 m/s [ 0.70 - 1.10 ] LVOT VTI 17.17 cm MV E Peak Landon 0.54 m/s [ 0.60 - 1.30 ] MV A Peak Landon 0.69 m/s [ 1.00 - 1.20 ] MV Mean PG 1 mmHg MV PHT 43 msec [ 20 - 100 ] MVA 5.10 MV Decel Time 150 msec [ 104 - 258 ] RVSP 8.00 mmHg [ 10.00 - 36.00 ] E` 0.08 m/s E/E` 6.41 [ <= 10.00 ] PA Pressure 8.00 mmHg [ 10.00 - 36.00 ] 2D/MM Value Range Doppler Value Range - FINDINGS: Atrial Septum: Normal atrial septum. Left Ventricle: Normal left ventricular systolic function with no focal wall motion abnormalities. Normal left ventricular size. Optison contrast agent used to visually enhance endocardial wall motion and contractility. Impaired diastolic relaxation Grade I. Ejection Fraction is estimated to be 65-70 %. Left Atrium: The left atrium is normal in size. Right Ventricle: Normal right ventricular size. Normal right ventricular systolic function. Right Atrium: The right atrium is normal in size. Aortic Valve: Normal structure of the aortic valve. Mitral Valve: Normal structure of the mitral valve. Pulmonic Valve: Normal structure of the pulmonic valve. Tricuspid Valve: Normal right ventricular systolic pressure. Estimated peak RVSP is 20 mmHg. Mild tricuspid regurgitation. Pericardium: Normal pericardium with no significant pericardial effusion. Aorta: Normal aortic root. Sinus of Valsalva is normal. Aortic arch is normal. Descending aorta is normal. IVC: Normal size and normal respiratory collapse consistent with normal right atrial pressure (<5 mmHg). Pulmonary Artery: Normal pulmonary artery size. CONCLUSIONS: Probably Normal left ventricular systolic function with no focal wall motion abnormalities. Normal left ventricular size. Impaired diastolic relaxation Grade I. Ejection Fraction is estimated to be 65-70 %. Normal right ventricular systolic pressure. Estimated peak RVSP is 20 mmHg. Mild tricuspid regurgitation. Technically difficult study with suboptimal views. Optison contrast agent used to visually enhance endocardial wall motion and contractility. Electronically Signed By: Joby Marie MD 03/30/2025 11:21:27 AM CDT Procedure Note Joby Marie MD - 03/30/[address] [address] Echocardiogram Report Patient Name: MICHELLE LINARES : 1970 Study Date: 03/30/2025 8:03:16 AM Sex: F Tech: AMY Location: [id number] Ref Provider: VALERIANO PEREIRA Height(Cm): BSA: Weight(Kg): Quality: Definity contrast agent used to enhance endocardial borderdefinition Order Provider: VALERIANO PEREIRA PROCEDURES: Echocardiographic Report: Transthoracic echocardiogram with complete 2D, M-Mode, color Dopplerexamination and contrast. INDICATIONS: Chest Pain. MEASUREMENTS: 2D/MM Value Range Doppler ValueRange EF Teich MM 69.0 % [ 54.0 - 74.0 ] CHAPIS Vmax 2.54 cm2 Estimated EF 65-70 % AV Mean PG 3 mmHg LVIDd MM 4.10 cm [ 3.80 - 5.20 ] AV Peak Landon 1.18 m/s[ 1.00 - 1.70 ] LVIDs MM 2.60 cm [ 2.20 - 3.50 ] AV VTI 21.86 cm LVPWd MM 1.20 cm [ 0.60 - 0.90 ] LVOT Diam 2.22 cm IVSd MM 1.40 cm [ 0.60 - 0.90 ] LVOT Peak Landon 0.77 m/s[ 0.70 - 1.10 ] LVOT VTI 17.17 cm MV E Peak Landon 0.54 m/s [ 0.60 - 1.30 ] MV A Peak Landon 0.69 m/s [ 1.00 - 1.20 ] MV Mean PG 1 mmHg MV PHT 43 msec [ 20 - 100 ] MVA 5.10 MV Decel Time 150 msec [ 104 - 258 ] RVSP 8.00 mmHg [ 10.00 - 36.00 ] E` 0.08 m/s E/E` 6.41 [ <= 10.00 ] PA Pressure 8.00 mmHg [ 10.00 - 36.00 ] 2D/MM Value Range Doppler ValueRange - FINDINGS: Atrial Septum: Normal atrial septum. Left Ventricle: Normal left ventricular systolic function with no focal wall motionabnormalities. Normal left ventricular size. Optison contrast agent used to visually enhanceendocardial wall motion and contractility. Impaired diastolic relaxation Grade I. EjectionFraction is estimated to be 65-70 %. Left Atrium: The left atrium is normal in size. Right Ventricle: Normal right ventricular size. Normal right ventricular systolicfunction. Right Atrium: The right atrium is normal in size. Aortic Valve: Normal structure of the aortic valve. Mitral Valve: Normal structure of the mitral valve. Pulmonic Valve: Normal structure of the pulmonic valve. Tricuspid Valve: Normal right ventricular systolic pressure. Estimated peak RVSP is 20mmHg. Mild tricuspid regurgitation. Pericardium: Normal pericardium with no significant pericardial effusion. Aorta: Normal aortic root. Sinus of Valsalva is normal. Aortic arch is normal.Descending aorta is normal. IVC: Normal size and normal respiratory collapse consistent with normal rightatrial pressure (<5 mmHg). Pulmonary Artery: Normal pulmonary artery size. CONCLUSIONS: Probably Normal left ventricular systolic function with no focal wallmotion abnormalities. Normal left ventricular size. Impaired diastolic relaxationGrade I. Ejection Fraction is estimated to be 65-70 %. Normal right ventricular systolic pressure. Estimated peak RVSP is 20mmHg. Mild tricuspid regurgitation. Technically difficult study with suboptimal views. Optison contrast agentused to visually enhance endocardial wall motion and contractility. Electronically Signed By: Joby Marie MD 03/30/2025 11:21:27 AM CDT us Valeriano Pereira MD CV ECHO PROCEDURES Final Result * (ABNORMAL) POCT glucose (03/30/2025 7:50 AM CDT) [facility] Glucose, POC 200(H) 70 - 199 mg/dL Blood 03/30/2025 7:50 AM CDT 03/30/2025 7:50 AM CDT Triston Lynn Jr., MD LAB POCT ORDERABLES - DEVICE Final Result [facility] (ANCHOR) 1 [facility] [place] [address] * (ABNORMAL) POCT glucose (03/30/2025 3:15 AM CDT) [facility] Glucose, POC 308(H) 70 - 199 mg/dL Blood 03/30/2025 3:15 AM CDT 03/30/2025 3:15 AM CDT us Triston Lynn Jr., MD LAB POCT ORDERABLES - DEVICE Final Result [facility] (ANCHOR) 1 [facility] [place] [address] * eGFR (03/30/2025 12:26 AM CDT) [facility] eGFR >90 >=60 mL/min/1. 73 m2 Comment: Interpretive Data Reference Interval Normal >/= 90 mL/min/1.73m2 Mildly decreased* 60 - 89 mL/min/1.73m2 Mildly to moderately decreased 45 - 59 mL/min/1.73m2 Moderately to severely decreased 30 - 44 mL/min/1.73m2 Severely decreased 15 - 29 mL/min/1.73m2 Kidney Failure < 15 mL/min/1.73m2 *Relative to young adult level Estimated glomerular filtration rate is determined by the 2020 CKD-EPI equation recommended by the National Kidney Foundation (A Unifying Approach to GFR Estimation: Recommendations of the NKF-ASK Task Force on Reassessing the Inclusion of Race in Diagnosing Kidney Disease, JASN 2020). The CKD-EPI equation should not be used for patients with unstable renal function and has not been validated in children and those over 70. Current interpretive data was last reviewed 2021. Blood 03/30/2025 12:2 6 AM CDT 03/30/2025 12:29 AM CDT us Valeriano Pereira MD LAB BLOOD ORDERABLES Final Resu lt [facility] ([facility]) 1 [facility] [place] [address] * (ABNORMAL) Differential, auto (03/30/2025 12:26 AM CDT) Neutrophil abs 9.19(H) 1.50 - 6.50 K/cumm Imm gran abs 0.07 0.00 - 0.10 K/cumm [facility] ([place]) Lymphocyte abs 1.03 0.80 - 3.30 K/cumm [facility] ([place]) Monocyte abs 0.16(L) 0.20 - 0.80 K/cumm [facility] ([place]) Eosinophil abs 0.00 0.00 - 0.50 K/cumm [facility] ([place]) Basophil abs 0.02 0.00 - 0.10 K/cumm [facility] ([place]) Neutrophil pct 87.8 % [facility] ([place]) Comment: Interpretive Data Percent cell count reference ranges are not reported, since discordance with absolute values may lead to misinterpretation of CBC data. Current Interpretive Data was last revised on 2017. Imm gran pct 0.7 % [facility] ([place]) Comment: Interpretive Data Percent cell count reference ranges are not reported, since discordance with absolute values may lead to misinterpretation of CBC data. Current Interpretive Data was last revised on 2017. Lymphocyte pct 9.8 % [facility] ([place]) Comment: Interpretive Data Percent cell count reference ranges are not reported, since discordance with absolute values may lead to misinterpretation of CBC data. Current Interpretive Data was last revised on 2017. Monocyte pct 1.5 % [facility] ([place]) Comment: Interpretive Data Percent cell count reference ranges are not reported, since discordance with absolute values may lead to misinterpretation of CBC data. Current Interpretive Data was last revised on 2017. Eosinophil pct 0.0 % [facility] ([place]) Comment: Interpretive Data Percent cell count reference ranges are not reported, since discordance with absolute values may lead to misinterpretation of CBC data. Current Interpretive Data was last revised on 2017. Basophil pct 0.2 % [facility] ([place]) Comment: Interpretive Data Percent cell count reference ranges are not reported, since discordance with absolute values may lead to misinterpretation of CBC data. Current Interpretive Data was last revised on 2017. Blood 03/30/2025 12:2 6 AM CDT 03/30/2025 12:29 AM CDT us Valeriano Pereira MD LAB BLOOD ORDERABLES Final Resu lt [facility] (ANCHOR) 1 [facility] [place] [address] * Pro B-type natriuretic peptide (03/30/2025 12:26 AM CDT) NT-proBNP <36 <=300 pg/mL Comment: Interpretive Comments: A. Dyspnea in Acute Care Setting All Ages: < 300 pg/ml, acute heart failure unlikely. < 50 yrs: 300 - 450 pg/ml, further investigation warranted. > 450 pg/ml, acute heart failure likely. 50 - 74 yrs: 300 - 900 pg/ml, further investigation warranted. > 900 pg/ml, acute heart failure likely . > or = 75 yrs: 450 - 1800 pg/ml, further investigation warranted. > 1800 pg/ml, acute heart failure likely. B. Non-acute Setting < 75 yrs < 125 pg/ml, rules out heart failure. > or = 125 pg/ml, further investigation warranted. > or = 75 yrs < 450 pg/ml, rules out heart failure. > or = 450 pg/ml, further investigation warranted. - Knowledge of each individual patient's NT-proBNP range may be more useful than using similar cut-points for every patient. Please note that marked elevations in NT-proBNP levels may be observed in state other than Left Ventricular Congestive Failure, including: acute coronary syndromes, right heart strain/failure (including pulmonary embolism and cor pulmonale), critical illness, renal failure, as well as advanced age. - References: 1. Svetlana POP et.al. Eur Heart J. 2006:27:330-337. 2. Nolan RW, Leah APONTE. J. AM Maritza Cardiol: Cardiovasc Imag. 2009;2: 216- 225. Interpretive Data Last Revised Date: 2018. Blood 03/30/2025 12:2 6 AM CDT 03/30/2025 12:29 AM CDT us Valeriano Pereira MD LAB BLOOD ORDERABLES Final Resu lt [facility] (ANCHOR) 1 [facility] [place] [address] * (ABNORMAL) CBC with auto differential (03/30/2025 12:26 AM CDT) WBC 10.47(H) 3.80 - 9.90 K/cumm Hgb 14.1 11.9 - 15.5 g/dL [facility] ([place]) Hct 41.4 35.6 - 45.5 % [facility] ([place]) Plt 239 150 - 400 K/cumm [facility] ([place]) MPV 9.6 9.1 - 12.3 fL [facility] ([place]) RBC 4.40 3.90 - 5.20 M/cumm [facility] ([place]) MCV 94.1 81.3 - 96.4 fL [facility] MCH 32.0 27.1 - 33.3 pg [facility] ([place]) MCHC 34.1 32.3 - 35.7 g/dL [facility] ([place]) RDW CV 12.1 11.1 - 14.9 % [facility] RDW SD 42.5 35.7 - 48.1 fL [facility] NRBC abs 0.00 0.00 - 0.01 K/cumm [facility] ([place]IO) Blood 03/30/2025 12:2 6 AM CDT 03/30/2025 12:29 AM CDT us Valeriano Pereira MD LAB BLOOD ORDERABLES Final Resu lt [facility] (ANCHOR) 1 [facility] [place] [address] * (ABNORMAL) Comprehensive metabolic panel (03/30/2025 12:26 AM CDT) Sodium 135 135 - 145 mmol/L Potassium, pl 4.2 3.3 - 4.9 mmol/L [facility] ([place] Chloride 100 97 - 110 mmol/L [facility]) CO2 23 22 - 32 mmol/L [facility] ([facility] Anion gap 12 2 - 15 mmol/L [facility] ([place] BUN 15 6 - 25 mg/dL [facility] ([facility] Creatinine 0.64 0.60 - 1.10 mg/dL [facility] ([place] Glucose 311(H) 70 - 199 mg/dL [facility] ([place]) Comment: Interpretive Data Fasting glucose >/= 126 mg/dl is diagnostic for diabetes. Fasting is defined as no caloric intake for at least 8 hours. Fasting glucose between 100 mg/dl to 125 mg/dl is diagnostic of prediabetes. In a patient with classic symptoms of hyperglycemia or hyperglycemic crisis, a random glucose >/= 200 mg/dl is diagnostic for diabetes. In the absence of unequivocal hyperglycemia, results should be confirmed by repeat testing. The classification and Diagnosis of Diabetes Diabetes Care 2021; 46: S19-S40. Current interpretive data was last revised 2022. Calcium 9.2 8.5 - 10.3 mg/dL [facility] ([place]) Bilirubin, total <0.2 0.1 - 1.2 mg/dL [facility] ([place]) Protein, pl 6.6 6.5 - 8.5 g/dL [facility] ([place]) Albumin 3.7 3.5 - 5.0 g/dL [facility] ([place]) Alk phos 113 40 - 130 Units/L [facility] ([place]) ALT 17 7 - 45 Units/L [facility] ([place]) AST 16 10 - 45 Units/L [facility] ([place]) Blood 03/30/2025 12:2 6 AM CDT 03/30/2025 12:29 AM CDT us Valeriano Pereira MD LAB BLOOD ORDERABLES Final Resu lt [facility] (SERGIO) 1 [facility] [address] * (ABNORMAL) POCT glucose (03/30/2025 12:24 AM CDT) Glucose, POC 284(H) 70 - 199 mg/dL Blood 03/30/2025 12:2 4 AM CDT 03/30/2025 12:24 AM CDT us Triston Lynn Jr., MD LAB POCT ORDERABLES - DEVICE Final Result [facility] (ANCHOR) 1 [facility] [place] [address] * Procalcitonin (03/30/2025 12:20 AM CDT) Procalcitonin <0.05 <=0.25 ng/mL Comment:Testing performed by : [facility], [address] [place] [address]., [id number] Blood 03/30/2025 12:2 0 AM CDT 03/30/2025 5:59 PM CDT us Valeriano Pereira MD LAB BLOOD ORDERABLES Final Resu lt Performing Organization Address [facility]/ZIP Co de Phone Number [facility] (ANCHOR) 1 [facility] [address] [place] [address] * (ABNORMAL) POCT glucose (03/29/2025 10:23 PM CDT) Glucose, POC 331(H) 70 - 199 mg/dL Blood 03/29/2025 10:2 3 PM CDT 03/29/2025 10:23 PM CDT us Triston Lynn Jr., MD LAB POCT ORDERABLES - DEVICE Final Result Performing Organization Address [facility] Co de Phone Number [facility] (ANCHOR) 1 [facility] [place] [address] * (ABNORMAL) POCT glucose (03/29/2025 9:17 PM CDT) Glucose, POC 401(H) 70 - 199 mg/dL Blood 03/29/2025 9:17 PM CDT 03/29/2025 9:17 PM CDT Triston Lynn Jr., MD LAB POCT ORDERABLES - DEVICE Final Result Performing Organization Address City/[facility]/ZIP Co de Phone Number [facility] (ANCHOR) 1 [facility] [address] [place] [address] * Troponin T high-sensitivity 6-hour (03/29/2025 8:35 PM CDT) Trop T hs <6 <=14 ng/L Comment: Interpretive Data For further hscTnT resources including the diagnostic algorithm and an aid in interpretation, copy and paste this link: https://nrl.testcatalog.org/show/hsTrop Current Interpretive Data last revised 2020. Trop T hs delta 0 ng/L [facility] ([place]) Trop T hs interp Insignificant [facility] ([place]) Blood 03/29/2025 8:35 PM CDT 03/29/2025 8:36 PM CDT Alina Whyte NP LAB BLOOD ORDERABLES Final Resul t [facility] (ANCHOR) 1 [facility] Department [place] [address] * (ABNORMAL) POCT glucose (03/29/2025 8:03 PM CDT) Glucose, POC 463(C) 70 - 199 mg/dL Comment:Glu2: RN/ Notified Blood 03/29/2025 8:03 PM CDT 03/29/2025 8:03 PM CDT Triston Lynn Jr., MD LAB POCT ORDERABLES - DEVICE Final Result Performing Organization Address City/[facility]/ZIP Co de Phone Number [facility] (ANCHOR) 1 [facility] [place] [address] * Troponin T high-sensitivity 4-hour (03/29/2025 5:57 PM CDT) Trop T hs <6 <=14 ng/L Comment: Interpretive Data For further hscTnT resources including the diagnostic algorithm and an aid in interpretation, copy and paste this link: https://nrl.testcatDynis.org/show/hsTrop Current Interpretive Data last revised 2020. Trop T hs delta 0 ng/L [facility] ([place]) Trop T hs interp Insignificant [facility] ([place]) Blood 03/29/2025 5:57 PM CDT 03/29/2025 5:58 PM CDT Alina Whyte NP LAB BLOOD ORDERABLES Final Resul t [facility] (ANCHOR) 1 [facility] [place] [address] * (ABNORMAL) POCT glucose (03/29/2025 5:52 PM CDT) Glucose, POC 349(H) 70 - 199 mg/dL Blood 03/29/2025 5:52 PM CDT 03/29/2025 5:52 PM CDT us Triston Lynn Jr., MD LAB POCT ORDERABLES - DEVICE Final Result Performing Organization Address City/[facility]/ZIP Co de Phone Number [facility] (ANCHOR) 1 [facility] [place] [address] * (ABNORMAL) POCT glucose (03/29/2025 5:04 PM CDT) Glucose, POC 400(H) 70 - 199 mg/dL Blood 03/29/2025 5:04 PM CDT 03/29/2025 5:04 PM CDT us Triston Lynn Jr., MD LAB POCT ORDERABLES - DEVICE Final Result Performing Organization Address City/[facility]/ZIP Co de Phone Number [facility] (ANCHOR) 1 [facility] [place] [address] * Troponin T high-sensitivity 2-hour (03/29/2025 4:18 PM CDT) Trop T hs <6 <=14 ng/L Comment: Interpretive Data For further hscTnT resources including the diagnostic algorithm and an aid in interpretation, copy and paste this link: https://nrl.testcatalog.org/show/hsTrop Current Interpretive Data last revised 2020. Trop T hs delta 0 ng/L [facility] (ANCHOR) Trop T hs interp Insignificant [facility] (ANCHOR) Blood 03/29/2025 4:18 PM CDT 03/29/2025 4:23 PM CDT Alina Whyte [employer]IANCE [employer]STER LAB BLOOD ORDERABLES Final Resul t [facility] RUSH ANCHOR) 1 [facility] [place] [address] * Troponin T high-sensitivity series (baseline, 2hr, 4hr, 6hr) (03/29/2025 2:07 PM CDT) Trop T hs 6 <=14 ng/L Comment: Interpretive Data For further hscTnT resources including the diagnostic algorithm and an aid in interpretation, copy and paste this link: https://nrl.testcatalog.org/show/hsTrop Current Interpretive Data last revised 2020. Blood 03/29/2025 2:07 PM CDT 03/29/2025 2:11 PM CDT Alina Whyte NP LAB BLOOD ORDERABLES Final Resul t [facility] (ANCHOR) 1 [facility] [place] [address] * eGFR (03/29/2025 2:07 PM CDT) eGFR >90 >=60 mL/min/1. 73 m2 Comment: Interpretive Data Reference Interval Normal >/= 90 mL/min/1.73m2 Mildly decreased* 60 - 89 mL/min/1.73m2 Mildly to moderately decreased 45 - 59 mL/min/1.73m2 Moderately to severely decreased 30 - 44 mL/min/1.73m2 Severely decreased 15 - 29 mL/min/1.73m2 Kidney Failure < 15 mL/min/1.73m2 *Relative to young adult level Estimated glomerular filtration rate is determined by the 2020 CKD-EPI equation recommended by the [employer] (A Unifying Approach to GFR Estimation: Recommendations of the NKF-ASK Task Force on Reassessing the Inclusion of Race in Diagnosing Kidney Disease, JASN 2020). The CKD-EPI equation should not be used for patients with unstable renal function and has not been validated in children and those over 70. Current interpretive data was last reviewed 2021. Blood 03/29/2025 2:07 PM CDT 03/29/2025 2:11 PM CDT us Alina Whyte NP LAB BLOOD ORDERABLES Final Resul t [facility] ([facility]) 1 [facility] [place] [address] * Differential, auto (03/29/2025 2:07 PM CDT) Neutrophil abs 5.05 1.50 - 6.50 K/cumm Imm gran abs 0.05 0.00 - 0.10 K/cumm [facility] ([facility]) Lymphocyte abs 1.76 0.80 - 3.30 K/cumm [facility] ([place]) Monocyte abs 0.50 0.20 - 0.80 K/cumm [facility] ([place]) Eosinophil abs 0.22 0.00 - 0.50 K/cumm [facility] ([place]) Basophil abs 0.04 0.00 - 0.10 K/cumm [facility] ([place]) Neutrophil pct 66.2 % [facility] ([facility]) Comment: Interpretive Data Percent cell count reference ranges are not reported, since discordance with absolute values may lead to misinterpretation of CBC data. Current Interpretive Data was last revised on 2017. Imm gran pct 0.7 % [facility] ([place]) Comment: Interpretive Data Percent cell count reference ranges are not reported, since discordance with absolute values may lead to misinterpretation of CBC data. Current Interpretive Data was last revised on 2017. Lymphocyte pct 23.1 % [facility] ([place]) Comment: Interpretive Data Percent cell count reference ranges are not reported, since discordance with absolute values may lead to misinterpretation of CBC data. Current Interpretive Data was last revised on 2017. Monocyte pct 6.6 % [facility] ([place]) Comment: Interpretive Data Percent cell count reference ranges are not reported, since discordance with absolute values may lead to misinterpretation of CBC data. Current Interpretive Data was last revised on 2017. Eosinophil pct 2.9 % [facility] ([place]) Comment: Interpretive Data Percent cell count reference ranges are not reported, since discordance with absolute values may lead to misinterpretation of CBC data. Current Interpretive Data was last revised on 2017. Basophil pct 0.5 % [facility] ([place]) Comment: Interpretive Data Percent cell count reference ranges are not reported, since discordance with absolute values may lead to misinterpretation of CBC data. Current Interpretive Data was last revised on 2017. Blood 03/29/2025 2:07 PM CDT 03/29/2025 2:27 PM CDT us Alina Whyte NP LAB BLOOD ORDERABLES Final Resul t [facility] ([place]) [facility] [place] [address] * CBC with auto differential (03/29/2025 2:07 PM CDT) WBC 7.62 3.80 - 9.90 K/cumm Hgb 14.9 11.9 - 15.5 g/dL [facility] ([place]) Hct 44.2 35.6 - 45.5 % [facility] ([place]) Plt 234 150 - 400 K/cumm [facility] ([place]) MPV 9.8 9.1 - 12.3 fL [facility] ([place]) RBC 4.60 3.90 - 5.20 M/cumm [facility] ([place]) MCV 96.1 81.3 - 96.4 fL [facility] ([place]) MCH 32.4 27.1 - 33.3 pg [facility] ([place]) MCHC 33.7 32.3 - 35.7 g/dL [facility] ([place]) RDW CV 12.4 11.1 - 14.9 % [facility] ([place]) RDW SD 44.1 35.7 - 48.1 fL [facility] ([place]) NRBC abs 0.00 0.00 - 0.01 K/cumm [facility] ([place]) Blood 03/29/2025 2:07 PM CDT 03/29/2025 2:27 PM CDT us Alina Whyte NP LAB BLOOD ORDERABLES Final [facility]ul t [facility] [place] [address] * (ABNORMAL) Comprehensive metabolic panel (03/29/2025 2:07 PM CDT) Sodium 136 135 - 145 mmol/L Potassium, pl 4.7 3.3 - 4.9 mmol/L [facility] ([place]) Chloride 99 97 - 110 mmol/L [facility]) CO2 29 22 - 32 mmol/L [facility] ([place]) Anion gap 8 2 - 15 mmol/L [facility] ([place]) BUN 13 6 - 25 mg/dL [facility] ([place]) Creatinine 0.76 0.60 - 1.10 mg/dL [facility] ([place]) Glucose 330(H) 70 - 199 mg/dL [facility] ([place]) Comment: Interpretive Data Fasting glucose >/= 126 mg/dl is diagnostic for diabetes. Fasting is defined as no caloric intake for at least 8 hours. Fasting glucose between 100 mg/dl to 125 mg/dl is diagnostic of prediabetes. In a patient with classic symptoms of hyperglycemia or hyperglycemic crisis, a random glucose >/= 200 mg/dl is diagnostic for diabetes. In the absence of unequivocal hyperglycemia, results should be confirmed by repeat testing. The classification and Diagnosis of Diabetes Diabetes Care 2021; 46: S19-S40. Current interpretive data was last revised 2022. Calcium 9.4 8.5 - 10.3 mg/dL [facility] ([place]) Bilirubin, total 0.2 0.1 - 1.2 mg/dL [facility] ([place]) Protein, pl 6.7 6.5 - 8.5 g/dL [facility] ([place]) Albumin 3.8 3.5 - 5.0 g/dL [facility] ([place]) Alk phos 119 40 - 130 Units/L [facility] ([place]) ALT 17 7 - 45 Units/L [facility] ([place]) AST 18 10 - 45 Units/L [facility] ([place]) Comment:Hemolysis present. R esults may be affected. Blood 03/29/2025 2:07 PM CDT 03/29/2025 2:11 PM CDT Alina Whyte NP LAB BLOOD ORDERABLES Final Resul t [facility] ([place]) [facility] Department [place] [address] * XR Chest 1 Vw Portable (If patient hemodynamically UNstable or UNable to ambulate) (03/29/2025 12:33 PM CDT) Anatomical Region Laterality Modality Body, Chest N/A Computed Radiogr aphy 03/29/2025 12:3 6 PM CDT Impressions 03/29/2025 12:36 PM CDT EXAMINATION: XR CHEST 1 VIEW HISTORY: chest pain TECHNIQUE: Single view of the chest COMPARISON: None FINDINGS: No focal opacity, pneumothorax, or pleural effusion. The cardiomediastinal silhouette is within normal limits. No acute osseous abnormality. IMPRESSION: No acute cardiopulmonary findings. Electronically signed by: Dennys Chavez M.D. Narrative 03/29/2025 12:36 PM CDT EXAMINATION: 1 view chest radiograph Procedure Note Dennys Chavez MD - 03/29/2025 EXAMINATION: 1 view chest radiograph IMPRESSION: EXAMINATION: XR CHEST 1 VIEW HISTORY: chest pain TECHNIQUE: Single view of the chest COMPARISON: None FINDINGS: No focal opacity, pneumothorax, or pleural effusion. The cardiomediastinal silhouette is within normal limits. No acute osseous abnormality. IMPRESSION: No acute cardiopulmonary findings. Electronically signed by: Dennys Chavez M.D. Alina Whyte NP IMG XR PROCEDURES Final Result * Influenza A/B, RSV, and COVID-19 PCR Nasopharyngeal (03/29/2025 12:30 PM CDT) COVID-19 RNA Negative Negative Influenza A RNA Negative Negative [facility] ([facility]) Influenza B RNA Negative Negative [facility] ([place]) RSV RNA Negative Negative [facility] Comment: Interpretive data: Testing performed by [facility]. This test is performed using the [employer] Xpert Xpress CoV-2/Flu/RSV plus assay. This is a multiplex, real- time reverse transcriptase PCR assay intended for the qualitative detection of nucleic acid from SARS-CoV-2, influenza A, influenza B, and respiratory syncytial virus. This assay has been cleared by the [place] Food and Drug administration. The performance characteristics have been verified by the [facility]. Results must be considered in the clinical context, and a negative result does not rule out infection. Interpretive Data last revised 2023 Nasopharyngeal 03/29/2025 12 :30 PM CDT 03/30/2025 10:22 AM CDT Narrative [facility] - 03/30/2025 11:01 AM CDT Is the Patient experiencing symptoms consistent with COVID?->Yes Alina Whyte NP LAB MICROBIOLOGY - GENERAL ORDER LOLLY Final Result [facility] ([facility] [place] [address] * ECG 12 lead (03/29/2025 12:21 PM CDT) 03/29/2025 12:2 1 PM CDT Narrative [facility] - 03/30/2025 8:14 AM CDT Vent Rate: 114 bpm RR Interval: 526 msec ID Interval: 168 msec QRS Duration: 93 msec QT Interval: 317 msec QTC Interval: 384 msec P-R-T [place]: 55 - 36 - 55 degrees IMPRESSION: SINUS TACHYCARDIA LOW QRS VOLTAGE IN PRECORDIAL LEADS [QRS DEFLECTION < 1.0 mV IN CHEST LEADS] ABNORMAL RHYTHM ECG Electronically Signed By: Joby Marie MD Amarjitanabelle PattonPato APPLIANCE TESTER ECG ORDERABLES Final Result [facility] from Last 3 Months Insurance [facility] Advance Directives For more information, please contact: [phone] * LIMITED - No CPR (Latest Code Status on File) Date Activated Date Inactivated Comments 03/29/2025 10:21 PM 04/01/2025 1:31 PM Question Answer Comments Provide aggressive medical m anagement before a full cardiopulmonary arrest occurs. Use antibiotics, IV Fluids, and medical treatment unless specifically selected below: No intubation * Full Code Date Activated Date Inactivated Comments 09/14/2024 9:35 AM 09/17/2024 10:40 PM Care Teams Electronic System Engineer Relationship Specialty Start Date End Date Cb Perdue MD PCP - General Family Medicine 01/14/19
[2025-04-29 16:29] VITALS: BP 152/94; PULSE 121; RESP 20; TEMP 37.1; O2SAT 99
--- NOTE | 2025-04-29 16:35 | ED.ABDPAIN ---
HPI - Abdominal Pain General Chief Complaint: Abdominal Pain Stated Complaint: Abdominal Pain/ Right Side and Back Time Seen by Provider: 04/29/25 16:30 Source: patient Mode of arrival: ambulatory Limitations: no limitations History of Present Illness HPI narrative: 55-year-old female presents concern for right lower quadrant abdominal and flank pain that started suddenly this morning. She reports she is nauseated with no appetite but has not vomited. She denies fever, body aches, chills, sweats. Dysuria, frequency, urgency, muscle urine or dark colored urine. She reports she has not been able to urinate much today. She took a laxative today and had a large bowel movement 1 hour ago. MD elicited complaint: abdominal pain Related Data Allergies Allergy/AdvReac Type Severity Reaction Status Date / Time liraglutide (From Victoza) AdvReac Intermediate Headache Verified 04/29/25 16:42 Review of Systems Review of Systems: CONSTITUTIONAL: Denies malaise, chills, sweats, or fever. GASTROINTESTINAL: Reports right lower quadrant abdominal pain, right flank pain, nausea. Denies constipation, vomiting, diarrhea, bloody, or mucous stools. GENITOURINARY: Denies, frequency, urgency, dysuria or hematuria. MUSCULOSKELETAL: Denies back pain, joint pain, or myalgia. All systems reviewed & are unremarkable except as noted in HPI and below PMFSH Past Medical History Medical History COPD (chronic obstructive pulmonary disease) Type 2 diabetes mellitus with hyperglycemia Radiculopathy, cervical region Degenerative disc disease Acute exacerbation of chronic obstructive pulmonary disease Anxiety Depression Bowel perforation Patient had microperforation from ileocecal diverticulitis in 2017 and was treated conservatively without surgery Bowel obstruction Diverticulitis Pneumonia Emphysema of lung Surgical History Surgical History History of endometrial ablation History of ankle surgery right ankle Hx of knee surgery left knee Hx of spinal surgery L3, L4 Hx of tubal ligation Family History Family History Mother Alzheimer's disease Cerebrovascular accident Hypertension Sibling Diabetes mellitus Type 2 Asthma Hypertension Father Renal carcinoma Colon polyp Sibling Diabetes mellitus Hypertension Other Depression Social History Social History (Updated 04/06/25 @ 08:54 by Rosa Cowart, [facility]) Smoking packs per day: 0.5 Smoking cigarettes per day: 10.0 Years smoked: 3 Smoking pack-years: 1.50 Smoking status: Current every day smoker Tobacco type: cigarettes Second hand tobacco smoke exposure: No Alcohol intake: never Substance use: never Substance use type: does not use Lack of Transportation: No Lack of Food: Never True Current Housing: I Have Housing Concerned About Future Housing: No Difficulty Paying Gas/Electric Bills: No Difficulty Paying for Meds: No Currently Unemployed: No Education: High School Diploma/GED Difficulty w/ Childcare or Family Care: No Living arrangements: with family Occupation/Education: occupation 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 There is no relevant family history pertinent to the presenting complaint Exam Narrative: GENERAL: Nontoxic-appearing, well-nourished, and in no acute distress. Appears uncomfortable HEAD: Normocephalic, atraumatic. EYES: PERRLA, sclera clear, and EOMI. ENT: Nares clear. Mucous membranes moist. NECK: Supple. CHEST: No respiratory distress. Speaks in full sentences. HEART: Regular rate and rhythm. SKIN: Warm, dry, no visible rash. NEURO: Alert and oriented x3. PSYCH: Normal mood and affect Course Course Emergency Course: Patient is aware of, understands and agrees to be transferred to the emergency room. Patient agrees to proceed directly to the emergency department. Portions of this record may have been created with voice recognition software Level of Care: Express Care Visit Vital Signs Vital signs: Vital Signs Temperature 98.8 F 04/29/25 16:29 Pulse Rate 121 H 04/29/25 16:29 Respiratory Rate 20 04/29/25 16:29 Blood Pressure 152/94 H 04/29/25 16:29 Pulse Oximetry 99 04/29/25 16:29 Oxygen Delivery Room Air 04/29/25 16:29 Temperature 98.8 F 04/29/25 16:29 Pulse Rate 121 H 04/29/25 16:29 Respiratory Rate 20 04/29/25 16:29 Blood Pressure 152/94 H 04/29/25 16:29 Pulse Oximetry 99 04/29/25 16:29 Oxygen Delivery Room Air 04/29/25 16:29 Reviewed. Transfer [facility]fered to: [facility]) Transportation: Other (Pre vehicle) Transfer rationale: Abdominal pain Accepting physician: Madina MDM - Abdominal Pain MDM Narrative Medical decision making narrative: Patient is nontoxic appearing and in no acute distress Critical Care Time Critical Care Time Critical Care Time: No Discharge Plan Discharge Clinical Impression: Abdominal pain Patient Disposition: Acute Care Hospital Condition: Stable Patient Language: Guyanese Prescriptions: No Action albuterol sulfate 90 mcg/actuation HFA aerosol inhaler 2 inh inhalation Q4H PRN (Reason: shortness of breath or wheezing) Qty: 8.5 4RF hydroxyzine HCl 25 mg tablet 25 mg PO TID PRN (Reason: anxiety) Qty: 90 3RF (DME) BD Sharps Oyster Unloader Misc See Rx Instructions .Route Qty: 1 0RF Rx Instructions: As directed (DME) blood-glucose meter Misc See Rx Instructions .Route Qty: 1 0RF Rx Instructions: use to test blood sugars once daily (DME) OneTouch Verio test strips Strip See Rx Instructions .Route Qty: 100 2RF Rx Instructions: use to test blood sugars once daily insulin glargine [Lantus Solostar U-100 Insulin] 100 unit/mL (3 mL) insulin pen 55 unit subcut DAILY Qty: 18 5RF Trulicity 0.75 mg/0.5 mL pen injector 0.75 mg subcut WEEKLY Qty: 2 0RF hydrocodone-acetaminophen 7.5-325 mg tablet 1 tablet PO Q6H PRN (Reason: pain) Qty: 120 0RF Follow-up/Referrals: Cb Perdue MD [Primary Care Provider, Family Practice] Time of Disposition: 16:48
== END 2025-04-29 16:50 | disposition short-term general hospital (02) ==
PROVIDERS: Emergency Provider Nurse Practitioner; PCP Family Medicine Adolescent Medicine
DX: R10.31 Right lower quadrant pain (principal); J44.9 Chronic obstructive pulmonary disease, unspecified; E11.9 Type 2 diabetes mellitus without complications; F17.210 Nicotine dependence, cigarettes, uncomplicated
CPT/HCPCS: 99212; G0463

== ENCOUNTER 2025-05-11 15:12 | Emergency (ER) | payer OTHER, SELFPAY ==
[2025-05-11] VITALS (7 sets, daily range): BP systolic 133–148; BP diastolic 73–91; PULSE 96–120; RESP 16–22; TEMP 36.2–37.1; O2SAT 99–100
--- NOTE | ~2025-05-11 | CT_ITS ---
EXAMINATION: CTA chest PE abdomen pel DATE: 05/11/2025 18:19 INDICATION: Shortness of breath. Tachycardia. Previous history of bowel obstruction. TECHNIQUE: Computed tomography angiography (CTA) of the chest was performed with 100 mL Omnipaque-350 intravenous contrast timed to evaluate the pulmonary arteries. Coronal maximum intensity projection 3D-reconstructions were created by the technologist. Computed tomography (CT) of the abdomen and pelvis was performed with intravenous contrast. Automated exposure control and iterative reconstruction technique were employed. The dose-length product was 2480.99 mGy-cm. COMPARISON: CT abdomen pelvis 09/08/2024. FINDINGS: CTA chest: No acute or focal pulmonary lesions. No evidence of pulmonary emboli. Thoracic aorta shows no acute findings. No pleural or pericardial effusion. CT abdomen and pelvis: No focal lesions of liver and spleen. Gallbladder is contracted in size. Pancreas and kidneys do not show acute findings. No evidence of small bowel obstruction. Normal size appendix. Fecal impaction of the proximal colon. Diverticulosis of the sigmoid colon and descending colon. No evidence of acute diverticulitis. Severe degenerative disc disease in the lower lumbar spine. IMPRESSION: 1. No evidence of pulmonary emboli. Thoracic aorta shows no acute findings. 2. No acute findings noted in the upper abdomen and pelvis. Fecal impaction of proximal colon.. Diverticulosis of distal colon. 3. Degenerative disc disease of lower lumbar spine. Reviewed, dictated and finalized at location T. [facility]
--- NOTE | 2025-05-11 17:01 | ED.GENADULT ---
HPI - General Adult General Chief complaint: Abdominal Pain <AURELIA Bonilla - Last Filed: 05/11/25 17:19> Stated complaint: abd pain feels like someone is strangling organs <AURELIA Bonilla - Last Filed: 05/11/25 17:19> Time Seen by Provider: 05/11/25 18:40 <AURELIA Bonilla - Last Filed: 05/11/25 17:19> Focused HPI: 55 year old female presenting with pain from my hips to my neck. It wraps around to my chest. These concerns have been ongoing since Sunday before . She is specifically reporting constipation, shortness of breath, diffuse chest tightness without radiation, and diffuse abdominal pain. Last BM was Sunday. She has not vomited the last three days. She endorses a fever of 101.8 about one week ago but states she has not felt one since. Denies dysuria/hematuria, melena/hematochezia, hematemesis. Patient has been a smoker for 30 years but states within the last month she has gotten down to 10 cigarettes/day. GENERAL: Mild distress. HEAD: Normocephalic, atraumatic. CHEST: Diffuse expiratory wheezing. HEART: Tachycardic. NEURO: ?Alert and oriented x3. Patient screened in triage and initial orders placed.? ?Additional care and disposition to be based upon?diagnostic testing and treatment. <AURELIA Bonilla - Last Filed: 05/11/25 17:19> Related Data Allergies/adverse reactions: Allergies Allergy/AdvReac Type Severity Reaction Status Date / Time liraglutide (From Victoza) AdvReac Intermediate Headache Verified 05/11/25 15:13 <AURELIA Bonilla - Last Filed: 05/11/25 17:19> Review of Systems Review of Systems: All systems reviewed & are unremarkable except as noted in HPI and below <Marjorie James PA-C - Last Filed: 05/11/25 22:48> [facility]LY [facility] Past Medical History Medical History: Medical History COPD (chronic obstructive pulmonary disease) Type 2 diabetes mellitus with hyperglycemia Radiculopathy, cervical region Degenerative disc disease Acute exacerbation of chronic obstructive pulmonary disease Anxiety Depression Bowel perforation Patient had microperforation from ileocecal diverticulitis in 2017 and was treated conservatively without surgery Bowel obstruction Diverticulitis Pneumonia Emphysema of lung <AURELIA Bonilla - Last Filed: 05/11/25 17:19> Surgical History Surgical History: Surgical History History of endometrial ablation History of ankle surgery right ankle Hx of knee surgery left knee Hx of spinal surgery L3, L4 Hx of tubal ligation <AURELIA Bonilla - Last Filed: 05/11/25 17:19> Family History Family History: Family History Mother Alzheimer's disease Cerebrovascular accident Hypertension Sibling Diabetes mellitus Type 2 Asthma Hypertension Father Renal carcinoma Colon polyp Sibling Diabetes mellitus Hypertension Other Depression <AURELIA Bonilla - Last Filed: 05/11/25 17:19> Social History Social History: Social History Smoking packs per day: 0.5 Smoking cigarettes per day: 10.0 Years smoked: 3 Smoking pack-years: 1.50 Smoking status: Current every day smoker Tobacco type: cigarettes Second hand tobacco smoke exposure: No Alcohol intake: never Substance use: never Substance use type: does not use Lack of Transportation: No Lack of Food: Never True Current Housing: I Have Housing Concerned About Future Housing: No Difficulty Paying Gas/Electric Bills: No Difficulty Paying for Meds: No Currently Unemployed: No Education: High School Diploma/GED Difficulty w/ Childcare or Family Care: No Living arrangements: with family Occupation/Education: occupation 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 HEAD: Normocephalic, atraumatic. EYES: EOMI. ENT: Nares clear, no rhinorrhea or epistaxis. Mucous membranes moist. Oropharynx without tonsillar hypertrophy exudate or other lesions. NECK: Supple. No adenopathy or masses. CHEST: No respiratory distress. Diffuse expiratory wheezing. No rales or rhonchi HEART: Regular rate and rhythm. No murmur heard. Normal peripheral pulses. ABDOMEN: Soft, nondistended, normal active bowel sounds. Tender to palpation throughout the abdomen, without guarding EXTREMITIES: Normal range of motion. No edema. SKIN: Warm, dry, no rash. NEURO: No focal deficits. Alert and oriented x3. PSYCH: Normal mood and affect <Marjorie James PA-C - Last Filed: 05/11/25 22:48> Course Course Emergency Course: Patient's lungs are now open with only mild scattered wheezing. <Marjorie James PA-C - Last Filed: 05/11/25 22:48> Vital Signs Vital signs: Vital Signs Temperature 97.1 F L 05/11/25 15:30 Pulse Rate 120 H 05/11/25 15:30 Respiratory Rate 22 H 05/11/25 15:30 Blood Pressure 148/73 H 05/11/25 15:30 Pulse Oximetry 99 05/11/25 15:30 Oxygen Delivery Room Air 05/11/25 15:30 Temperature 98.7 F 05/11/25 20:16 Pulse Rate 96 05/11/25 21:22 Respiratory Rate 20 05/11/25 21:22 Blood Pressure 146/91 H 05/11/25 20:16 Pulse Oximetry 100 05/11/25 20:16 Oxygen Delivery Room Air 05/11/25 20:16 <AURELIA Bonilla Last Filed: 05/11/25 17:19> Vital Signs Temperature 97.1 F L 05/11/25 15:30 Pulse Rate 120 H 05/11/25 15:30 Respiratory Rate 22 H 05/11/25 15:30 Blood Pressure 148/73 H 05/11/25 15:30 Pulse Oximetry 99 05/11/25 15:30 Oxygen Delivery Room Air 05/11/25 15:30 Temperature 98.7 F 05/11/25 20:16 Pulse Rate 96 05/11/25 21:22 Respiratory Rate 20 05/11/25 21:22 Blood Pressure 146/91 H 05/11/25 20:16 Pulse Oximetry 100 05/11/25 20:16 Oxygen Delivery Room Air 05/11/25 20:16 <Marjorie James PA-C - Last Filed: 05/11/25 22:48> [facility] Narrative Medical decision making narrative: Patient presents to the emergency department for abdominal pain, back pain. Also with shortness of breath, notable wheezing. Tachycardic upon arrival, this normalized after management of COPD and control of her pain. Given nebulizer treatment, steroids, magnesium with relief. CBC with mild leukocytosis to 10.3. Patient is afebrile and nontoxic appearing. Metabolic panel without acute findings. Urine with 6-10 white blood cells, but moderate squamous epithelial cells. Likely contamination. Influenza, RSV and COVID screens are negative. EKG without acute ST changes, baseline and 3 hour troponin are negative. CTA chest PE with abdomen and pelvis without acute findings. Showing some constipation. Patient was updated on her workup. Will be given follow-up with GI and continued on treatment of COPD exacerbation <Marjorie James PA-C - Last Filed: 05/11/25 22:48> Differential Diagnosis Differential Diagnosis: COPD exacerbation, pneumonia, constipation, diverticulitis, small-bowel obstruction <SHANNON Mcconnell Last Filed: 05/11/25 22:48> Medical Records I have reviewed the following patient records and this information was taken into consideration when formulating the assessment and plan.: previous ER visits and previous hospitalizations <Marjorie James PA-C - Last Filed: 05/11/25 22:48> Lab Data [facility] Lab Attestation statement: I personally reviewed the patient's lab results. <Marjorie James PA-C - Last Filed: 05/11/25 22:48> Result diagrams: 05/11/25 17:18 05/11/25 17:18 <AURELIA Bonilla Last Filed: 05/11/25 17:19> Labs: Lab Results 05/11/25 05/11/25 05/11/25 Range/Units 17:18 17:18 20:14 WBC 10.3 H (4.5-10.0) K/mm3 RBC 4.60 (4.2-5.4) M/mm3 Hgb 14.6 (12.0-15.0) g/dL Hct 43.1 (37.0-47.0) % MCV 93.7 (80-100) fl MCH 31.7 (26-34) pg MCHC 33.9 (32-36) g/dl RDW 12.6 (11.5-14.5) % Plt Count 331 (150-375) k/mm3 MPV 9.4 (7.4-10.4) fl Immature Gran % (Auto) 0.5 (0-0.5) % Neut % (Auto) 57.1 (45.5-73.1) % Lymph % (Auto) 27.7 (18.3-44.2) % [place] % (Auto) 10.5 H (2.6-8.5) % Eos % (Auto) 3.2 (0-4.4) % Baso % (Auto) 1.0 (0.2-1.2) % Lymph # (Auto) 2.85 (0.9-3.2) K/mm3 [place] # (Auto) 1.1 H (0.1-0.6) K/mm3 Eos # (Auto) 0.3 (0-0.3) K/mm3 Baso # (Auto) 0.1 (0.0-0.1) K/mm3 Abs Immat Gran (auto) 0.05 H (0.00-0.031) K/mm3 Absolute Neuts (auto) 5.9 (1.3-6.7) K/mm3 Absolute Nucleated RBC 0.000 (0.0-0.012) K/mm3 Nucleated RBC % 0.0 (0.0-0.2) % PT 12.2 (11.1-14.7) Seconds INR 0.9 APTT 25.6 (22.3-36.8) Seconds Sodium 133 L (137-145) mmol/L Potassium 3.9 (3.4-5.0) mmol/L Chloride 97 L (98-107) mmol/L Carbon Dioxide 33 H (22-30) mmol/L Anion Gap 3 L (4-12) mmol/L BUN 15 (7-17) mg/dL Creatinine 0.88 (0.7-1.0) mg/dL Estim Creat Clear Calc 93 ml/min Estimated GFR > 60 (59 - ) Glucose 280 H (65-110) mg/dL Lactic Acid 1.9 (0.7-2.0) mmol/L Calcium 9.3 (8.4-10.2) mg/dL Total Bilirubin 0.4 (0.2-1.3) mg/dL AST 33 (14-36) U/L ALT 36 H (6-35) U/L Alkaline Phosphatase 141 H (38-126) U/L Troponin I 0.016 Cancelled (0.000-0.034) ng/mL Total Protein 6.9 (6.3-8.2) g/dL Albumin 3.8 (3.5-5.1) g/dL Lipase 113 (23-300) U/L Urine Color Yellow (Yellow) Urine Appearance Clear (Clear) Urine pH 7.0 (5.0-9.0) Ur Specific [place] > 1.045 H (1.001-1.035) Urine Protein Trace (Negative) mg/dL Urine Glucose (UA) 3+ H (Negative) mg/dL Urine Ketones Negative (Negative) mg/dL Ur Blood (Man) Negative (Negative) Urine Nitrate Negative (Negative) Urine Bilirubin Negative (Negative) Urine Urobilinogen 0.2 (<2.0) mg/dL Add Ur Microanalysis Reviewed Leukocyte Esterase Rfl Negative (Negative) AYESHA/UL Urine RBC 0-2 (0-2) /hpf Urine WBC 6-10 H (0-3) /hpf Ur Squamous Epith Cells Moderate (Few) /hpf Urine Bacteria 1+ H /hpf Urine Casts 0-2 POC Urine HCG, Qual (Negative) Influenza A (RT-PCR) Negative (Negative) Influenza B (RT-PCR) Negative (Negative) RSV (RT-PCR) Negative (Negative) SARS-CoV-2 RNA (RT-PCR) Negative (Negative) 05/11/25 05/11/25 Range/Units 20:18 21:05 WBC (4.5-10.0) K/mm3 RBC (4.2-5.4) M/mm3 Hgb (12.0-15.0) g/dL Hct (37.0-47.0) % MCV (80-100) fl MCH (26-34) pg MCHC (32-36) g/dl RDW (11.5-14.5) % Plt Count (150-375) k/mm3 MPV (7.4-10.4) fl Immature Gran % (Auto) (0-0.5) % Neut % (Auto) (45.5-73.1) % Lymph % (Auto) (18.3-44.2) % [place] % (Auto) (2.6-8.5) % Eos % (Auto) (0-4.4) % Baso % (Auto) (0.2-1.2) % Lymph # (Auto) (0.9-3.2) K/mm3 [place] # (Auto) (0.1-0.6) K/mm3 Eos # (Auto) (0-0.3) K/mm3 Baso # (Auto) (0.0-0.1) K/mm3 Abs Immat Gran (auto) (0.00-0.031) K/mm3 Absolute Neuts (auto) (1.3-6.7) K/mm3 Absolute Nucleated RBC (0.0-0.012) K/mm3 Nucleated RBC % (0.0-0.2) % PT (11.1-14.7) Seconds INR APTT (22.3-36.8) Seconds Sodium (137-145) mmol/L Potassium (3.4-5.0) mmol/L Chloride (98-107) mmol/L Carbon Dioxide (22-30) mmol/L Anion Gap (4-12) mmol/L BUN (7-17) mg/dL Creatinine (0.7-1.0) mg/dL Estim Creat Clear Calc ml/min Estimated GFR (59 - ) Glucose (65-110) mg/dL Lactic Acid (0.7-2.0) mmol/L Calcium (8.4-10.2) mg/dL Total Bilirubin (0.2-1.3) mg/dL AST (14-36) U/L ALT (6-35) U/L Alkaline Phosphatase (38-126) U/L Troponin I 0.016 (0.000-0.034) ng/mL Total Protein (6.3-8.2) g/dL Albumin (3.5-5.1) g/dL Lipase (23-300) U/L Urine Color (Yellow) Urine Appearance (Clear) Urine pH (5.0-9.0) Ur Specific [place] (1.001-1.035) Urine Protein (Negative) mg/dL Urine Glucose (UA) (Negative) mg/dL Urine Ketones (Negative) mg/dL Ur Blood (Man) (Negative) Urine Nitrate (Negative) Urine Bilirubin (Negative) Urine Urobilinogen (<2.0) mg/dL Add Ur Microanalysis Leukocyte Esterase Rfl (Negative) AYESHA/UL Urine RBC (0-2) /hpf Urine WBC (0-3) /hpf Ur Squamous Epith Cells (Few) /hpf Urine Bacteria /hpf Urine Casts POC Urine HCG, Qual Negative (Negative) Influenza A (RT-PCR) (Negative) Influenza B (RT-PCR) (Negative) RSV (RT-PCR) (Negative) SARS-CoV-2 RNA (RT-PCR) (Negative) <AURELIA Bonilla - Last Filed: 05/11/25 17:19> Lab Results 05/11/25 05/11/25 05/11/25 Range/Units 17:18 17:18 20:14 WBC 10.3 H (4.5-10.0) K/mm3 RBC 4.60 (4.2-5.4) M/mm3 Hgb 14.6 (12.0-15.0) g/dL Hct 43.1 (37.0-47.0) % MCV 93.7 (80-100) fl MCH 31.7 (26-34) pg MCHC 33.9 (32-36) g/dl RDW 12.6 (11.5-14.5) % Plt Count 331 (150-375) k/mm3 MPV 9.4 (7.4-10.4) fl Immature Gran % (Auto) 0.5 (0-0.5) % Neut % (Auto) 57.1 (45.5-73.1) % Lymph % (Auto) 27.7 (18.3-44.2) % [place] % (Auto) 10.5 H (2.6-8.5) % Eos % (Auto) 3.2 (0-4.4) % Baso % (Auto) 1.0 (0.2-1.2) % Lymph # (Auto) 2.85 (0.9-3.2) K/mm3 [place] # (Auto) 1.1 H (0.1-0.6) K/mm3 Eos # (Auto) 0.3 (0-0.3) K/mm3 Baso # (Auto) 0.1 (0.0-0.1) K/mm3 Abs Immat Gran (auto) 0.05 H (0.00-0.031) K/mm3 Absolute Neuts (auto) 5.9 (1.3-6.7) K/mm3 Absolute Nucleated RBC 0.000 (0.0-0.012) K/mm3 Nucleated RBC % 0.0 (0.0-0.2) % PT 12.2 (11.1-14.7) Seconds INR 0.9 APTT 25.6 (22.3-36.8) Seconds Sodium 133 L (137-145) mmol/L Potassium 3.9 (3.4-5.0) mmol/L Chloride 97 L (98-107) mmol/L Carbon Dioxide 33 H (22-30) mmol/L Anion Gap 3 L (4-12) mmol/L BUN 15 (7-17) mg/dL Creatinine 0.88 (0.7-1.0) mg/dL Estim Creat Clear Calc 93 ml/min Estimated GFR > 60 (59 - ) Glucose 280 H (65-110) mg/dL Lactic Acid 1.9 (0.7-2.0) mmol/L Calcium 9.3 (8.4-10.2) mg/dL Total Bilirubin 0.4 (0.2-1.3) mg/dL AST 33 (14-36) U/L ALT 36 H (6-35) U/L Alkaline Phosphatase 141 H (38-126) U/L Troponin I 0.016 Cancelled (0.000-0.034) ng/mL Total Protein 6.9 (6.3-8.2) g/dL Albumin 3.8 (3.5-5.1) g/dL Lipase 113 (23-300) U/L Urine Color Yellow (Yellow) Urine Appearance Clear (Clear) Urine pH 7.0 (5.0-9.0) Ur Specific [place] > 1.045 H (1.001-1.035) Urine Protein Trace (Negative) mg/dL Urine Glucose (UA) 3+ H (Negative) mg/dL Urine Ketones Negative (Negative) mg/dL Ur Blood (Man) Negative (Negative) Urine Nitrate Negative (Negative) Urine Bilirubin Negative (Negative) Urine Urobilinogen 0.2 (<2.0) mg/dL Add Ur Microanalysis Reviewed Leukocyte Esterase Rfl Negative (Negative) AYESHA/UL Urine RBC 0-2 (0-2) /hpf Urine WBC 6-10 H (0-3) /hpf Ur Squamous Epith Cells Moderate (Few) /hpf Urine Bacteria 1+ H /hpf Urine Casts 0-2 POC Urine HCG, Qual (Negative) Influenza A (RT-PCR) Negative (Negative) Influenza B (RT-PCR) Negative (Negative) RSV (RT-PCR) Negative (Negative) SARS-CoV-2 RNA (RT-PCR) Negative (Negative) 05/11/25 05/11/25 Range/Units 20:18 21:05 WBC (4.5-10.0) K/mm3 RBC (4.2-5.4) M/mm3 Hgb (12.0-15.0) g/dL Hct (37.0-47.0) % MCV (80-100) fl MCH (26-34) pg MCHC (32-36) g/dl RDW (11.5-14.5) % Plt Count (150-375) k/mm3 MPV (7.4-10.4) fl Immature Gran % (Auto) (0-0.5) % Neut % (Auto) (45.5-73.1) % Lymph % (Auto) (18.3-44.2) % [place] % (Auto) (2.6-8.5) % Eos % (Auto) (0-4.4) % Baso % (Auto) (0.2-1.2) % Lymph # (Auto) (0.9-3.2) K/mm3 [place] # (Auto) (0.1-0.6) K/mm3 Eos # (Auto) (0-0.3) K/mm3 Baso # (Auto) (0.0-0.1) K/mm3 Abs Immat Gran (auto) (0.00-0.031) K/mm3 Absolute Neuts (auto) (1.3-6.7) K/mm3 Absolute Nucleated RBC (0.0-0.012) K/mm3 Nucleated RBC % (0.0-0.2) % PT (11.1-14.7) Seconds INR APTT (22.3-36.8) Seconds Sodium (137-145) mmol/L Potassium (3.4-5.0) mmol/L Chloride (98-107) mmol/L Carbon Dioxide (22-30) mmol/L Anion Gap (4-12) mmol/L BUN (7-17) mg/dL Creatinine (0.7-1.0) mg/dL Estim Creat Clear Calc ml/min Estimated GFR (59 - ) Glucose (65-110) mg/dL Lactic Acid (0.7-2.0) mmol/L Calcium (8.4-10.2) mg/dL Total Bilirubin (0.2-1.3) mg/dL AST (14-36) U/L ALT (6-35) U/L Alkaline Phosphatase (38-126) U/L Troponin I 0.016 (0.000-0.034) ng/mL Total Protein (6.3-8.2) g/dL Albumin (3.5-5.1) g/dL Lipase (23-300) U/L Urine Color (Yellow) Urine Appearance (Clear) Urine pH (5.0-9.0) Ur Specific [place] (1.001-1.035) Urine Protein (Negative) mg/dL Urine Glucose (UA) (Negative) mg/dL Urine Ketones (Negative) mg/dL Ur Blood (Man) (Negative) Urine Nitrate (Negative) Urine Bilirubin (Negative) Urine Urobilinogen (<2.0) mg/dL Add Ur Microanalysis Leukocyte Esterase Rfl (Negative) AYESHA/UL Urine RBC (0-2) /hpf Urine WBC (0-3) /hpf Ur Squamous Epith Cells (Few) /hpf Urine Bacteria /hpf Urine Casts POC Urine HCG, Qual Negative (Negative) Influenza A (RT-PCR) (Negative) Influenza B (RT-PCR) (Negative) RSV (RT-PCR) (Negative) SARS-CoV-2 RNA (RT-PCR) (Negative) <Marjorie James PA-C - Last Filed: 05/11/25 22:48> Imaging Data Radiologist's impression: ITS Impressions Chest/Abdomen/Pelvis CTA 05/11/25 18:41 IMPRESSION: 1. No evidence of pulmonary emboli. Thoracic aorta shows no acute findings. 2. No acute findings noted in the upper abdomen and pelvis. Fecal impaction of proximal colon.. Diverticulosis of distal colon. 3. Degenerative disc disease of lower lumbar spine. <AURELIA Bonilla Last Filed: 05/11/25 17:19> ITS Impressions Chest/Abdomen/Pelvis CTA 05/11/25 18:41 IMPRESSION: 1. No evidence of pulmonary emboli. Thoracic aorta shows no acute findings. 2. No acute findings noted in the upper abdomen and pelvis. Fecal impaction of proximal colon.. Diverticulosis of distal colon. 3. Degenerative disc disease of lower lumbar spine. <Marjorie James PA-C - Last Filed: 05/11/25 22:48> Critical Care Time Critical Care Time Critical Care Time: No <Marjorie James PA-C - Last Filed: 05/11/25 22:48> Discharge Plan Discharge Clinical Impression: COPD exacerbation Abdominal pain Qualifiers: Abdominal location: generalized Qualified Code(s): R10.84 - Generalized abdominal pain <AURELIA Bonilla Last Filed: 05/11/25 17:19> Patient Disposition: Home <AURELIA Bonilla Last Filed: 05/11/25 17:19> Condition: Improved <AURELIA Bonilla Last Filed: 05/11/25 17:19> Instructions: Constipation (ED), COPD (Chronic Obstructive Pulmonary Disease) (ED), Abdominal Pain (ED) <AURELIA Bonilla Last Filed: 05/11/25 17:19> Additional Instructions: Return to the ER if you experience fever, abdominal pain with nausea and vomiting, you are unable to keep down liquids or solids, or any other symptoms that are concerning to you Remain well hydrated. Take pantoprazole as prescribed. Take Prednisone as prescribed. Albuterol 2 puffs every 4-6 hours as needed for shortness of breath or wheezing. Take Colace daily and Miralax as needed Follow up with primary care doctor and gastroenterology <AURELIA Bonilla Last Filed: 05/11/25 17:19> Patient Language: Arabic <AURELIA Bonilla - Last Filed: 05/11/25 17:19> Prescriptions: New prednisone 20 mg tablet 40 mg PO DAILY 4 Days Qty: 8 0RF pantoprazole [Protonix] 40 mg tablet,delayed release (DR/EC) 40 mg PO HS 28 Days Qty: 28 0RF albuterol sulfate [Ventolin HFA] 90 mcg/actuation HFA aerosol inhaler 2 puff inhalation QID PRN (Reason: shortness of breath or wheezing) Qty: 8.5 0RF No Action albuterol sulfate 90 mcg/actuation HFA aerosol inhaler 2 inh inhalation Q4H PRN (Reason: shortness of breath or wheezing) Qty: 8.5 4RF hydroxyzine HCl 25 mg tablet 25 mg PO TID PRN (Reason: anxiety) Qty: 90 3RF (DME) BD Sharps Machine Hand Misc See Rx Instructions .Route Qty: 1 0RF Rx Instructions: As directed (DME) blood-glucose meter Misc See Rx Instructions .Route Qty: 1 0RF Rx Instructions: use to test blood sugars once daily (DME) OneTouch Verio test strips Strip See Rx Instructions .Route Qty: 100 2RF Rx Instructions: use to test blood sugars once daily insulin glargine [Lantus Solostar U-100 Insulin] 100 unit/mL (3 mL) insulin pen 55 unit subcut DAILY Qty: 18 5RF Trulicity 0.75 mg/0.5 mL pen injector 0.75 mg subcut WEEKLY Qty: 2 0RF hydrocodone-acetaminophen 7.5-325 mg tablet 1 tablet PO Q6H PRN (Reason: pain) Qty: 120 0RF celecoxib 200 mg capsule 200 mg PO BID Qty: 40 0RF <AURELIA Bonilla - Last Filed: 05/11/25 17:19> Follow-up/Referrals: Fredi Vences MD [Physician, Gastroenterology] Cb Perdue MD [Primary Care Provider, Family Practice] <AURELIA Bonilla - Last Filed: 05/11/25 17:19>
--- NOTE | 2025-05-11 17:11 | ECG_ITS ---
Test Date: 2025-05-11 17:15:43 Measurements Intervals [place] Rate: 111 P: 52 [place]: 160 QRS: 38 QRSD: 93 T: 55 QT: 327 QTc: 445 Interpretive Statements SINUS TACHYCARDIA LOW QRS VOLTAGE IN PRECORDIAL LEADS CONSIDER INFERIOR INFARCT, AGE INDETERMINATE ABNORMAL ECG Compared to ECG 08/27/2024 12:17:05 NO SIGNIFICANT CHANGE Electronically Signed On 05-11-2025 19:50:59 CHIEF ORDER DISPATCHER by Dejuan Cardoso D.O.
[2025-05-11 17:25] LABS: Hematocrit 43.1 % (37.0-47.0); Hemoglobin 14.6 g/dL (12.0-15.0); Immature Granulocyte Percent A 0.5 % (0-0.5); Lymphocytes Absolute Auto 2.85 K/mm3 (0.9-3.2); Mean Corpuscular HGB Conc 33.9 g/dl (32-36); Mean Corpuscular Hemoglobin 31.7 pg (26-34); Mean Corpuscular Volume 93.7 fl (80-100); Nucleated Red Blood Cells Absolute Auto 0.000 K/mm3 (0.0-0.012); Nucleated Red Blood Cells Perc 0.0 % (0.0-0.2); Platelet Count Result 331 k/mm3 (150-375); Red Blood Count 4.60 M/mm3 (4.2-5.4); White Blood Count 10.3 K/mm3 (4.5-10.0)
[2025-05-11 17:38] LABS: INR 0.9; Prothrombin Time 12.2 Seconds (11.1-14.7)
[2025-05-11 17:39] LABS: Partial Thromboplastin Time 25.6 Seconds (22.3-36.8)
[2025-05-11 17:43] LABS: Alanine Aminotransferase 36 U/L (6-35); Albumin Level 3.8 g/dL (3.5-5.1); Alkaline Phosphatase 141 U/L (38-126); Anion Gap 3 mmol/L (4-12); Aspartate Amino Transferase 33 U/L (14-36); Bilirubin,Total 0.4 mg/dL (0.2-1.3); Blood Urea Nitrogen 15 mg/dL (7-17); Calcium 9.3 mg/dL (8.4-10.2); Carbon Dioxide 33 mmol/L (22-30); Chloride 97 mmol/L (98-107); Estimated CRCL calculation 93 ml/min; Estimated Glomerular Filt Rate > 60; Glucose 280 mg/dL (65-110); Lipase 113 U/L (23-300); Potassium 3.9 mmol/L (3.4-5.0); Sodium 133 mmol/L (137-145); Total Protein 6.9 g/dL (6.3-8.2)
[2025-05-11 17:49] LABS: Troponin I 0.016 ng/mL (0.000-0.034)
[2025-05-11 18:01] LABS: Influenza A QL RT-PCR Negative (Negative); Influenza B QL RT-PCR Negative (Negative); RSV RNA, RT-PCR Negative (Negative); SARS-CoV-2 RNA PCR Negative (Negative)
--- OUTSIDE RECORDS SUMMARY | 2025-05-11 18:32 | XMS_ITS | Clinical Summary ---
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 Gender Identity Not on file Sexual Orientation Not on file Last Filed Vital Signs Vital Sign Reading Time Taken Comments Blood Pressure 151/86 06/27/2019 9:55 AM CROWNING HAMMER OPERATOR Pulse 71 06/27/2019 7:47 AM CROWNING HAMMER OPERATOR Temperature 36.1 C (97 F) 06/27/2019 7:47 AM CROWNING HAMMER OPERATOR Respiratory Rate 16 06/27/2019 7:47 AM CROWNING HAMMER OPERATOR Oxygen Saturation 96% 06/27/2019 3:41 AM CROWNING HAMMER OPERATOR Inhaled Oxygen Concentration - - Weight 113.6 kg (250 lb 7.1 oz) 06/27/2019 3:41 AM CROWNING HAMMER OPERATOR Height 170.2 cm (5' 7) 06/25/2019 10:4 7 PM CROWNING HAMMER OPERATOR Body Mass Index 39.22 06/25/2019 10:47 PM CROWNING HAMMER OPERATOR Plan of Treatment Health Maintenance Due Date Last Done Comments Cervical Cancer Screening Pa p Smear (Age 30 to 64) Every 3 Years 1972 Colorectal Cancer Screening Colonoscopy (10 Years) 1972 Annual Physical 02/14/1975 Hepatitis C 02/14/1990 DTaP, Tdap and Td Vaccines ( 1 - Tdap) 02/14/1991 Hepatitis B Vaccines (1 of 3 - 19+ 3-dose series) 02/14/1991 Pneumococcal Vaccine: 50+ Ye ars (1 of 2 - PCV) 02/14/1991 Cervical Cancer Screening Pa p with HPV Testing (Age 30 to 64) Every 5 Years 02/14/2002 Cervical Cancer Screening with HPV 02/14/2002 Mammogram Screening 2012 Zoster Vaccines (1 of 2) 02/14/2022 COVID-19 Vaccine ( - 2024-2 6 season) 2025 Influenza Adult (#1) 2025 Hepatitis A Vaccines Aged Out No long er eligible based on patient's age to complete this topic Meningococcal B Vaccine Aged Out No l [...] Recent Progress Patient-Stated? Author HOME TO [facility]DEP[facility] Pamela Kirk, RN Insurance [facility] Advance Directives * Full Code (Latest Code Status on File) Date Activated Date Inactivated Comments 06/25/2019 10:58 PM 06/27/2019 1:16 PM Care Teams Locomotive Pipe Fitter Relationship Specialty Start Date End Date Cb Perdue MD [id number] [address] PCP - General FAMILY PRACTICE 06/25/19
--- OUTSIDE RECORDS SUMMARY | 2025-05-11 18:32 | XMS_ITS | Clinical Summary ---
Author Organization [facility] Address [address] [place] [address] Care Team Providers Care Master [place] Name Role Phone Cb Perdue MD Primary Care Prov ider Allergies No known active allergies Medications cyclobenzaprine (FLEXERIL) 5 mg tablet Take 1 tablet (5 mg total) by mouth 3 (three) times a day as needed for muscle spasms Active LANTUS 100 unit/mL (3 mL) pen for injection Inject 55 Units under the skin pan dumper before breakfast 5 Active albuterol HFA (PROVENTIL HFA,VENTOLIN HFA,PROAIR HFA) 90 mcg/actuation inhaler Inhale 1 puff every 6 (six) hours as needed for wheezing or shortness of breath 3 Active HYDROcodone-gali taminophen (NORCO) 7.5-325 mg per tabletIndicatio ns:Pain Take 1 tablet by mouth every 6 (six) hours as needed for pain Active prochlorperazin e (COMPAZINE) 10 mg tablet Take 1 tablet (10 mg total) by mouth 2 (two) times a day as needed for nausea or vomiting 10 tablet 5 Active bisacodyl EC (DULCOLAX EC) 5 mg EC tabletIndicatio ns:constipation Take 2 tablets (10 mg total) by mouth 2 (two) times a day 20 min Before go lytely 2 tablet 5 Active polyethylene glycol (GoLYTELY) 236-22.74-6.74 -5.86 gram solution Take 4,000 mL by mouth once for 1 dose 4000 mL 05/09/20 25 Active Problems Problem Noted Date Diagnosed Date COPD exacerbation 03/29/2025 Hyperglycemia 03/29/2025 Chest pain 03/29/2025 SBO (small bowel obstruction) 09/14/2024 Encounters Date Type Department Care Team Description 05/09/2025 7:33 AM [facility] - 05/09/2025 12:26 PM [facility] Emergency [facility] Emergency Department [address] [place] [address] Erik Holbrook MD Epigastric pain (Primary Dx); Constipation in female; Chest pain, unspecified type; Constipation, unspecified constipation type Discharge Disposition: Discharge to home or self care 05/04/2025 7:05 AM [facility] - 05/04/2025 11:[address] [facility] Emergency Department [address] [place] [address] Shamar Watson MD Nausea and vomiting, unspecified vomiting type (Primary Dx) Discharge Disposition: Discharge to home or self care 05/01/2025 7:17 AM [facility] - 05/01/2025 11:[address] [facility] Emergency Department [address] [place] [id number] Erik Holbrook MD Abdominal pain, unspecified abdominal location (Primary Dx) Discharge Disposition: Discharge to home or self care 03/29/2025 12:19 PM CDT - 04/01/2025 9:30 AM CDT Hospital Encounter [facility] IMU [address] [place] [id number] Triston Lynn Jr., MD Akuse, MD Ron [...] often do you attend chur ch or sabianist services? Never 09/15/2024 Do you belong to any clubs o r organizations such as congregation groups, unions, fraternal or athletic groups, or [...] any time in the past 12 m [facility], were you homeless or living in a intermediate (including now)? No 09/15/2024 Social Connection and Isolation Panel Answer Date Recorded In a typical week, how many times do you talk on the phone with family, friends, or neighbors? More than three times a week 03/30/2025 How often do you get togethe r with friends or relatives? Three times a week 03/30/2025 How often do you attend chur ch or sabianist services? Never 03/30/2025 Do you belong to any clubs o r organizations such as congregation groups, unions, fraternal or athletic groups, or [...] money to buy more. Never true 03/30/20 Within the past 12 months, t he [...] any time in the past 12 m [facility], were you homeless or living in a intermediate (including now)? No 03/30/2025 [facility] Utilities Answer Date Recorded In the past 12 months has th e electric, gas, oil, or water company threatened to shut off services in your home? Yes 03/30/2025 Personal Safety Answer Date Recorded Have you ever been in or are you currently in a harmful physical or emotional relationship or is someone making you feel afraid or unsafe? 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 Not on file Not on file Obstetrics History Para Term AB IAB SAB Ectopic Multiple Livin g Live Births 1 1 Date Outcome GA Total Labor Labor/2nd/3rd Weight Sex Type Anes PTL Aaliyah A1 A5 Name Clin Para Last Filed Vital Signs Vital Sign Reading Time Taken Comments Blood Pressure 129/99 05/09/2025 10:45 AM SURFACE PLATE FINISHER Pulse 100 05/09/2025 10:45 AM SURFACE PLATE FINISHER Temperature 36.3 C (97.3 F) 05/09/2025 7:32 AM SURFACE PLATE FINISHER Respiratory Rate 17 05/09/2025 10:45 AM SURFACE PLATE FINISHER Oxygen Saturation 95% 05/09/2025 10:45 AM SURFACE PLATE FINISHER Inhaled Oxygen Concentration - - Weight 129.3 kg (285 lb) 05/09/2025 7:32 AM SURFACE PLATE FINISHER Height 170.2 cm (5' 7) 05/09/2025 7:32 AM SURFACE PLATE FINISHER Body Mass Index 44.64 05/09/2025 7:32 AM SURFACE PLATE FINISHER Plan of Treatment Health Maintenance Due Date Last Done Comments Breast Cancer Screening-Mammogram 1972 Cervical Cancer Screening 1972 Colon Cancer Screening-Colonoscopy 1972 Depression Screening 1972 Hepatitis C Screening 1972 Hepatitis B Screening 02/14/1990 Regular Well Visit/Exam 18-64 02/14/1990 Pneumococcal vaccine <65 (2 of 2 - PCV) 09/01/2017 0 09/01/2016 Zoster Vaccine (1 of 2) 02/14/2022 Influenza Vaccine (#1) 2025 07/20/2021 DTaP/Tdap/Td Vaccine (3 - Td or Tdap) 02/09/203501/2025, 11/26/2017 Procedures Procedure Name Priority Date/Time Associated Diagnosis Comments TROPONIN T HIGH-SENSITIVITY 4-HR Timed 05/09/2025 11:38 AM SURFACE PLATE FINISHER SEPSIS LACTATE WITH REFLEX STAT 05/09/2025 11:38 AM SURFACE PLATE FINISHER POCT GLUCOSE DEVICE Routine 05/09/2025 9 :36 AM SURFACE PLATE FINISHER XR ABDOMEN AP 1 VIEW ED 05/09/2025 7:55 AM SURFACE PLATE FINISHER Epigastric pain Constipation in female XR CHEST 1 VIEW ED 05/09/2025 7:55 AM SURFACE PLATE FINISHER URINALYSIS AND REFLEX TO MICROSCOPIC AND CULTURE STAT 05/09/2025 7:53 AM SURFACE PLATE FINISHER EGFR STAT 05/09/2025 7:36 AM SURFACE PLATE FINISHER DIFFERENTIAL AUTO STAT 05/09/2025 7:3 6 AM SURFACE PLATE FINISHER TSH STAT 05/09/2025 7:36 AM SURFACE PLATE FINISHER MAGNESIUM Routine 05/09/2025 7:36 AM SURFACE PLATE FINISHER TROPONIN T HIGH-SENSITIVITY SERIES (BASELINE, 2HR, 4HR, 6HR) STAT 05/09/2025 7:36 AM SURFACE PLATE FINISHER COMPREHENSIVE METABOLIC PANEL STAT 05/09/2025 7:36 AM SURFACE PLATE FINISHER CBC WITH AUTO DIFFERENTIAL STAT 05/09/2025 7:36 AM SURFACE PLATE FINISHER ECG 12-LEAD STAT 05/09/2025 7:33 AM SURFACE PLATE FINISHER POCT GLUCOSE DEVICE Routine 05/04/2025 1 0:35 AM SURFACE PLATE FINISHER URINALYSIS AND REFLEX TO MICROSCOPIC AND CULTURE STAT 05/04/2025 8:33 AM SURFACE PLATE FINISHER XR ABDOMEN 2 VIEWS W CHEST 1 VIEW ED 05/04/2025 7:54 AM SURFACE PLATE FINISHER EGFR STAT 05/04/2025 7:35 AM SURFACE PLATE FINISHER DIFFERENTIAL AUTO STAT 05/04/2025 7:3 5 AM SURFACE PLATE FINISHER LIPASE STAT 05/04/2025 7:35 AM SURFACE PLATE FINISHER COMPREHENSIVE METABOLIC PANEL STAT 05/04/2025 7:35 AM SURFACE PLATE FINISHER CBC WITH AUTO DIFFERENTIAL STAT 05/04/2025 7:35 AM SURFACE PLATE FINISHER URINALYSIS, MICROSCOPIC ONLY STAT 05/01/2025 10:06 AM SURFACE PLATE FINISHER URINALYSIS AND REFLEX TO MICROSCOPIC AND CULTURE STAT 05/01/2025 10:06 AM SUR[address]ATE [address] CT ABDOMEN PELVIS W CONTRAST ED 05/01/2025 8:17 AM SURFACE PLATE FINISHER EGFR STAT 05/01/2025 7:45 AM SURFACE PLATE FINISHER DIFFERENTIAL AUTO STAT 05/01/2025 7:4 5 AM SURFACE PLATE FINISHER SEPSIS LACTATE WITH REFLEX STAT 05/01/2025 7:45 AM SURFACE PLATE FINISHER LIPASE STAT 05/01/2025 7:45 AM SURFACE PLATE FINISHER COMPREHENSIVE METABOLIC PANEL STAT 05/01/2025 7:45 AM SURFACE PLATE FINISHER CBC WITH AUTO DIFFERENTIAL STAT 05/01/2025 7:45 AM SURFACE PLATE FINISHER POCT GLUCOSE DEVICE Routine 04/01/2025 8 :37 [...] from Last 3 Months Results * (ABNORMAL) Troponin T high-sensitivity 4-hour (05/09/2025 11:38 AM SURFACE PLATE FINISHER) Pathologist [facility] Trop T hs 17(H) <=14 ng/L Comment: Interpretive Data For further hscTnT resources including the diagnostic algorithm and an aid in interpretation, copy and paste this link: https://nrl.testcatalog.org/show/hsTrop Current Interpretive Data last revised 2020. Trop T hs delta -3 ng/L [facility] ([facility]) Trop T hs interp Insignificant [facility] ([facility]) Blood 05/09/2025 11:3 8 AM SURFACE PLATE FINISHER 05/09/2025 11:45 AM SURFACE PLATE FINISHER us Erik Holbrook MD LAB BLOOD ORDERABLE S Final Result ETHELEUGENE RUSH ([place]ANN) 1 [facility] Department [place] [address] * Sepsis Lactate w/ Reflex (05/09/2025 11:38 AM SURFACE PLATE FINISHER) Sepsis Lactate 1.8 0.7 - 2.0 mmol/L Blood 05/09/2025 11:3 8 AM SURFACE PLATE FINISHER 05/09/2025 11:45 AM SURFACE PLATE FINISHER Erik Holbrook MD LAB BLOOD ORDERABLE S Final Result Performing Organization Address City/[facility]/ZIP Co de Phone Number AURELIO RUSH ([place]ANN) 1 [facility] [place] [address] * POCT glucose (05/09/2025 9:36 AM SURFACE PLATE FINISHER) Glucose, POC 102 70 - 199 mg/dL Blood 05/09/2025 9:36 AM SURFACE PLATE FINISHER 05/09/2025 9:36 AM SURFACE PLATE FINISHER Erik Holbrook MD LAB POCT ORDERABLES - DEVICE Final Result Performing Organization Address [facility] de Phone Number AURELIO RUSH ([place]ANN) 1 [facility] [place] [address] * XR CHEST 1 VIEW PORTABLE (05/09/2025 7:55 AM SURFACE PLATE FINISHER) Anatomical Region Laterality Modality Body, Chest N/A Computed Radiogr aphy 05/09/2025 8:10 AM SURFACE PLATE FINISHER Impressions 05/09/2025 8:10 AM SURFACE PLATE FINISHER No definite focal pneumonic consolidation. Electronically signed by: Vin Presley D.O. Narrative 05/09/2025 8:10 AM SURFACE PLATE FINISHER EXAMINATION: XR CHEST 1 VIEW HISTORY:shortness of breath TECHNIQUE: Single frontal view(s) of the chest were obtained obtained in sitting position. COMPARISON:Chest radiograph dated 05/04/2025. FINDINGS: Lung volumes are small with bronchovascular crowding. Evaluation is further degraded by patient's body habitus and imaging technique. No definite focal pneumonic consolidation, pleural effusion or pneumothorax. Cardiomediastinal silhouette is similar in size. Procedure Note Vin Presley, DO - 05/09/2025 EXAMINATION: XR CHEST 1 VIEW HISTORY:shortness of breath TECHNIQUE: Single frontal view(s) of the chest were obtained obtained in sitting position. COMPARISON:Chest radiograph dated 05/04/2025. FINDINGS: Lung volumes are small with bronchovascular crowding. Evaluation is further degraded by patient's body habitus and imaging technique. No definite focal pneumonic consolidation, pleural effusion or pneumothorax. Cardiomediastinal silhouette is similar in size. IMPRESSION: No definite focal pneumonic consolidation. Electronically signed by: Vin Presley D.O. us Erik Holbrook MD IMG XR PROCEDURES F inal Result * XR Abdomen 1 View AP (05/09/2025 7:55 AM SURFACE PLATE FINISHER) Anatomical Region Laterality Modality Body, Abdomen N/A Computed Radiogr aphy 05/09/2025 8:12 AM SURFACE PLATE FINISHER Impressions 05/09/2025 8:12 AM SURFACE PLATE FINISHER Nonobstructed bowel gas pattern. Electronically signed by: Vin Presley D.O. Narrative 05/09/2025 8:12 AM SURFACE PLATE FINISHER EXAMINATION: XR ABDOMEN AP 1 VIEW HISTORY:shortness of breath TECHNIQUE: A total of 4 views view(s) of the abdomen and were obtained. COMPARISON:Abdominal radiographs dated 05/04/2025 and 09/14/2024. CT abdomen and pelvis dated 05/01/2025. FINDINGS: There are gas-filled loops of large and small bowel. A gas containing loop of bowel overlies the pelvis. Moderate to large amount of stool projects over the right and left hemiabdomen and pelvis. Levoconvex lumbar curvature. Procedure Note Vin Presley, DO - 05/09/2025 EXAMINATION: XR ABDOMEN AP 1 VIEW HISTORY:shortness of breath TECHNIQUE: A total of 4 views view(s) of the abdomen and were obtained. COMPARISON:Abdominal radiographs dated 05/04/2025 and 09/14/2024. CT abdomen and pelvis dated 05/01/2025. FINDINGS: There are gas-filled loops of large and small bowel. A gas containing loop of bowel overlies the pelvis. Moderate to large amount of stool projects over the right and left hemiabdomen and pelvis. Levoconvex lumbar curvature. IMPRESSION: Nonobstructed bowel gas pattern. Electronically signed by: Vin Presley D.O. Erik Holbrook MD IMG XR PROCEDURES F inal Result * (ABNORMAL) Urinalysis reflex to microscopic and culture Urine (05/09/2025 7:53 AM SURFACE PLATE FINISHER) Color, ur Yellow Yellow Clarity, ur Clear Clear [facility] ([place]) Specific gravity, ur 1.043(H) 1.003 - 1.030 [facility] ([place]) pH, urine 6.0 [facility] ([place]) Comment: Interpretive Data U rine pH is affected by diet, medications, systemic acid-base disturbances, and renal tubular function. pH may affect urinary stone formation. For example, urine pH below 6.0 may help reduce the tendency for calcium phosphate stones and pH greater than 6.0 may reduce the tendency for uric acid stone formation. Source: [place] [employer] Current Interpretive Data was last revised on 2017 Protein, ur ql Trace Negative [facility] ([place]) Glucose, ur ql 4+(A) Negative [facility] ([place]) Ketones, ur Negative Negative [facility] ([place]) Bilirubin, ur Negative Negative [facility] ([place]) Blood, ur Negative Negative [facility] ([place]) Urobilinogen, ur <2.0 <2.0 mg/dL [facility] ([place]) Nitrite, ur Negative Negative [facility] ([place]) Leukocyte esterase, ur Negative Negative [facility] ([place]) UA reflex comment Reflex conditions for microscopic UA and culture not met. [facility] ([place]) Urine 05/09/2025 7:53 AM SURFACE PLATE FINISHER 05/09/2025 7:58 AM SURFACE PLATE FINISHER Narrative [facility] ([place]) - 05/09/2025 8:13 AM SURFACE PLATE FINISHER If patient unable to urinate, straight cath Erik Holbrook MD LAB MICROBIOLOGY - GENERAL ORDERABLES Final Result AURELIO RUSH SERGIO) 1 [facility] Department [place] [address] * (ABNORMAL) Troponin T high-sensitivity series (baseline, 2hr, 4hr, 6hr) (05/09/2025 7:36 AM SURFACE PLATE FINISHER) Trop T hs 20(H) <=14 ng/L Comment: Interpretive Data For further hscTnT resources including the diagnostic algorithm and an aid in interpretation, copy and paste this link: https://nrl.testcatalog.org/show/hsTrop Current Interpretive Data last revised 2020. Blood 05/09/2025 7:36 AM SURFACE PLATE FINISHER 05/09/2025 7:46 AM SURFACE PLATE FINISHER us Erik Holbrook MD LAB BLOOD ORDERABLE S Final Result Performing Organization Address City/[facility] Co de Phone Number AURELIO GrimesROANN) 1 [facility] Department [place] [address] * eGFR (05/09/2025 7:36 AM SURFACE PLATE FINISHER) eGFR >90 >=60 mL/min/1. 73 m2 Comment: [...] interpretive data was last reviewed 2021. Blood 05/09/2025 7:36 AM SURFACE PLATE FINISHER 05/09/2025 7:43 AM SURFACE PLATE FINISHER us Erik Holbrook MD LAB BLOOD ORDERABLE S Final Result AURELIO RUSH ([place]ANN) 1 [facility] Department [place] [address] * (ABNORMAL) Differential, auto (05/09/2025 7:36 AM SURFACE PLATE FINISHER) Neutrophil abs 6.37 1.50 - 6.50 K/cumm Imm gran abs 0.07 0.00 - 0.10 K/cumm [facility] ([place]) Lymphocyte abs 2.38 0.80 - 3.30 K/cumm [facility] ([place]) Monocyte abs 1.13(H) 0.20 - 0.80 K/cumm [facility] ([place]) Eosinophil abs 0.30 0.00 - 0.50 K/cumm [facility] ([place]) Basophil abs 0.10 0.00 - 0.10 K/cumm [facility] ([place]) Neutrophil pct 61.5 % [facility] ([place]) Comment: Interpretive [...] was last revised on 2017. Lymphocyte pct 23.0 % [facility] ([place]) Comment: Interpretive Data Percent cell count reference ranges are not reported, since discordance with absolute values may lead to misinterpretation of CBC data. Current Interpretive Data was last revised on 2017. Monocyte pct 10.9 % [facility] ([place]) Comment: Interpretive Data [...] was last revised on 2017. Basophil pct 1.0 % [facility] ([place]) Comment: Interpretive Data Percent cell count reference ranges are not reported, since discordance with absolute values may lead to misinterpretation of CBC data. Current Interpretive Data was last revised on 2017. Blood 05/09/2025 7:36 AM SURFACE PLATE FINISHER 05/09/2025 7:43 AM SURFACE PLATE FINISHER us Erik Holbrook MD LAB BLOOD ORDERABLE S Final Result [facility] ([place]) 1 [facility] Department [place] [address] * (ABNORMAL) CBC with auto differential (05/09/2025 7:36 AM SURFACE PLATE FINISHER) WBC 10.35(H) 3.80 - 9.90 K/cumm Hgb 14.9 11.9 - 15.5 g/dL [facility] ([place]) Hct 42.4 35.6 - 45.5 % [facility] ([place]) Plt 287 150 - 400 K/cumm [facility] ([place]) MPV 9.8 9.1 - 12.3 fL [facility] ([place]) RBC 4.69 3.90 - 5.20 M/cumm [facility] ([place]) MCV 90.4 81.3 - 96.4 fL [facility] ([place]) MCH 31.8 27.1 - 33.3 pg [facility] ([place]) MCHC 35.1 32.3 - 35.7 g/dL [facility] ([place]) RDW CV 11.9 11.1 - 14.9 % [facility] ([place]) RDW SD 39.5 35.7 - 48.1 fL [facility] ([place]) NRBC abs 0.00 0.00 - 0.01 K/cumm [facility] ([place]) Blood 05/09/2025 7:36 AM SURFACE PLATE FINISHER 05/09/2025 7:43 AM SURFACE PLATE FINISHER Erik Holbrook MD LAB BLOOD ORDERABLE S Final Result AURELIO RUSH (ROANN) 1 [place] [address] * TSH (05/09/2025 7:36 AM SURFACE PLATE FINISHER) Thyroid Stimulating Hormone 4.15 0.30 - 4.20 mcIUnit/mL Blood 05/09/2025 7:36 AM SURFACE PLATE FINISHER 05/09/2025 7:46 AM SURFACE PLATE FINISHER Erik Holbrook MD LAB BLOOD ORDERABLE S Final Result Performing Organization Address City/[facility]/ZIP Co de Phone Number AURELIO RUSH (ROANN) 1 [place] [address] * Magnesium (05/09/2025 7:36 AM SURFACE PLATE FINISHER) Pathologist [facility] Magnesium 1.8 1.4 - 2.5 mg/dL Blood 05/09/2025 7:36 AM SURFACE PLATE FINISHER 05/09/2025 7:46 AM SURFACE PLATE FINISHER Erik Holbrook MD LAB BLOOD ORDERABLE S Final Result Performing Organization Address City/[facility]/ZIP Co de Phone Number AURELIO RUSH (ROANN) 1 [place] [address] * (ABNORMAL) Comprehensive metabolic panel (05/09/2025 7:36 AM SURFACE PLATE FINISHER) Sodium 130(L) 135 - 145 mmol/L Potassium, pl 3.9 3.3 - 4.9 mmol/L [facility] ([place]IO) Chloride 94(L) 97 - 110 mmol/L [facility] ([place]) CO2 26 22 - 32 mmol/L [facility] ([place]) Anion gap 10 2 - 15 mmol/L [facility] ([place]) BUN 21 6 - 25 mg/dL [facility] ([place]) Creatinine 0.72 0.60 - 1.10 mg/dL [facility] ([place]) Glucose 234(H) 70 - 199 mg/dL [facility] ([place]) [...] 10.3 mg/dL [facility] ([place]) Bilirubin, total 0.5 0.1 - 1.2 mg/dL [facility] ([place]) Protein, pl 6.6 6.5 - 8.5 g/dL [facility] ([place]) Albumin 3.6 3.5 - 5.0 g/dL [facility] ([place]) Alk phos 105 40 - 130 Units/L [facility] ([place]) ALT 24 7 - 45 Units/L [facility] ([place]) AST 22 10 - 45 Units/L [facility] ([place]) Blood 05/09/2025 7:36 AM SURFACE PLATE FINISHER 05/09/2025 7:43 AM SURFACE PLATE FINISHER us Erik Holbrook MD LAB BLOOD ORDERABLE S Final Result [facility] ([place]) 1 [facility] Department [place] [address] * ECG 12 lead (05/09/2025 7:33 AM SURFACE PLATE FINISHER) 05/09/2025 7:33 AM SURFACE PLATE FINISHER Narrative [facility] - 05/11/2025 6:56 AM SURFACE PLATE FINISHER Vent Rate: 90 bpm RR Interval: 662 msec SC Interval: 189 msec QRS Duration: 97 msec QT Interval: 333 msec QTC Interval: 381 msec P-R-T [place]: 54 - 31 - 62 degrees IMPRESSION: SINUS RHYTHM LOW QRS VOLTAGE IN PRECORDIAL LEADS [QRS DEFLECTION < 1.0 mV IN CHEST LEADS] BORDERLINE ECG NO CHANGE FROM PREVIOUS TRACING NOTED Electronically Signed By: Joby Marie MD Erik Holbrook MD ECG ORDERABLES Fin al Result Performing Organization Address City/[facility]/ZIP Co de Phone Number [facility] * POCT glucose (05/04/2025 10:35 AM SURFACE PLATE FINISHER) Glucose, POC 184 70 - 199 mg/dL Blood 05/04/2025 10:3 5 AM SURFACE PLATE FINISHER 05/04/2025 10:35 AM SURFACE PLATE FINISHER us Shamar Watson MD LAB POCT ORDERABLES - DEVICE Final Result Performing Organization Address [facility] Co de Phone Number AURELIO [facility] (ROANN) 1 [facility] Department [place] [address] * (ABNORMAL) Urinalysis reflex to microscopic and culture Urine (05/04/2025 8:33 AM SURFACE PLATE FINISHER) Color, ur Yellow Yellow Clarity, ur Clear Clear [facility] ([place]) Specific gravity, ur 1.022 1.003 - 1.030 [facility] ([place]) pH, urine 7.0 [facility] ([place]) Comment: Interpretive Data U rine pH is affected by diet, medications, systemic acid-base disturbances, and renal tubular function. pH may affect urinary stone formation. For example, urine pH below 6.0 may help reduce the tendency for calcium phosphate stones and pH greater than 6.0 may reduce the tendency for uric acid stone formation. Source: [facility] [place] Current Interpretive Data was last revised on 2017 Protein, ur ql Trace Negative [facility] ([place]) Glucose, ur ql 4+(A) Negative [facility] ([place]) Ketones, ur 1+(A) Negative [facility] ([place]) Bilirubin, ur Negative Negative [facility] ([place]) Blood, ur Negative Negative [facility] ([place]) Urobilinogen, ur <2.0 <2.0 mg/dL [facility] ([place]) Nitrite, ur Negative Negative [facility] ([place]) Leukocyte esterase, ur Negative Negative [facility] ([place]) UA reflex comment Reflex conditions for microscopic UA and culture not met. [facility] ([place]) Urine 05/04/2025 8:33 AM SURFACE PLATE FINISHER 05/04/2025 8:36 AM SURFACE PLATE FINISHER us Shamar Watson MD LAB MICROBIOLOGY - GENERAL O RDERABLES Final Result [facility] ([place]ANN) 1 [facility] Department [place] [address] * XR Abdomen 2 Views W Chest 1 View (05/04/2025 7:54 AM SURFACE PLATE FINISHER) Anatomical Region Laterality Modality Body, Abdomen N/A Computed Radiogr aphy 05/04/2025 7:58 AM SURFACE PLATE FINISHER Impressions 05/04/2025 7:58 AM SURFACE PLATE FINISHER 1. Moderate amount stool in the ascending colon. No dilated loops of bowel to suggest obstruction. 2. No free air. 3. No acute radiographic abnormality of the chest. Electronically signed by: Go Real M.D. Narrative 05/04/2025 7:58 AM SURFACE PLATE FINISHER EXAM DESCRIPTION: XR ABDOMEN 2 VIEWS W CHEST 1 VIEW REASON FOR STUDY: Abdominal pain with nausea and vomiting for 6 days. TECHNIQUE: Upright and supine radiographic views of the abdomen. PA view of the chest was also obtained. COMPARISON: Chest radiograph 03/29/2025, CT abdomen and pelvis 05/01/2025 FINDINGS: LUNGS/PLEURAE: No consolidation or pneumothorax. No large pleural effusion. HEART/MEDIASTINUM: Heart size is normal. Normal mediastinal and hilar contours. HARDWARE/LINES/TUBES: None. BONES: No acute findings. BOWEL: Moderate amount stool in the ascending colon. No dilated loops of bowel to suggest obstruction. No significant air-fluid levels. No free air. SOFT TISSUES: No abnormal calcifications. LINES/TUBES: None. BONES: Mild thoracolumbar spondylosis. Postoperative change in the lower cervical spine. Procedure Note Go Real MD - 05/04/2025 EXAM DESCRIPTION: XR ABDOMEN 2 VIEWS W CHEST 1 VIEW REASON FOR STUDY: Abdominal pain with nausea and vomiting for 6 days. TECHNIQUE: Upright and supine radiographic views of the abdomen. PA view of the chest was also obtained. COMPARISON: Chest radiograph 03/29/2025, CT abdomen and pelvis 05/01/2025 FINDINGS: LUNGS/PLEURAE: No consolidation or pneumothorax. No large pleural effusion. HEART/MEDIASTINUM: Heart size is normal. Normal mediastinal and hilar contours. HARDWARE/LINES/TUBES: None. BONES: No acute findings. BOWEL: Moderate amount stool in the ascending colon. No dilated loops of bowel to suggest obstruction. No significant air-fluid levels. No free air. SOFT TISSUES: No abnormal calcifications. LINES/TUBES: None. BONES: Mild thoracolumbar spondylosis. Postoperative change in the lower cervical spine. IMPRESSION: 1. Moderate amount stool in the ascending colon. No dilated loops of bowel to suggest obstruction. 2. No free air. 3. No acute radiographic abnormality of the chest. Electronically signed by: Go Real M.D. Shamar Watson MD IMG XR PROCEDURES Final Resu lt * eGFR (05/04/2025 7:35 AM SURFACE PLATE FINISHER) eGFR >90 >=60 mL/min/1. 73 m2 Comment: [...] interpretive data was last reviewed 2021. Blood 05/04/2025 7:35 AM SURFACE PLATE FINISHER 05/04/2025 8:02 AM SURFACE PLATE FINISHER us Shamar Watson MD LAB BLOOD ORDERABLES Final R esult [facility] ([place]) 1 [facility] Department [place] [address] * Differential, auto (05/04/2025 7:35 AM SURFACE PLATE FINISHER) Neutrophil abs 3.50 1.50 - 6.50 K/cumm Imm gran abs 0.00 0.00 - 0.10 K/cumm [facility] ([place]) Lymphocyte abs 1.25 0.80 - 3.30 K/cumm [facility] ([place]) Monocyte abs 0.67 0.20 - 0.80 K/cumm [facility] ([place]) Eosinophil abs 0.10 0.00 - 0.50 K/cumm [facility] ([place]) Basophil abs 0.03 0.00 - 0.10 K/cumm [facility] ([place]) Neutrophil pct 63.1 % [facility] ([place]) Comment: Interpretive Data Percent cell count reference ranges are not reported, since discordance with absolute values may lead to misinterpretation of CBC data. Current Interpretive Data was last revised on 2017. Imm gran pct 0.0 % [facility] ([place]) Comment: Interpretive Data Percent cell count reference ranges are not reported, since discordance with absolute values may lead to misinterpretation of CBC data. Current Interpretive Data was last revised on 2017. Lymphocyte pct 22.5 % [facility] ([place]) Comment: Interpretive Data Percent cell count reference ranges are not reported, since discordance with absolute values may lead to misinterpretation of CBC data. Current Interpretive Data was last revised on 2017. Monocyte pct 12.1 % [facility] ([place]) Comment: Interpretive Data Percent cell count reference ranges are not reported, since discordance with absolute values may lead to misinterpretation of CBC data. Current Interpretive Data was last revised on 2017. Eosinophil pct 1.8 % [facility] ([place]) Comment: Interpretive [...] Data was last revised on 2017. Blood 05/04/2025 7:35 AM SURFACE PLATE FINISHER 05/04/2025 8:02 AM SURFACE PLATE FINISHER us Shamar Watson MD LAB BLOOD ORDERABLES Final R esult [facility] ([place]) 1 [facility] Department [place] [address] * (ABNORMAL) CBC with auto differential (05/04/2025 7:35 AM SURFACE PLATE FINISHER) WBC 5.55 3.80 - 9.90 K/cumm Hgb 16.2(H) 11.9 - 15.5 g/dL [facility] ([place]) Hct 46.5(H) 35.6 - 45.5 % [facility] ([place]) Plt 187 150 - 400 K/cumm [facility] ([place]) MPV 10.9 9.1 - 12.3 fL [facility] ([place]) RBC 5.19 3.90 - 5.20 M/cumm [facility] ([place]) MCV 89.6 81.3 - 96.4 fL [facility] ([place]) MCH 31.2 27.1 - 33.3 pg [facility] ([place]) MCHC 34.8 32.3 - 35.7 g/dL [facility] ([place]) RDW CV 11.9 11.1 - 14.9 % [facility] ([place]) RDW SD 39.2 35.7 - 48.1 fL [facility] ([place]) NRBC abs 0.00 0.00 - 0.01 K/cumm [facility] ([place]) Blood 05/04/2025 7:35 AM SURFACE PLATE FINISHER 05/04/2025 8:02 AM SURFACE PLATE FINISHER Shamar Watson MD LAB BLOOD ORDERABLES Final R esult [facility] ([place]) [address] [place] [address] * Lipase (05/04/2025 7:35 AM SURFACE PLATE FINISHER) Lipase 25 10 - 99 Units/L Blood 05/04/2025 7:35 AM SURFACE PLATE FINISHER 05/04/2025 8:02 AM SURFACE PLATE FINISHER Shamar Watson MD LAB BLOOD ORDERABLES Final R esult Performing Organization Address [facility] Co de Phone Number [facility] ([place]) [address] [place] [address] * (ABNORMAL) Comprehensive metabolic panel (05/04/2025 7:35 AM SURFACE PLATE FINISHER) Sodium 128(L) 135 - 145 mmol/L Potassium, pl 4.0 3.3 - 4.9 mmol/L [facility] ([place]) Chloride 91(L) 97 - 110 mmol/L [facility] ([place]) CO2 26 22 - 32 mmol/L [facility] ([place]) Anion gap 11 2 - 15 mmol/L [facility] ([place]) BUN 10 6 - 25 mg/dL [facility] ([place]) Creatinine 0.57(L) 0.60 - 1.10 mg/dL [facility] ([place]) Glucose 224(H) 70 - 199 mg/dL [facility] ([place]) Comment: Interpretive Data Fasting glucose [...] interpretive data was last revised 2022. Calcium 9.3 8.5 - 10.3 mg/dL [facility] ([place]) Bilirubin, total 0.4 0.1 - 1.2 mg/dL [facility] ([place]) Protein, pl 7.4 6.5 - 8.5 g/dL [facility] ([place]) Albumin 4.1 3.5 - 5.0 g/dL [facility] ([place]) Alk phos 115 40 - 130 Units/L [facility] ([place]) ALT 56(H) 7 - 45 Units/L [facility] ([place]) AST 38 10 - 45 Units/L [facility] ([place]) Comment:Hemolysis present. R esults may be affected. Blood 05/04/2025 7:35 AM SURFACE PLATE FINISHER 05/04/2025 8:02 AM SURFACE PLATE FINISHER Shamar Watson MD LAB BLOOD ORDERABLES Final R esult [facility] ([place]) 1 [facility] Department of Laboratories [place] [id number] * (ABNORMAL) Urinalysis reflex to microscopic and culture Urine (05/01/2025 10:06 AM SURFACE PLATE FINISHER) Color, ur Yellow Yellow Clarity, ur Clear Clear [facility] ([place]) Specific gravity, ur 1.020 1.003 - 1.030 [facility] ([place]) Comment:performed by manual dip [id number] pH, urine 6.0 [facility] ([place]) Comment: Interpretive Data U rine pH is affected by diet, medications, systemic acid-base disturbances, and renal tubular function. pH may affect urinary stone formation. For example, urine pH below 6.0 may help reduce the tendency for calcium phosphate stones and pH greater than 6.0 may reduce the tendency for uric acid stone formation. Source: [facility] [place] Current Interpretive Data was last revised on 2017 Protein, ur ql 1+(A) Negative [facility] ([place]) Glucose, ur ql 4+(A) Negative [facility] ([place]) Ketones, ur 1+(A) Negative [facility] ([place]) Bilirubin, ur Negative Negative [facility] ([place]) Blood, ur Negative Negative [facility] ([place]) Urobilinogen, ur <2.0 <2.0 mg/dL [facility] ([place]) Nitrite, ur Negative Negative [facility] ([place]) Leukocyte esterase, ur Negative Negative [facility] ([place]) UA reflex comment Reflex to microscopic UA will be performed. [facility] ([place]) Urine 05/01/2025 10:0 6 AM SURFACE PLATE FINISHER 05/01/2025 10:09 AM SURFACE PLATE FINISHER Erik Holbrook MD LAB MICROBIOLOGY - GENERAL ORDERABLES Final Result Performing Organization Address [facility] Co de Phone Number [facility] ([place]) [address] [place] [address] [place] [address] * (ABNORMAL) Urinalysis, microscopic only (05/01/2025 10:06 AM SURFACE PLATE FINISHER) WBC, ur 0-5 0 - 5 /HPF RBC, ur 21-50(A) 0 - 2 /HPF [facility] ([place]) Epithelial cells, squamous, ur 21-50(A) 0 - 5 /HPF [facility] ([place]) Bacteria, ur Trace(A) [facility] ([place]) Mucous, ur Present(A) [facility] ([place]) Culture Reflex Comment Reflex conditions for urine culture (WBC >10) not met. [facility] ([place]) Urine 05/01/2025 10:0 6 AM SURFACE PLATE FINISHER 05/01/2025 10:09 AM SURFACE PLATE FINISHER us Erik Holbrook MD LAB URINE ORDERABLE S Final Result Performing Organization Address [facility] Co de Phone Number [facility] ([place]) 1 [facility] [place] [address] * CT Abdomen Pelvis W Contrast (05/01/2025 8:17 AM SURFACE PLATE FINISHER) Anatomical Region Laterality Modality Body N/A Computed Tomogra phy 05/01/2025 8:39 AM SURFACE PLATE FINISHER Impressions 05/01/2025 8:39 AM SURFACE PLATE FINISHER 1. No acute findings of the abdomen or pelvis. 2. Colonic diverticulosis. Electronically signed by: Dennys Chavez M.D. Narrative 05/01/2025 8:39 AM SURFACE PLATE FINISHER EXAMINATION: CT ABDOMEN PELVIS W CONTRAST ORDERING HEALTHCARE PROVIDER: ERIK HOLBROOK HISTORY: Bowel obstruction suspected. TECHNIQUE: CT abdomen and pelvis with contrast . Reconstructed coronal and sagittal MPR images reviewed. All images stored on PACS. Automated exposure control was used as a dose optimization technique for this examination. COMPARISON: None FINDINGS: LOWER CHEST: The lung bases are clear. The heart is normal in size without pericardial effusion. LIVER: Normal in size. No identified cystic or solid masses. GALLBLADDER:No radiopaque gallstones are seen. BILIARY: No intrahepatic or extrahepatic ductal dilatation. SPLEEN: Normal length. No focal lesions. PANCREAS: No identified cystic or solid masses. No significant calcifications. No adjacent inflammation or peripancreatic fluid collections. Pancreatic duct is not dilated. ADRENALS: No discrete nodules. KIDNEYS/URINARY TRACT: No identified significant cystic or solid masses. No stones. No hydronephrosis or hydroureter. The urinary bladder is unremarkable. GI: No dilated bowel loops. No obvious wall thickening. Normal appendix. Colonic diverticulosis. PERITONEUM: No free intraperitoneal air or ascites. RETROPERITONEUM:No mass or adenopathy REPRODUCTIVE:No significant abnormality VASCULATURE: No abdominal aortic aneurysm. MUSCULOSKELETAL: No acute findings. OTHER: No other acute findings. Procedure Note Dennys Chavez MD - 05/01/2025 EXAMINATION: CT ABDOMEN PELVIS W CONTRAST ORDERING HEALTHCARE PROVIDER: ERIK HOLBROOK HISTORY: Bowel obstruction suspected. TECHNIQUE: CT abdomen and pelvis with contrast . Reconstructed coronal and sagittal MPR images reviewed. All images stored on PACS. Automated exposure control was used as a dose optimization technique for this examination. COMPARISON: None FINDINGS: LOWER CHEST: The lung bases are clear. The heart is normal in size without pericardial effusion. LIVER: Normal in size. No identified cystic or solid masses. GALLBLADDER:No radiopaque gallstones are seen. BILIARY: No intrahepatic or extrahepatic ductal dilatation. SPLEEN: Normal length. No focal lesions. PANCREAS: No identified cystic or solid masses. No significant calcifications. No adjacent inflammation or peripancreatic fluid collections. Pancreatic duct is not dilated. ADRENALS: No discrete nodules. KIDNEYS/URINARY TRACT: No identified significant cystic or solid masses. No stones. No hydronephrosis or hydroureter. The urinary bladder is unremarkable. GI: No dilated bowel loops. No obvious wall thickening. Normal appendix. Colonic diverticulosis. PERITONEUM: No free intraperitoneal air or ascites. RETROPERITONEUM:No mass or adenopathy REPRODUCTIVE:No significant abnormality VASCULATURE: No abdominal aortic aneurysm. MUSCULOSKELETAL: No acute findings. OTHER: No other acute findings. IMPRESSION: 1. No acute findings of the abdomen or pelvis. 2. Colonic diverticulosis. Electronically signed by: Dennys Chavez M.D. Erik Holbrook MD IMG CT PROCEDURES F inal Result * Sepsis Lactate w/ Reflex (05/01/2025 7:45 AM SURFACE PLATE FINISHER) Pathologist [facility] Sepsis Lactate 1.3 0.7 - 2.0 mmol/L Blood 05/01/2025 7:45 AM SURFACE PLATE FINISHER 05/01/2025 7:47 AM SURFACE PLATE FINISHER Erik Holbrook MD LAB BLOOD ORDERABLE S Final Result [facility] [place] 1 [facility] Department [place] [address] * eGFR (05/01/2025 7:45 AM SURFACE PLATE FINISHER) Pathologist [facility] eGFR >90 >=60 mL/min/1. 73 m2 Comment: [...] interpretive data was last reviewed 2021. Blood 05/01/2025 7:45 AM SURFACE PLATE FINISHER 05/01/2025 7:47 AM SURFACE PLATE FINISHER us Erik Holbrook MD LAB BLOOD ORDERABLE S Final Result [facility] ([place]) 1 [facility] Department [place] [address] * (ABNORMAL) Differential, auto (05/01/2025 7:45 AM SURFACE PLATE FINISHER) Neutrophil abs 3.36 1.50 - 6.50 K/cumm Imm gran abs 0.01 0.00 - 0.10 K/cumm [facility] ([place]) Lymphocyte abs 0.79(L) 0.80 - 3.30 K/cumm [facility] ([place]) Monocyte abs 0.34 0.20 - 0.80 K/cumm [facility] ([place]) Eosinophil abs 0.09 0.00 - 0.50 K/cumm [facility] ([place]) Basophil abs 0.01 0.00 - 0.10 K/cumm [facility] ([place]) Neutrophil pct 73.0 % [facility] ([place]) Comment: Interpretive Data Percent cell count reference ranges are not reported, since discordance with absolute values may lead to misinterpretation of CBC data. Current Interpretive Data was last revised on 2017. Imm gran pct 0.2 % [facility] ([place]) Comment: Interpretive Data Percent cell count reference ranges are not reported, since discordance with absolute values may lead to misinterpretation of CBC data. Current Interpretive Data was last revised on 2017. Lymphocyte pct 17.2 % [facility] ([place]) Comment: Interpretive Data Percent cell count reference ranges are not reported, since discordance with absolute values may lead to misinterpretation of CBC data. Current Interpretive Data was last revised on 2017. Monocyte pct 7.4 % [facility] ([place]) Comment: Interpretive Data Percent cell count reference ranges are not reported, since discordance with absolute values may lead to misinterpretation of CBC data. Current Interpretive Data was last revised on 2017. Eosinophil pct 2.0 % [facility] ([place]) Comment: Interpretive [...] Data was last revised on 2017. Blood 05/01/2025 7:45 AM SURFACE PLATE FINISHER 05/01/2025 7:48 AM SURFACE PLATE FINISHER us Erik Holbrook MD LAB BLOOD ORDERABLE S Final Result [facility] ([place]) 1 [facility] Department [place] [address] * (ABNORMAL) CBC with auto differential (05/01/2025 7:45 AM SURFACE PLATE FINISHER) WBC 4.60 3.80 - 9.90 K/cumm Hgb 16.3(H) 11.9 - 15.5 g/dL [facility] ([place]) Hct 48.2(H) 35.6 - 45.5 % [facility] ([place]) Plt 151 150 - 400 K/cumm [facility] ([place]) MPV 9.9 9.1 - 12.3 fL [facility] ([place]) RBC 5.14 3.90 - 5.20 M/cumm [facility] ([place]) MCV 93.8 81.3 - 96.4 fL [facility] ([place]) MCH 31.7 27.1 - 33.3 pg [facility] ([place]) MCHC 33.8 32.3 - 35.7 g/dL [facility] ([place]) RDW CV 12.1 11.1 - 14.9 % [facility] ([place]) RDW SD 42.6 35.7 - 48.1 fL [facility] ([place]) NRBC abs 0.00 0.00 - 0.01 K/cumm [facility] ([place]) Blood 05/01/2025 7:45 AM SURFACE PLATE FINISHER 05/01/2025 7:48 AM SURFACE PLATE FINISHER Erik Holbrook MD LAB BLOOD ORDERABLE S Final Result [facility] ([place]) 1 [facility] [place] [address] * Lipase (05/01/2025 7:45 AM SURFACE PLATE FINISHER) [facility] Lipase 67 10 - 99 Units/L Blood 05/01/2025 7:45 AM SURFACE PLATE FINISHER 05/01/2025 7:47 AM SURFACE PLATE FINISHER Erik Holbrook MD LAB BLOOD ORDERABLE S Final Result Performing Organization Address City/[facility] Co de Phone Number [facility] ([place]) 1 [facility] [place] [address] * (ABNORMAL) Comprehensive metabolic panel (05/01/2025 7:45 AM SURFACE PLATE FINISHER) Pathologist [facility] Sodium 132(L) 135 - 145 mmol/L Potassium, pl 4.2 3.3 - 4.9 mmol/L [facility] ([place]) Chloride 97 97 - 110 mmol/L [facility] ([place]) CO2 24 22 - 32 mmol/L [facility] ([place]) Anion gap 11 2 - 15 mmol/L [facility] ([place]) BUN 9 6 - 25 mg/dL [facility] ([place]) Creatinine 0.65 0.60 - 1.10 mg/dL [facility] ([place]) Glucose 236(H) 70 - 199 mg/dL [facility] ([place]) Comment: Interpretive Data Fasting glucose [...] 10.3 mg/dL [facility] ([place]) Bilirubin, total 0.3 0.1 - 1.2 mg/dL [facility] ([place]) Protein, pl 7.0 6.5 - 8.5 g/dL [facility] ([place]) Albumin 4.0 3.5 - 5.0 g/dL [facility] ([place]) Alk phos 115 40 - 130 Units/L [facility] ([place]) ALT 80(H) 7 - 45 Units/L [facility] ([place]) AST 72(H) 10 - 45 Units/L [facility] ([place]) Blood 05/01/2025 7:45 AM SURFACE PLATE FINISHER 05/01/2025 7:47 AM SURFACE PLATE FINISHER us Erik Holbrook MD LAB BLOOD ORDERABLE S Final Result [facility] ([place]) 1 [facility] Department [place] [address] * (ABNORMAL) POCT glucose (04/01/2025 8:37 AM CDT) [facility] Signature Glucose, POC 221(H) 70 - 199 mg/dL Blood 04/01/2025 8:3 7 AM CDT 04/01/2025 8:37 AM CDT us Kee Velasquez MD LAB POCT ORDERABLES - DEVICE Final Result [facility] ([place]) 1 [facility] [place] [address] * (ABNORMAL) POCT glucose (04/01/2025 2:25 AM CDT) Glucose, POC 323(H) 70 - 199 mg/dL Blood 04/01/2025 2:25 AM CDT 04/01/2025 2:25 AM CDT Grace Maynard MD LAB POCT ORDERABLES - DEVICE Final Result [facility] ([place]) 1 [place] [address] * (ABNORMAL) POCT glucose (03/31/2025 8:15 PM CDT) [facility] Glucose, POC 345(H) 70 - 199 mg/dL Blood 03/31/2025 8:15 PM CDT 03/31/2025 8:15 PM CDT Grace Maynard MD LAB POCT ORDERABLES - DEVICE Final Result [facility] ([place]) 1 [place] [address] * (ABNORMAL) Drugs of Abuse Screen, Urine [...] 2023. Barbiturates, ur Not Detected CutOff 200ng/mL [facility] ([place]) Comment: Interpretive Data - Barbiturates: Samples [...] 2023. Opiates, ur Not Detected CutOff 300ng/mL [facility] ([place]) Comment: Interpretive Data - Opiates: Samples [...] cocaine, fentanyl, methadone, opiates, oxycodone, and phencyclidine. Kee Velasquez MD LAB URINE ORDERABLES Final R esult [facility] ([place]) 1 [facility] Department [place] [address] * (ABNORMAL) Amphetamine Confirmation, Urine (03/31/2025 5:29 PM CDT) [facility] Amphetamine Conf, Ur Confirmed Positive(A) CutOff 150ng/mL Comment:Testing performed by : [facility], 1 [facility], [address] Methamphetamine Conf, Ur Confirmed Positive(A) CutOff 150ng/mL [facility] ([place]) Comment:Testing performed by : [facility], [address] [place]., [address] MDA Conf, Ur Does Not Confirm CutOff 150ng/mL [facility] ([place]) Comment:Testing performed by : [facility], [address] [place]., [address] MDMA Conf, Ur Does Not Confirm CutOff 50 ng/mL [facility] ([place]) Comment:Testing performed by : [facility], [address] [place]., [address] MDEA Conf, Ur Does Not Confirm CutOff 150ng/mL [facility] ([place]) Comment:Testing performed by : [facility], 1 [facility], [address] MBDB Conf, Ur Does Not Confirm CutOff 150ng/mL [facility] ([place]) Comment: Interpretive Data This test detects the presence or absence of drug compounds using LC Tandem mass spectrometry. While this test is highly specific, false positive and false negative results may occur in very rare circumstances. Contact the laboratory for consultation, if needed. Performance characteristics were determined by the [facility] in a manner consistent with CLIA requirement and has not been cleared or approved by the U.S. Food and Drug Administration. Current interpretive data was last revised on 2020. Testing performed by: [facility], [address] [facility], [address] Urine 03/31/2025 5:29 PM CDT 03/31/2025 8:20 PM CDT us Kee Velasquez MD LAB URINE ORDERABLES Final R esult [facility] ([place]) 1 [facility] Department [place] [address] * (ABNORMAL) POCT glucose (03/31/2025 5:13 PM CDT) Glucose, POC 454(C) 70 - 199 mg/dL Comment:Glu2: RN/MD Notified Blood 03/31/2025 5:13 PM CDT 03/31/2025 5:13 PM CDT us Grace Maynard MD LAB POCT ORDERABLES - DEVICE Final Result Performing Organization Address City/[facility]/ZIP Co de Phone Number [facility] ([place]) 1 [facility] [place] [address] * (ABNORMAL) POCT glucose (03/31/2025 3:10 PM CDT) Glucose, POC 413(H) 70 - 199 mg/dL Blood 03/31/2025 3:10 PM CDT 03/31/2025 3:10 PM CDT Grace Maynard MD LAB POCT ORDERABLES - DEVICE Final Result Performing Organization Address [facility] Co de Phone Number [facility] ([place]) 1 [facility] [place] [address] * (ABNORMAL) POCT glucose (03/31/2025 12:15 PM CDT) Glucose, POC 234(H) 70 - 199 mg/dL Blood 03/31/2025 12:1 5 PM CDT 03/31/2025 12:15 PM CDT Grace Maynard MD LAB POCT ORDERABLES - DEVICE Final Result Performing Organization Address City/[facility]/ZIP Co de Phone Number [facility] ([place]) 1 [facility] [place] [address] * (ABNORMAL) POCT glucose (03/31/2025 11:38 AM CDT) Glucose, POC 229(H) 70 - 199 mg/dL Blood 03/31/2025 11:3 8 AM CDT 03/31/2025 11:38 AM CDT us Grace Maynard MD LAB POCT ORDERABLES - DEVICE Final Result [facility]) 1 [facility] [place] [address] * POCT glucose (03/31/2025 8:00 AM CDT) Glucose, POC 115 70 - 199 mg/dL Blood 03/31/2025 8:00 AM CDT 03/31/2025 8:00 AM CDT Grace Maynard MD LAB POCT ORDERABLES - DEVICE Final Result Performing Organization Address City/[facility]/ZIP Co de Phone Number [facility] ([place]) 1 [facility] [place] [address] * eGFR (03/31/2025 2:27 AM CDT) eGFR [...] CDT 03/31/2025 2:39 AM CDT us Valeriano Burton MD LAB BLOOD ORDERABLES Final Resu lt [facility] ([place]) 1 [facility] Department [place] [address] * (ABNORMAL) Differential, auto (03/31/2025 2:27 AM CDT) Neutrophil abs 9.57(H) 1.50 - 6.50 K/cumm Imm gran abs 0.09 0.00 - 0.10 K/cumm [facility] ([place]) Lymphocyte abs 2.94 0.80 - 3.30 K/cumm [facility] ([place]) Monocyte abs 0.96(H) 0.20 - 0.80 K/cumm [facility] ([place]) Eosinophil abs 0.02 0.00 - 0.50 K/cumm [facility] ([place]) Basophil abs 0.04 0.00 - 0.10 K/cumm [facility] ([place]) Neutrophil pct 70.3 % [facility] ([place]) Comment: Interpretive Data Percent cell count reference ranges are not reported, since discordance with absolute values may lead to misinterpretation of CBC data. Current Interpretive Data was last revised on 2017. Imm gran pct 0.7 % [facility] ([place]) Comment: Interpretive Data Percent cell count reference [...] 2017. Monocyte pct 7.0 % [facility] ([place]) Comment: Interpretive Data Percent cell count reference ranges are not reported, since discordance with absolute values may lead to misinterpretation of CBC data. Current Interpretive Data was last revised on 2017. Eosinophil pct 0.1 % [facility] ([place]) Comment: Interpretive Data Percent cell count reference [...] CDT 03/31/2025 2:39 AM CDT us Valeriano Burton MD LAB BLOOD ORDERABLES Final Resu lt [facility] ([place]) 1 [facility] Department [place] [address] * (ABNORMAL) CBC with auto differential (03/31/2025 [...] RDW SD 44.9 35.7 - 48.1 fL [facility] ([place]) NRBC abs 0.00 0.00 - 0.01 K/cumm [facility] ([place]) Blood 03/31/2025 2:27 AM CDT 03/31/2025 2:39 AM CDT us Valeriano Burton MD LAB BLOOD ORDERABLES Final Resu lt Performing Organization Address City/[facility]/ZIP Co de Phone Number AURELIO RUSH (S[place]IO) 1 [facility] [place] [address] * (ABNORMAL) Hemoglobin A1c (03/31/2025 2:27 AM CDT) Hgb A1C 9.8(H) 4.0 - 5.6 % Estimated Average Glucose 235 mg/dL [facility] ([place]IO) Comment: The ADA recommends reporting an estimated Average Glucose (eAG) with all Hemoglobin A1c results using the equation derived from a study of 507 normal and diabetic adults. Minority populations were underrepresented and children were not included. (Diabetes Care 31:7672-3742, 2008). The eAG is not equivalent to a fasting glucose. Blood 03/31/2025 2:27 AM CDT 03/31/2025 2:39 AM CDT us Grace Maynard MD LAB BLOOD ORDERABLES Final Result Performing Organization Address City/[facility]/ZIP Co de Phone Number AURELIO RUSH (ROANN) 1 [facility] [place] [address] * (ABNORMAL) Comprehensive metabolic panel (03/31/2025 2:27 AM CDT) Sodium 138 135 - 145 mmol/L Potassium, pl 4.3 3.3 - 4.9 mmol/L [facility] ([place]) Chloride 102 97 - 110 mmol/L [facility] ([place]) CO2 26 22 - 32 mmol/L [facility] ([place]) Anion gap 10 2 - 15 mmol/L [facility] ([place]) BUN 21 6 - 25 mg/dL [facility] ([place]) Creatinine 0.62 0.60 - 1.10 mg/dL [facility] ([place]) Glucose 307(H) 70 - 199 mg/dL [facility] ([place]) Comment: Interpretive Data Fasting glucose >/= [...] CDT 03/31/2025 2:39 AM CDT us Valeriano Burton MD LAB BLOOD ORDERABLES Final Resu lt AURELIO RUSH ([place]) 1 [facility] [place] [address] * (ABNORMAL) POCT glucose (03/31/2025 2:03 AM CDT) Glucose, POC 281(H) 70 - 199 mg/dL Blood 03/31/2025 2:03 AM CDT 03/31/2025 2:03 AM CDT us Grace Maynard MD LAB POCT ORDERABLES - DEVICE Final Result [facility]IO [facility] ([place]) 1 [facility] [place] [address] * (ABNORMAL) POCT glucose (03/30/2025 8:05 PM CDT) Glucose, POC 288(H) 70 - 199 mg/dL Blood 03/30/2025 8:05 PM CDT 03/30/2025 8:05 PM CDT us Grace Maynard MD LAB POCT ORDERABLES - DEVICE Final Result AURELIO RUSH (ROANN) 1 [facility] [place] [address] * (ABNORMAL) POCT glucose (03/30/2025 4:50 PM CDT) Glucose, POC 418(H) 70 - 199 mg/dL Blood 03/30/2025 4:50 PM CDT 03/30/2025 4:50 PM CDT Grace Maynard MD LAB POCT ORDERABLES - DEVICE Final Result Performing Organization Address City/[facility]/ZIP Co de Phone Number AURELIO RUSH (ROANN) 1 [facility] [place] [address] * (ABNORMAL) POCT glucose (03/30/2025 3:01 PM CDT) Glucose, POC 417(H) 70 - 199 mg/dL Blood 03/30/2025 3:01 PM CDT 03/30/2025 3:01 PM CDT us Grace Maynard MD LAB POCT ORDERABLES - DEVICE Final Result Performing Organization Address City/[facility]/ZIP Co de Phone Number AURELIO RUSH (ROANN) 1 [facility] [place] [address] * (ABNORMAL) POCT glucose (03/30/2025 12:28 PM CDT) Glucose, POC 328(H) 70 - 199 mg/dL Blood 03/30/2025 12:2 8 PM CDT 03/30/2025 12:28 PM CDT us Triston Lynn Jr., MD LAB POCT ORDERABLES - DEVICE Final Result AURELIO RUSH [address] Department of Laboratories [place] [id number] * TRANSTHORACIC ECHO (TTE) COMPLETE W DOPPLER/CF W CONTRAST (03/30/2025 8:15 AM CDT) [facility] Estimated EF 65-70 % CONS SCIMAGE Anatomical Region Laterality Modality Ultrasound 03/30/2025 8:03 AM CDT Narrative 03/30/2025 11:22 AM CDT [address] [address] Echocardiogram Report Patient Name: MICHELLE LINARES : 1970 Study Date: 03/30/2025 8:03:16 AM Sex: F Tech: AMY Location: [id number] Ref Provider: VALERIANO BURTON Height(Cm): BSA: Weight(Kg): Quality: Definity contrast agent used to enhance endocardial border definition Order Provider: VALERIANO BURTON PROCEDURES: Echocardiographic Report: Transthoracic echocardiogram with complete [...] Procedure Note Joby Marie MD - 03/30/[address] [address] Echocardiogram Report Patient Name: MICHELLE LINARES : 1970 Study Date: 03/30/2025 8:03:16 AM Sex: F Tech: Location: [id number] Ref Provider: VALERIANO BURTON Height(Cm): BSA: Weight(Kg): Quality: Definity contrast agent used to enhance endocardial borderdefinition Order Provider: VALERIANO BURTON PROCEDURES: Echocardiographic Report: Transthoracic echocardiogram with complete [...] MD 03/30/2025 11:21:27 AM CDT us Valeriano Burton MD CV ECHO PROCEDURES Final Result * (ABNORMAL) POCT glucose (03/30/2025 7:50 AM CDT) Glucose, POC 200(H) 70 - 199 mg/dL Blood 03/30/2025 7:50 AM CDT 03/30/2025 7:50 AM CDT us Triston Lynn Jr., MD LAB POCT ORDERABLES - DEVICE Final Result [facility]LIO [facility] (ROANN) [address] [place] [address] [employer] [place] [address] * (ABNORMAL) POCT glucose (03/30/2025 3:15 AM CDT) Glucose, POC 308(H) 70 - 199 mg/dL Blood 03/30/2025 3:15 AM CDT 03/30/2025 3:15 AM CDT us Triston Lynn Jr., MD LAB POCT ORDERABLES - DEVICE Final Result [facility]IO [facility] ([place]ANN) [address] [place] [address] of [place] [address] * eGFR (03/30/2025 12:26 AM CDT) eGFR >90 >=60 mL/min/1. 73 [...] CDT 03/30/2025 12:29 AM CDT us Valeriano Burton MD LAB BLOOD ORDERABLES Final Resu lt AURELIO RUSH (ROANN) 1 [facility] Department [place] [address] * (ABNORMAL) Differential, auto (03/30/2025 12:26 AM [...] revised on 2017. Monocyte pct 1.5 % AURELIO RUSH ([place]) Comment: Interpretive Data Percent cell count reference ranges are not reported, since discordance with absolute values may lead to misinterpretation of CBC data. Current Interpretive Data was last revised on 2017. Eosinophil pct 0.0 % ETHELNE Isai RUSH ([place]) Comment: Interpretive Data Percent cell count reference ranges are not reported, since discordance with absolute values may lead to misinterpretation of CBC data. Current Interpretive Data was last revised on 2017. Basophil pct 0.2 % [facility] ([place]) Comment: Interpretive Data Percent cell count reference ranges are not reported, since discordance with absolute values may lead to misinterpretation of CBC data. Current Interpretive Data was last revised on 2017. Blood 03/30/2025 12:2 6 AM CDT 03/30/2025 12:29 AM CDT us Valeriano Burton MD LAB BLOOD ORDERABLES Final Resu lt AURELIO ADRI (ROANN) 1 [facility] Department [place] [address] * Pro B-type natriuretic peptide (03/30/2025 12:26 [...] Heart J. 2006:27:330-337. 2. Nolan RW, Leah AM. J. AM Maritza Cardiol: Cardiovasc Imag. 2009;2: 216- 225. Interpretive Data Last Revised Date: 2018. Blood 03/30/2025 12:2 6 AM CDT 03/30/2025 12:29 AM CDT us Valeriano Burton MD LAB BLOOD ORDERABLES Final Resu lt [facility] ([place]) 1 [facility] Department [place] [address] * (ABNORMAL) CBC with auto differential (03/30/2025 [...] ([place]ER[place]IO) MCV 94.1 81.3 - 96.4 fL [facility] ([place]) MCH 32.0 27.1 - 33.3 pg [facility] ([place]) MCHC 34.1 32.3 - 35.7 g/dL [facility] ([place]) RDW CV 12.1 11.1 - 14.9 % [facility] ([place]) RDW SD 42.5 35.7 - 48.1 fL [facility] ([place]) NRBC abs 0.00 0.00 - 0.01 K/cumm [facility] ([place]) Blood 03/30/2025 12:2 6 AM CDT 03/30/2025 12:29 AM CDT us Valeriano Burton MD LAB BLOOD ORDERABLES Final Resu lt AURELIO RUSH (ROANN) 1 [facility] Department [place] [address] * (ABNORMAL) Comprehensive metabolic panel (03/30/2025 12:26 AM CDT) Sodium 135 135 - 145 mmol/L Potassium, pl 4.2 3.3 - 4.9 mmol/L [facility] ([place]) Chloride 100 97 - 110 mmol/L [facility] ([place]) CO2 23 22 - 32 mmol/L [facility] ([place]) Anion gap 12 2 - 15 mmol/L [facility] ([place]) BUN 15 6 - 25 mg/dL [facility] ([place]) Creatinine 0.64 0.60 - 1.10 mg/dL [facility] ([place]) Glucose 311(H) 70 - 199 mg/dL [facility] ([place]) [...] (SERGIO) Albumin 3.7 3.5 - 5.0 g/dL [facility] ([place]) Alk phos 113 40 - 130 Units/L [facility] ([place]) ALT 17 7 - 45 Units/L [facility] ([place]) AST 16 10 - 45 Units/L [facility] ([place]) Blood 03/30/2025 12:2 6 AM CDT 03/30/2025 12:29 AM CDT us Valeriano Burton MD LAB BLOOD ORDERABLES Final Resu lt AURELIO RUSH ([place]) 1 [facility] [employer] [place] [address] * (ABNORMAL) POCT glucose (03/30/2025 12:24 AM CDT) Glucose, POC 284(H) 70 - 199 mg/dL Blood 03/30/2025 12:2 4 AM CDT 03/30/2025 12:24 AM CDT us Triston Lynn Jr., MD LAB POCT ORDERABLES - DEVICE Final Result AURELIO RUSH (ROANN) 1 [facility] [place] [address] * Procalcitonin (03/30/2025 12:20 AM CDT) Procalcitonin <0.05 <=0.25 ng/mL Comment:Testing performed by : [facility], [address] [facility], [place]., [address] Blood 03/30/2025 12:2 0 AM CDT 03/30/2025 5:59 PM CDT us Valeriano Burton MD LAB BLOOD ORDERABLES Final Resu lt AURELIO RUSH (ROANN) 1 [facility] [place] [address] * (ABNORMAL) POCT glucose (03/29/2025 10:23 PM CDT) Glucose, POC 331(H) 70 - 199 mg/dL Blood 03/29/2025 10:2 3 PM CDT 03/29/2025 10:23 PM CDT us Triston Lynn Jr., MD LAB POCT ORDERABLES - DEVICE Final Result Performing Organization Address City/[facility]/ZIP Co de Phone Number AURELIO RUSH (ROANN) 1 [facility] [place] [address] * (ABNORMAL) POCT glucose (03/29/2025 9:17 PM CDT) Glucose, POC 401(H) 70 - 199 mg/dL Blood 03/29/2025 9:17 PM CDT 03/29/2025 9:17 PM CDT us Triston Lynn Jr., MD LAB POCT ORDERABLES - DEVICE Final Result Performing Organization Address City/[facility]/ZIP Co de Phone Number AURELIO URSH (ROANN) 1 [facility] [place] [address] * Troponin T high-sensitivity 6-hour (03/29/2025 8:35 PM CDT) Trop T hs <6 <=14 ng/L Comment: Interpretive Data For further hscTnT resources including the diagnostic algorithm and an aid in interpretation, copy and paste this link: https://nrl.testcatalog.org/show/hsTrop Current Interpretive Data last revised 2020. Trop T hs delta 0 ng/L [facility] (ROANN) Trop T hs interp Insignificant [facility] ([place]) Blood 03/29/2025 8:35 PM CDT 03/29/2025 8:36 PM CDT us Alina Whyte NP LAB BLOOD ORDERABLES Final Resul t Performing Organization Address City/[facility]/ZIP Co de Phone Number AURELIO RUSH (ROANN) 1 [facility] [place] [address] * (ABNORMAL) POCT glucose (03/29/2025 8:03 PM CDT) Glucose, POC 463(C) 70 - 199 mg/dL Comment:Glu2: RN/ Notified Blood 03/29/2025 8:03 PM CDT 03/29/2025 8:03 PM CDT us Triston Lynn Jr., MD LAB POCT ORDERABLES - DEVICE Final Result Performing Organization Address [facility] Co de Phone Number AURELIO RUSH (ROANN) 1 [facility] [place] [address] * Troponin T high-sensitivity 4-hour (03/29/2025 5:57 PM CDT) Pathologist [facility] Trop T hs <6 <=14 ng/L Comment: Interpretive Data For further hscTnT resources including the diagnostic algorithm and an aid in interpretation, copy and paste this link: https://nrl.testcatalog.org/show/hsTrop Current Interpretive Data last revised 2020. Trop T hs delta 0 ng/L [facility] ([place]ANN) Trop T hs interp Insignificant [facility] ([place]ANN) Blood 03/29/2025 5:57 PM CDT 03/29/2025 5:58 PM CDT us Alina Whyte [employer] LAB BLOOD ORDERABLES Final Resul t Performing Organization Address City/[facility]/ZIP Co de Phone Number AURELIO RUSH (ROANN) 1 [facility] [place] [address] * (ABNORMAL) POCT glucose (03/29/2025 5:52 PM CDT) Glucose, POC 349(H) 70 - 199 mg/dL Blood 03/29/2025 5:52 PM CDT 03/29/2025 5:52 PM CDT Triston Lynn Jr., MD LAB POCT ORDERABLES - DEVICE Final Result Performing Organization Address [facility]/ZIP Co de Phone Number AURELIO RUSH ([place]IO) [address] [place] [address] of [place] [address] * (ABNORMAL) POCT glucose (03/29/2025 5:04 PM CDT) Pathologist [facility] Glucose, POC 400(H) 70 - 199 mg/dL Blood 03/29/2025 5:04 PM CDT 03/29/2025 5:04 PM CDT Triston Lynn Jr., MD LAB POCT ORDERABLES - DEVICE Final Result Performing Organization Address [facility] de Phone Number AURELIO RUSH (ROANN) [address] [place] [address] [place] [address] * Troponin T high-sensitivity 2-hour (03/29/2025 4:18 PM CDT) [facility] Trop T hs <6 <=14 ng/L Comment: Interpretive Data For further hscTnT resources including the diagnostic algorithm and an aid in interpretation, copy and paste this link: https://nrl.testcatalog.org/show/hsTrop Current Interpretive Data last revised 2020. Trop T hs delta 0 ng/L [facility] ([place]) Trop T hs interp Insignificant [facility] ([place]) Blood 03/29/2025 4:18 PM CDT 03/29/2025 4:23 PM CDT Alina Whyte NP LAB BLOOD ORDERABLES Final Resul t Performing Organization Address City/[facility]/ZIP Co de Phone Number AURELIO RUSH ([place]IO) 1 [facility] Department [place] [address] * Troponin T high-sensitivity series (baseline, 2hr, [...] BLOOD ORDERABLES Final Resul t AURELIO RUSH (ROANN) 1 [facility] Department [place] [address] * eGFR (03/29/2025 2:07 PM CDT) eGFR [...] 03/29/2025 2:11 PM CDT us Alina Whyte [employer] LAB BLOOD ORDERABLES Final Resul t AURELIO RUSH (ROANN) 1 [facility] Department [place] [address] * Differential, auto (03/29/2025 2:07 PM CDT) Neutrophil abs 5.05 1.50 - 6.50 K/cumm Imm gran abs 0.05 0.00 - 0.10 K/cumm [facility] ([place]) Lymphocyte abs 1.76 0.80 - 3.30 K/cumm [facility] ([place]) Monocyte abs 0.50 0.20 - 0.80 K/cumm [facility] ([place]) Eosinophil abs 0.22 0.00 - 0.50 K/cumm [facility] ([place]) Basophil abs 0.04 0.00 - 0.10 K/cumm [facility] ([place]) Neutrophil pct 66.2 % [facility] (ROANN) Comment: Interpretive Data Percent cell count reference [...] 2:07 PM CDT 03/29/2025 2:27 PM CDT Alina Whyte NP LAB BLOOD ORDERABLES Final Resul t [facility]IO [facility] ([place]) 1 [facility] [place] [address] * CBC with auto differential (03/29/2025 2:07 [...] 2:07 PM CDT 03/29/2025 2:27 PM CDT Alina Whyte NP LAB BLOOD ORDERABLES Final Resul t [facility] ([place]) 1 [facility] Department [place] [address] * (ABNORMAL) Comprehensive metabolic panel (03/29/2025 2:07 [...] BLOOD ORDERABLES Final Resul t AURELIO RUSH ([place]ERGIO) 1 [facility] Department [place] [address] * XR Chest 1 Vw Portable (If [...] Influenza A RNA Negative Negative [facility] ([place]) Influenza B RNA Negative Negative [facility] ([place]) RSV RNA Negative Negative [facility] ([place]) Comment: Interpretive data: Testing performed by [facility]. This test is performed using the [employer] Xpert Xpress CoV-2/Flu/RSV plus assay. This is a multiplex, real- time reverse transcriptase PCR assay intended for the qualitative detection of nucleic acid from SARS-CoV-2, influenza A, influenza B, and respiratory syncytial virus. This assay has been cleared by the [place] Food and Drug administration. The performance characteristics have been verified by the [facility]. Results must be considered in the clinical context, and a negative result does not rule out infection. Interpretive Data last revised 2023 Nasopharyngeal 03/29/2025 12 :30 PM CDT 03/30/2025 10:22 AM CDT Narrative AURELIO RUSH (ROANN) - 03/30/2025 11:01 AM CDT Is the Patient experiencing symptoms consistent with COVID?->Yes Alina Whyte NP LAB MICROBIOLOGY - GENERAL ORDER LOLLY Final Result Performing Organization Address City/[facility] Co de Phone Number AURELIO [facility] (ROANN) 1 [facility] Department [place] [address] * ECG 12 lead (03/29/2025 12:21 PM CDT) 03/29/2025 12:2 1 PM CDT Narrative [facility] - 03/30/2025 8:14 AM CDT Vent Rate: 114 bpm RR Interval: 526 msec SC Interval: 168 msec QRS Duration: 93 msec QT Interval: 317 msec QTC Interval: 384 msec P-R-T [place]: 55 - 36 - 55 degrees IMPRESSION: SINUS TACHYCARDIA LOW QRS VOLTAGE IN PRECORDIAL LEADS [QRS DEFLECTION < 1.0 mV IN CHEST LEADS] ABNORMAL RHYTHM ECG Electronically Signed By: Joby Marie MD Alina Whyte NP ECG ORDERABLES Final Result Performing Organization Address [facility]/ZIP Co de Phone Number [facility] from Last 3 Months Insurance Advance Directives For more information, please contact: [phone] * LIMITED - No CPR (Latest Code [...] 9:35 AM 09/17/2024 10:40 PM Care Teams Master [place] Relationship Specialty Start Date End Date Cb Perdue MD PCP - General Family Medicine 01/14/19
--- OUTSIDE RECORDS SUMMARY | 2025-05-11 18:32 | XMS_ITS | Clinical Summary ---
Author Organization [facility] Address [address], [address] [address] Phone Care Team Providers Care Smutter Name Role Phone Cb Perdue MD Primary Care Provider + Allergies No known active allergies Medications ciprofloxacin (CIPRO) 500 MG Tablet TAKE 1 TABLET BY MOUTH TWICE A DAY 0 7 Active fluticasone (FLONASE) 50 MCG/ACT Suspension SPRAY 1 SPRAY INTO BOTH NOSTRILS TWICE A DAY 6 7 Active HYDROcodone-gali taminophen (NORCO) 5-325 MG Tablet TAKE 1 TO 2 TABLETS BY MOUTH EVERY 4 HOURS NEEDED FOR PAIN 0 7 Active metFORMIN (GLUCOPHAGE-XR) 500 MG TABLET SR 24 HR TAKE 2 TABLETS BY MOUTH ONCE DAILY 3 7 Active metroNIDAZOLE (FLAGYL) 500 MG Tablet Take 500 mg by mouth 3 times daily. Active montelukast (SINGULAIR) 10 MG Tablet Take 10 mg by mouth every evening. Active pantoprazole (PROTONIX) 40 MG Tablet Delayed Response Take 1 Tab by mouth 2 times daily. 60 Tab 3 7 Active predniSONE (DELTASONE) 10 MG Tablet Take 4 tabs for days 1 through 5, then take 2 tabs for days 6 through 10, then take 1 tab for days 11 through 15 35 Tablet 5 Active Dulaglutide 0.75 MG/0.5ML Solution Auto-injector by Subcutaneous route. 5 Active albuterol 108 (90 Base) MCG/ACT Aerosol Solution take 2 Puffs by inhalation every 6 hours as needed for Wheezing. 8.5 g 5 Active ondansetron (ZOFRAN-ODT) 4 MG TABLET DISPERSIBLE Take 1 Tablet by mouth every 8 hours as needed for Nausea - 1st line. 10 Tablet 5 Active HYDROcodone-gali taminophen (NORCO) 5-325 MG TabletIndicatio ns:Mild reactive airways disease Take 1-2 Tablets by mouth every 6 hours as needed for Moderate or more severe pain. 10 Tablet 5 Active Encounters Date Type Department Care Team Description 05/03/2025 9:23 AM [facility] - 05/03/2025 12:26 PM [facility] Emergency [facility] [address] [place] [address] Ridge Amaya MD Bronchospasm Discharge Disposition: Discharged to home or Selfcare 05/03/2025 Travel 04/29/2025 5:10 PM STRATEGIC INTELLIGENCE OFFICER - 04/29/2025 10:13 PM [facility] [address] [place] [address] Gabriel Lebron PAC Abdominal pain, right lower quadrant Discharge Disposition: Discharged to home or Selfcare 04/29/2025 Travel 02/23/2025 12:48 PM CDT - 02/23/2025 1:20 PM [facility] [address] [place] [address] Mei Azul, SOFT WORK CIGAR MACHINE OPERATOR, DINING ROOM ATTENDANT [place] Dermatitis due to plants, including poison abdi, [...] Sign Reading Time Taken Comments Blood Pressure 158/86 05/03/2025 12:15 PM STRATEGIC INTELLIGENCE OFFICER Pulse 102 05/03/2025 12:15 PM STRATEGIC INTELLIGENCE OFFICER Temperature 36.6 C (97.8 F) 05/03/2025 12:15 PM STRATEGIC INTELLIGENCE OFFICER Respiratory Rate 21 05/03/2025 12:15 PM STRATEGIC INTELLIGENCE OFFICER Oxygen Saturation 92% 05/03/2025 12:15 PM STRATEGIC INTELLIGENCE OFFICER Inhaled Oxygen Concentration - - Weight 134.7 kg (297 lb) 05/03/2025 9:29 AM STRATEGIC INTELLIGENCE OFFICER Height 172.7 cm (5' 8) 05/03/2025 9:29 AM STRATEGIC INTELLIGENCE OFFICER Body Mass Index 45.16 05/03/2025 9:29 AM STRATEGIC INTELLIGENCE OFFICER Plan of Treatment Health Maintenance Due Date [...] Immunization Combined Discontinued 09/01/2016 DTaP/Tdap/Td Immunization Discontinued 2024, 11/26/2017 TdaP Immunization Completed 02/09/2025, 11/26/2017 Human Papillomavirus (HPV) Immunization Aged Out No longer eligible based on patient's age to complete this topic Meningococcal Immunization (ACWY) Aged Out No longer eligible based on patient's age to complete this topic Rotavirus Immunization Aged Out No lo nger eligible based on patient's age to complete this topic Procedures Procedure Name Priority Date/Time Associated Diagnosis Comments AEROSOL NEBULIZER-INITIAL STAT 05/03/2025 11:43 AM STRATEGIC INTELLIGENCE OFFICER XR CHEST SINGLE VIEW PORTABLE STAT 05/03/2025 10:54 AM STRATEGIC INTELLIGENCE OFFICER XR ABDOMEN KUB FLAT PLATE STAT 05/03/2025 10:40 AM STRATEGIC INTELLIGENCE OFFICER CBC WITH AUTO DIFFERENTIAL STAT 05/03/2025 9:39 AM STRATEGIC INTELLIGENCE OFFICER LIPASE STAT 05/03/2025 9:39 AM STRATEGIC INTELLIGENCE OFFICER CMP (COMPREHENSIVE METABOLIC PANEL) STAT 05/03/2025 9:39 AM STRATEGIC INTELLIGENCE OFFICER COMPLETE BLOOD COUNT (CBC) WITH DIFF STAT 05/03/2025 9:39 AM STRATEGIC INTELLIGENCE OFFICER CT ABDOMEN PELVIS W/ CONTRAST Stat with Interpretation 04/29/2025 8:55 PM STRATEGIC INTELLIGENCE OFFICER LIPASE STAT 04/29/2025 7:57 PM STRATEGIC INTELLIGENCE OFFICER CMP (COMPREHENSIVE METABOLIC PANEL) STAT 04/29/2025 7:57 PM STRATEGIC INTELLIGENCE OFFICER CBC WITH AUTO DIFFERENTIAL STAT 04/29/2025 7:03 PM STRATEGIC INTELLIGENCE OFFICER COMPLETE BLOOD COUNT (CBC) WITH DIFF STAT 04/29/2025 7:03 PM STRATEGIC INTELLIGENCE OFFICER URINALYSIS REFLEX IF INDICATED BY ABNORMAL RESULTS STAT 04/29/2025 5:25 PM STRATEGIC INTELLIGENCE OFFICER CULTURE, URINE STAT 04/29/2025 5:25 PM STRATEGIC INTELLIGENCE OFFICER from Last 3 Months Results * XR CHEST SINGLE VIEW PORTABLE (05/03/2025 10:54 AM STRATEGIC INTELLIGENCE OFFICER) Anatomical Region Laterality Modality Chest N/A Computed Radiogr aphy 05/03/2025 10:5 4 AM STRATEGIC INTELLIGENCE OFFICER Impressions 05/03/2025 11:12 AM STRATEGIC INTELLIGENCE OFFICER IMPRESSION: 1. No acute cardiopulmonary disease. 2. No dilated loops of bowel. No gross free air. 3. Moderate amount of stool in the right colon. Narrative 05/03/2025 11:12 AM STRATEGIC INTELLIGENCE OFFICER DICTATING PHYSICIAN: Link Gann M.D. EXAMINATION: XR ABDOMEN KUB FLAT PLATE, XR CHEST SINGLE VIEW PORTABLE : 05/03/2025 10:40 AM HISTORY: pt c/o Rt flank pain w/ lower abdominal pain and nausea/vomiting. pt had CT abd/pel 04/28/25. COMPARISON: CT of the abdomen and pelvis on 04/29/2025 FINDINGS: Chest x-ray has no focal consolidation or large effusion. Cardiac silhouette is unremarkable. No gross free air. Degenerative changes of the bony thorax. Moderate amount stool in the right colon. No dilated loops of bowel. No gross free air. Degenerative changes of the axial skeleton. Previously seen suspected avascular necrosis of the bilateral femoral heads better identified on CT of the abdomen and pelvis dated 04/29/2025. Procedure Note Link Gann MD - 05/03/2025 DICTATING PHYSICIAN: Link Gann M.D. EXAMINATION: XR ABDOMEN KUB FLAT PLATE, XR CHEST SINGLE VIEW PORTABLE : 0:40 AM HISTORY: pt c/o Rt flank pain w/ lower abdominal pain andnausea/vomiting. pt had CT abd/pel 04/28/25. COMPARISON: CT of the abdomen and pelvis on 04/29/2025 FINDINGS: Chest x-ray has no focal consolidation or large effusion.Cardiac silhouette is unremarkable. No gross free air. Degenerativechanges of the bony thorax. Moderate amount stool in the right colon. No dilated loops of bowel. Nogross free air. Degenerative changes of the axial skeleton. Previouslyseen suspected avascular necrosis of the bilateral femoral heads betteridentified on CT of the abdomen and pelvis dated 04/29/2025. IMPRESSION: 1. No acute cardiopulmonary disease. 2. No dilated loops of bowel. No gross free air. 3. Moderate amount of stool in the right colon. Ridge Amaya MD IMG DIAGNOSTIC ORDERABL ES Final Result * XR ABDOMEN KUB FLAT PLATE (05/03/2025 10:40 AM STRATEGIC INTELLIGENCE OFFICER) Anatomical Region Laterality Modality Abdomen N/A Digital Radiogra phy 05/03/2025 10:4 0 AM STRATEGIC INTELLIGENCE OFFICER Impressions 05/03/2025 11:12 AM STRATEGIC INTELLIGENCE OFFICER IMPRESSION: 1. No acute cardiopulmonary disease. 2. No dilated loops of bowel. No gross free air. 3. Moderate amount of stool in the right colon. Narrative 05/03/2025 11:12 AM STRATEGIC INTELLIGENCE OFFICER DICTATING PHYSICIAN: Link Gann M.D. EXAMINATION: XR ABDOMEN KUB FLAT PLATE, XR CHEST SINGLE VIEW PORTABLE : 05/03/2025 10:40 AM HISTORY: pt c/o Rt flank pain w/ lower abdominal pain and nausea/vomiting. pt had CT abd/pel 04/28/25. COMPARISON: CT of the abdomen and pelvis on 04/29/2025 FINDINGS: Chest x-ray has no focal consolidation or large effusion. Cardiac silhouette is unremarkable. No gross free air. Degenerative changes of the bony thorax. Moderate amount stool in the right colon. No dilated loops of bowel. No gross free air. Degenerative changes of the axial skeleton. Previously seen suspected avascular necrosis of the bilateral femoral heads better identified on CT of the abdomen and pelvis dated 04/29/2025. Procedure Note Link Gann MD - 05/03/2025 DICTATING PHYSICIAN: Link Gann M.D. EXAMINATION: XR ABDOMEN KUB FLAT PLATE, XR CHEST SINGLE VIEW PORTABLE : 0:40 AM HISTORY: pt c/o Rt flank pain w/ lower abdominal pain andnausea/vomiting. pt had CT abd/pel 04/28/25. COMPARISON: CT of the abdomen and pelvis on 04/29/2025 FINDINGS: Chest x-ray has no focal consolidation or large effusion.Cardiac silhouette is unremarkable. No gross free air. Degenerativechanges of the bony thorax. Moderate amount stool in the right colon. No dilated loops of bowel. Nogross free air. Degenerative changes of the axial skeleton. Previouslyseen suspected avascular necrosis of the bilateral femoral heads betteridentified on CT of the abdomen and pelvis dated 04/29/2025. IMPRESSION: 1. No acute cardiopulmonary disease. 2. No dilated loops of bowel. No gross free air. 3. Moderate amount of stool in the right colon. Ridge Amaya MD IMG DIAGNOSTIC ORDERABL ES Final Result * (ABNORMAL) CBC with Auto Differential (05/03/2025 9:39 AM STRATEGIC INTELLIGENCE OFFICER) Only the most recent of2 resultswithin the time period is included. WBC 6.01 4.00 - 12.00 10(3)/mcL 05/03/2025 9:47 AM STRATEGIC INTELLIGENCE OFFICER [facility] RBC 5.56(H) 3.80 - 5.30 10(6)/mcL 05/03/2025 9:47 AM [facility] HEMOGLOBIN (HGB) 17.9(H) 12.0 - 15.8 g/dL 05/03/2025 9:47 AM [facility] HEMATOCRIT (HCT) 51.1(H) 36.0 - 47.0 % 05/03/2025 9:47 AM [facility] MCV 91.9 82.0 - 96.0 fL 05/03/2025 9:47 AM [facility] MCH 32.2 26.0 - 34.0 pg 05/03/2025 9:47 AM [facility] MCHC 35.0 31.0 - 36.0 g/dL 05/03/2025 9:47 AM STRATEGIC INTELLIGENCE OFFICER [facility] PLATELET COUNT 161 140 - 440 10(3)/mcL 05/03/2025 9:47 AM [facility] RDW 11.9 11.8 - 15.5 % 05/03/2025 9:47 AM [facility] MPV 10.1 9.7 - 12.4 fL 05/03/2025 9:47 AM [facility] NEUTROPHILS 70.4 47.0 - 73.0 % 05/03/2025 9:47 AM [facility] LYMPHOCYTES 17.8(L) 18.0 - 42.0 % 05/03/2025 9:47 AM STRATEGIC INTELLIGENCE OFFICER [facility] MONOCYTES 9.3 4.0 - 12.0 % 05/03/2025 9:47 AM STRATEGIC INTELLIGENCE OFFICER [facility] EOSINOPHILS 1.8 0.0 - 5.0 % 05/03/2025 9:47 AM STRATEGIC INTELLIGENCE OFFICER [facility] BASOPHILS 0.5 0.0 - 1.0 % 05/03/2025 9:47 AM STRATEGIC INTELLIGENCE OFFICER [facility] IMMATURE GRANULOCYTE 0.2 0.0 - 0.4 % 05/03/2025 9:47 AM [facility] ABSOLUTE NEUTROPHILS 4.23 1.60 - 7.70 10(3)/[facility] 05/03/2025 9:47 AM [facility] ABSOLUTE LYMPHOCYTES 1.07(L) 1.30 - 3.20 10(3)/[facility] 05/03/2025 9:47 AM [facility] ABSOLUTE MONOCYTES 0.56 0.20 - 1.00 10(3)/[facility] 05/03/2025 9:47 AM STRATEGIC INTELLIGENCE OFFICER [facility] ABSOLUTE EOSINOPHIL 0.11 0.00 - 0.40 10(3)/[facility] 05/03/2025 9:47 AM STRATEGIC INTELLIGENCE OFFICER [facility] ABSOLUTE BASOPHILS 0.03 0.00 - 0.10 10(3)/[facility] 05/03/2025 9:47 AM [facility] ABSOLUTE IMMATURE GRANULOCYTE 0.01 0.00 - 0.03 10 (3) [facility]. 05/03/2025 9:47 AM [facility] NRBC PER 100 WBC 0 05/03/20 9:47 AM [facility] Blood Venipuncture / Unknown 05/03/2025 9:39 AM [facility] 05/03/2025 9:45 AM STRATEGIC INTELLIGENCE OFFICER us Ridge Amaya MD HEMATOLOGY ORDERABLES F inal Result [facility] [address] [place] [address] * Lipase (05/03/2025 9:39 AM STRATEGIC INTELLIGENCE OFFICER) Only the most recent of2 resultswithin the time period is included. Pathologist [facility] LIPASE 13 8 - 78 U/L 05/03/2025 10:06 AM STRATEGIC INTELLIGENCE OFFICER [facility] Blood Venipuncture / Unknown 05/03/2025 9:39 AM STRATEGIC INTELLIGENCE OFFICER 05/03/2025 9:45 AM STRATEGIC INTELLIGENCE OFFICER Ridge Amaya MD CHEMISTRY ORDERABLES Fi nal Result [facility] [address] [place] [address] * (ABNORMAL) CMP (05/03/2025 9:39 AM STRATEGIC INTELLIGENCE OFFICER) Only the most recent of2 resultswithin the time period is included. Pathologist [facility] SODIUM 129(L) 136 - 145 mmol/L 05/03/2025 10:06 AM [facility] POTASSIUM 4.2 3.5 - 5.1 mmol/L 05/03/2025 10:06 AM [facility] CHLORIDE 92(L) 98 - 107 mmol/L 05/03/2025 10:06 AM [facility] CO2, VENOUS 24 22 - 30 mmol/L 05/03/2025 10:06 AM [facility] ANION GAP 17.2 <18.0 mmol/L 05/03/2025 10:06 AM [facility] GLUCOSE 180(H) 70 - 99 mg/dL 05/03/2025 10:06 AM [facility] BUN 10 10 - 20 mg/dL 05/03/2025 10:06 AM [facility] CREATININE, BLOOD 0.76 0.60 - 1.00 mg/dL 05/03/2025 10:06 AM [facility] BUN/CREATININE RATIO 13 12 - 20 ratio 05/03/2025 10:06 AM [facility] TOTAL PROTEIN 8.0 6.0 - 8.0 g/dL 05/03/2025 10:06 AM [facility] ALBUMIN 4.3 3.5 - 5.0 g/dL 05/03/2025 10:06 AM [facility] A/G RATIO 1.2 1.0 - 2.2 05/03/2025 10:06 AM [facility] CALCIUM 9.6 8.7 - 10.5 mg/dL 05/03/2025 10:06 AM [facility] T BILI 0.5 0.2 - 1.2 mg/dL 05/03/2025 10:06 AM [facility] SGOT (AST) 58(H) <43 U/L 05/03/2025 10:06 AM [facility] Comment: Specimen is hemolyzed. In vitro hemolysis could affect results. Clinical correlation advised. SGPT (ALT) 73(H) <56 U/L 05/03/2025 10:06 AM [facility] ALKALINE PHOSPHATASE 121 40 - 150 U/L 05/03/2025 10:06 AM [facility] GFR, ESTIMATED >60 >=60 05/03/2025 10:06 AM [facility] Comment: Creatinine Clearance is the preferred criteria for selecting drug dose adjustments in renally impaired patients. The GFR is provided as additional pertinent clinical information. GFR is reported in mL/min/1.73 sq m. Calculation based on the 2020 Chronic Kidney Disease Epidemiology Collaboration (CKD-EPI) equation refit without adjustment for race. GFR, EST. >60 >=60 025 10:06 AM [facility] Comment: Creatinine Clearance is the preferred criteria for selecting drug dose adjustments in renally impaired patients. The GFR is provided as additional pertinent clinical information. GFR is reported in mL/min/1.73 sq m. Calculation based on the 2009 Chronic Kidney Disease Epidemiology Collaboration (CKD-EPI). GFR, EST. NONAFRICAN >60 >=60 05/03/2025 10:06 AM STRATEGIC INTELLIGENCE OFFICER [facility] Comment: Creatinine Clearance is the preferred criteria for selecting drug dose adjustments in renally impaired patients. The GFR is provided as additional pertinent clinical information. GFR is reported in mL/min/1.73 sq m. Calculation based on the 2009 Chronic Kidney Disease Epidemiology Collaboration (CKD-EPI). Blood Venipuncture / Unknown 05/03/2025 9:39 AM STRATEGIC INTELLIGENCE OFFICER 05/03/2025 9:45 AM STRATEGIC INTELLIGENCE OFFICER us Ridge Amaya MD CHEMISTRY ORDERABLES Fi nal Result [facility] [address] [place] [address] * CT ABDOMEN PELVIS W/ CONTRAST (04/29/2025 8:55 PM STRATEGIC INTELLIGENCE OFFICER) Anatomical Region Laterality Modality Abdomen N/A Computed Tomogra phy 04/29/2025 8:55 PM STRATEGIC INTELLIGENCE OFFICER Impressions 04/30/2025 7:05 AM STRATEGIC INTELLIGENCE OFFICER Impression: 1. No acute findings identified within the abdomen or pelvis. 2. 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 The preliminary report and any related communication were provided by [facility] After Hours service, as documented in the medical record. Narrative 04/30/2025 7:05 AM STRATEGIC INTELLIGENCE OFFICER DICTATING PHYSICIAN: Scott Bourne M.D. - [facility] Examination: CT abdomen and pelvis with contrast. Clinical Information: Right flank pain. Lower abdominal pain. Comparison: None. Technique: IV contrast: 100 mL of Isovue-300. Enteric contrast: Oral contrast: None. Technical comments: Standard technique. Dose reduction: This CT exam was performed using one or more of the following dose-reduction techniques: Automated exposure control, adjustment of the mA and/or kV according to patient size, and/or use of iterative reconstruction technique.Radiation dose reduction techniques were employed. CTDIvol: 4.1 - 27.8 mGy. DLP: 2871 mGy- cm. Findings: LOWER CHEST The heart is normal in size. No pericardial effusion. Minimal bibasilar atelectasis. No pleural effusion. UPPER ABDOMEN Liver and bile ducts: The liver is morphologically normal. Hepatic steatosis. No focal suspicious hepatic lesion. The portal vein and hepatic veins are patent. No biliary dilatation. Gallbladder: No calcified intraluminal stones. No gallbladder wall thickening or pericholecystic fluid. Pancreas: Normal in morphology. No peripancreatic inflammatory changes. Spleen: Normal. RETROPERITONEUM Adrenals: Normal. Kidneys: Normal in morphology and symmetrically enhance. No focal suspicious renal lesion. There is no hydronephrosis or ureterectasis, bilaterally. Lymph nodes: No suspicious lymphadenopathy in the abdomen or pelvis. BOWEL AND PERITONEUM Bowel: The small and large bowel is normal in caliber and wall thickness. There is no small or large bowel obstruction. Colonic diverticulosis without evidence of diverticulitis. The appendix is normal. The terminal ileum is normal. The distal esophagus, stomach, and duodenum are normal. The duodenum crosses midline. Tiny fat-containing umbilical hernia. Free air or fluid: None. VASCULATURE There is no abdominal aortic aneurysm. The IVC is normal in caliber. The renal veins are patent. The mesenteric veins are patent. PELVIS Anteverted uterus. No suspicious adnexal lesions demonstrated. The urinary bladder is normal. No intraluminal calculus identified. BONES AND SOFT TISSUES Suspected avascular necrosis involving both femoral heads without evidence of subchondral collapse.. Multilevel degenerative changes identified within the lumbar spine. Procedure Note Scott Bourne MD - 04/30/2025 DICTATING PHYSICIAN: Scott Bourne M.D. - [facility] Examination: CT abdomen and pelvis with contrast. Clinical Information: Right flank pain. Lower abdominal pain. Comparison: None. Technique: IV contrast: 100 mL of Isovue-300. Enteric contrast: Oral contrast: None. Technical comments: Standard technique. Dose reduction: This CT exam was performed using one or more of thefollowing dose-reduction techniques: Automated exposure control,adjustment of the mA and/or kV according to patient size, and/or use ofiterative reconstruction technique.Radiation dose reduction techniqueswere employed. CTDIvol: 4.1 - 27.8 mGy. DLP: 2871 mGy- cm. Findings: LOWER CHEST The heart is normal in size. No pericardial effusion. Minimalbibasilar atelectasis. No pleural effusion. UPPER ABDOMEN Liver and bile ducts: The liver is morphologically normal. Hepaticsteatosis. No focal suspicious hepatic lesion. The portal vein andhepatic veins are patent. No biliary dilatation. Gallbladder: No calcified intraluminal stones. No gallbladder wallthickening or pericholecystic fluid. Pancreas: Normal in morphology. No peripancreatic inflammatorychanges. Spleen: Normal. RETROPERITONEUM Adrenals: Normal. Kidneys: Normal in morphology and symmetrically enhance. No focalsuspicious renal lesion. There is no hydronephrosis or ureterectasis,bilaterally. Lymph nodes: No suspicious lymphadenopathy in the abdomen or pelvis. BOWEL AND PERITONEUM Bowel: The small and large bowel is normal in caliber and wallthickness. There is no small or large bowel obstruction. Colonicdiverticulosis without evidence of diverticulitis. The appendix isnormal. The terminal ileum is normal. The distal esophagus, stomach, andduodenum are normal. The duodenum crosses midline. Tiny fat-containingumbilical hernia. Free air or fluid: None. VASCULATURE There is no abdominal aortic aneurysm. The IVC is normal in caliber.The renal veins are patent. The mesenteric veins are patent. PELVIS Anteverted uterus. No suspicious adnexal lesions demonstrated. Theurinary bladder is normal. No intraluminal calculus identified. BONES AND SOFT TISSUES Suspected avascular necrosis involving both femoral heads withoutevidence of subchondral collapse.. Multilevel degenerative changesidentified within the lumbar spine. Impression: 1. No acute findings identified within the abdomen or pelvis. 2. Suspected avascular necrosis of both femoral heads without evidence ofsubchondral collapse. The preliminary report and any related communication were provided by[facility] After Hours service, as documented in the medical record. Gabriel Lebron [facility] IMG CT ORDERABLES Fi nal Result * (ABNORMAL) URINALYSIS REFLEX IF INDICATED BY ABNORMAL RESULTS (04/29/2025 5:25 PM STRATEGIC INTELLIGENCE OFFICER) SPECIFIC GRAVITY 1.025 1.003 - 1.030 04/29/2025 6:39 PM STRATEGIC INTELLIGENCE OFFICER [facility] URINE PH 6.0 5.0 - 9.0 04/29/2025 6:39 PM STRATEGIC INTELLIGENCE OFFICER [facility] WBC ESTERASE 25 /ul(A) Negative 04/29/2025 6:39 PM STRATEGIC INTELLIGENCE OFFICER [facility] NITRITE Negative Negative 04/29/2025 6:39 PM STRATEGIC INTELLIGENCE OFFICER [facility] PROTEIN, RANDOM URINE 30 mg/dL(A) Negative 04/29/2025 6:39 PM STRATEGIC INTELLIGENCE OFFICER [facility] URINE GLUCOSE, QUAL 1000 mg/dL(A) Negative 04/29/2025 6:39 PM STRATEGIC INTELLIGENCE OFFICER [facility] URINE KETONES 5 mg/dL(A) Negative 04/29/2025 6:39 PM STRATEGIC INTELLIGENCE OFFICER [facility] UROBILINOGEN 1 mg/dL(A) Normal mg/dL 04/29/2025 6:39 PM STRATEGIC INTELLIGENCE OFFICER [facility] URINE BLOOD 10 /uL(A) Negative dileep/ul 04/29/2025 6:39 PM STRATEGIC INTELLIGENCE OFFICER [facility] URINALYSIS COLOR Dark Yellow 025 6:39 PM [facility] URINALYSIS CLARITY Slightly Cloudy 04/29/2025 6:39 PM STRATEGIC INTELLIGENCE OFFICER [facility] WBC (Urine) 6-10(A) Negative, 0-5 /hpf 04/29/2025 6:39 PM [facility] URINE RBC'S 3-5(A) Negative, 0-2 /hpf 04/29/2025 6:39 PM STRATEGIC INTELLIGENCE OFFICER [facility] EPITHELIAL CELLS Large amount squamous /lpf 04/29/2025 6:39 PM STRATEGIC INTELLIGENCE OFFICER [facility] BACTERIA, URINE Many(A) Negative /hpf 04/29/2025 6:39 PM [facility] URINE MUCOUS Many 04/29/2025 6:39 PM [facility] Urine URINE SPECIMEN OBTAINED BY CLEAN CATCH PROCEDURE / Unknown Non-Phlebotomy Collection / Unknown 04/29/2025 5:25 PM STRATEGIC INTELLIGENCE OFFICER 04/29/2025 6:16 PM STRATEGIC INTELLIGENCE OFFICER us Cristin Herrera MD URINE ORDERABLES Final Result [facility] [address] [place] [address] * Culture, Urine (04/29/2025 5:25 PM STRATEGIC INTELLIGENCE OFFICER) CULTURE RESULTS Mixed Growth or 3 or More Organisms, Probable Collection Contamination, Suggest Repeat 05/01/2025 10:19 AM STRATEGIC INTELLIGENCE OFFICER [facility] Urine URINE SPECIMEN OBTAINED BY CLEAN CATCH PROCEDURE / Unknown Non-Phlebotomy Collection / Unknown 04/29/2025 5:25 PM STRATEGIC INTELLIGENCE OFFICER 04/29/2025 6:16 PM STRATEGIC INTELLIGENCE OFFICER us Cristin Herrera MD MICROBIOLOGY - GENERAL ORDERA BLES Final Result [facility] [address] [place] [address], from Last 3 Months Insurance MEDICAID [place] Care Teams Smutter Relationship Specialty Start Date End Date Cb Perdue MD PCP - General Family Medicine 03/21/17
[2025-05-11] MEDS: IPRATROPIUM 0.5 MG/ALBUTEROL SULFATE 2.5 MG (BASE) AMPUL.NEB 3 ML INHALATION ×2 (18:59→21:12)
[2025-05-11] MEDS: KETOROLAC 15 MG/ML VIAL (*BKC) IV PUSH (20:00)
[2025-05-11] MEDS: MAGNESIUM SULF 2 GM/WATER 50ML 2 GM/50 ML BAG IVPB (20:05)
[2025-05-11 20:20] LABS: BEDSIDEPREGUCG Negative (Negative)
--- NOTE | 2025-05-11 20:20 | PC.NURSE ---
Pt AOx4 presents to ED for worsening abdominal pain radiating everywhere, per pt was sent from PCP for further evaluation. Pt states she was just taken off oxycodone to help with GI symptoms, but has not improved. Pt ambulatory to bathroom with steady gait for urine sample.
[2025-05-11 20:39] LABS: Add Urine Microscopic? YES; Appearance Urine Clear (Clear); Glucose Urine UA 3+ mg/dL (Negative); Leukocyte Esterase Ur Negative LEU/UL (Negative); Need Manual Microscopic Reviewed; Nitrate Urine Negative (Negative); Non Pathogenic Casts 0-2; Specific Grav Ur > 1.045 (1.001-1.035)
[2025-05-11] MEDS: ACETAMINOPHEN 500 MG TABLET 1000 MG PO (21:10)
[2025-05-11] MEDS: FAMOTIDINE 20 MG/2 ML VIAL IV PUSH (21:12)
--- NOTE | 2025-05-11 21:13 | ECG_ITS ---
Test Date: 2025-05-11 21:17:50 Measurements Intervals [place] Rate: 98 P: 45 [place]: 169 QRS: 16 QRSD: 95 T: 40 QT: 349 QTc: 446 Interpretive Statements SINUS RHYTHM BASELINE ARTIFACT- I, II, AVR, AVL, AVF, V1 NORMAL ECG Compared to ECG 05/11/2025 17:15:43 HEART RATE HAS DECREASED Electronically Signed On 05-12-2025 06:07:54 [employer] by Dejuan Cardoso D.O.
[2025-05-11 21:34] LABS: Troponin I 0.016 ng/mL (0.000-0.034)
== END 2025-05-11 22:55 | disposition home or self-care (01) ==
PROVIDERS: Emergency Medicine; Emergency Provider Physician Assistant; PCP Family Medicine Adolescent Medicine
DX: J44.1 Chronic obstructive pulmonary disease with (acute) exacerbation (principal); R10.84 Generalized abdominal pain; F17.210 Nicotine dependence, cigarettes, uncomplicated; E11.9 Type 2 diabetes mellitus without complications; F41.9 Anxiety disorder, unspecified; F32.A Depression, unspecified
CPT/HCPCS: 36415; 71275; 74177; 80053; 81001; 81025; 83605; 83690; 84484; 85025; 85610; 85730; 87637; 93005; 94640; 96365; 96366; 96375; 99284; A9270; J1885; J2919; J3475; Q9967